=== PATIENT | male | born 1950 | race Caucasian/White ===

== ENCOUNTER → 2016-07-03 | Outpatient (CLI) | payer OTHER ==
[~2016-07-03] MED LIST: ACET300T2 PO; ASPEC81 PO; ATV5X PO; CALCTAB5 PO; CHOL100040 PO; CLOP1TAB5 PO; CYAN100020 PO; LPR25 PO; LPT40 PO; LSN/10125 PO; MULT-506 PO; NRN600 PO; TRAM-10 PO; XPNIN INH; [UNRECOGNIZED DRUG - CODE] SL
[2016-07-03 12:58] LABS: BLOOD UREA NITROGEN 21 mg/dl (7-18); BUN/CREATININE RATIO 21.4 (10-20); CARBON DIOXIDE 29 mmol/L (21-32); CHLORIDE 106 mmol/L (98-107); GLUCOSE 94 mg/dl (70-99); MAGNESIUM 2.1 mg/dl (1.8-2.4); SODIUM 144 mmol/L (136-145)
== END | disposition home or self-care (01) ==
LOC: C.LABPVFM 08:21
PROVIDERS: ATTEND Internal Medicine Interventional Cardiology
DX: I25.10 Atherosclerotic heart disease of native coronary artery without angina pectoris (principal)

== ENCOUNTER → 2017-06-12 | Outpatient (CLI) | payer OTHER ==
--- NOTE | 2017-06-12 16:03 | DIAGNOSTIC IMAGING REPORT ---
THORACIC SPINE 3 VIEWS HISTORY: Upper back pain. STRAIN MUSCLE AND TENDON OF BACK WALL OF THORAX COMPARISON: Thoracic spine 08/28/2012. FINDINGS: There is no fracture. No subluxation. Suture material and surgical clips within the upper abdomen. Paraspinal soft tissues are unremarkable. Flowing anterior osteophytes within the mid to lower thoracic spine have progressed. Mild degenerative disc disease seen within the thoracic spine again noted. IMPRESSION: No fracture or subluxation within the thoracic spine. Electronically signed by: Yovany Briceno M.D. 06/12/2017 4:02 PM Dictated Date/Time: 06/12/2017 4:00 PM
== END | disposition home or self-care (01) ==
LOC: C.RADPV 15:35
PROVIDERS: ATTEND Family Medicine
DX: S29.012A Strain of muscle and tendon of back wall of thorax, initial encounter (principal); X58.XXXA Exposure to other specified factors, initial encounter

== ENCOUNTER 2019-10-15 05:19 | Inpatient (IN) ==
--- NOTE | 2019-10-15 05:41 | Emergency Department Note ---
Impression & Plan Acute GI bleeding, Syncope, Anemia ED Provider Note NAME: CHRISTINA MILLER AGE: 69 SEX: M ARRIVES VIA: Ambulance INFORMANT: Patient EMS ED PROVIDER(S): Sara Ayoub DO CHIEF COMPLAINT: Syncope PLAN: Disposition: The patient was admitted to the [facility] Condition: Guarded MEDICAL DECISION MAKING: This is a 69-year-old male patient with a history of gastric bypass from 2003 who presents to the emergency department with multiple episodes of syncope. The patient was significantly hypotensive on scene and required a liter of normal saline solution to fluid resuscitate him to a blood pressure of 90/55. Laboratory testing revealed significant anemia with a hemoglobin of 6. The patient was typed and crossed for 2 units of packed red blood cells. A Protonix drip was started. On physical exam, the patient was mentating normally here in the emergency department but had obvious melena from the rectum. The patient has no history of this in the past. He has no other associated symptoms. He did have multiple episodes of diarrhea tonight in between the episodes of passing out. Triage Nursing notes reviewed and agree them. Additional history obtained from EMS Prior medical records reviewed Vital Signs: reviewed and remarkable for hypotension Differential diagnosis: Dehydration, anemia, GI bleed, medication side effects ER treatment provided: IV normal saline solution Diagnostics interpreted by me: ECG: Normal sinus rhythm at 78 with PACs. No obvious ischemia no ST segment elevation. No T wave inversion Cardiac Monitoring: Normal sinus rhythm at 72 Laboratory studies: See below HPI: 69/M arrives for evaluation of syncope. This is a 69-year-old male patient who awoke to let his dog out. He was feeling fine until he went to the bathroom and had an episode of diarrhea. The patient describes having an episode of syncope which he landed on the floor. Upon regaining consciousness, the patient continued to feel lightheaded. He had further episodes of diarrhea and called EMS. Upon EMS arrival, the patient's blood pressure was 64/41. After 1 L of IV normal saline solution, the patient's blood pressure was 90/55. The patient denies ever having episodes of hypotension like this in the past. I spoke with the patient's on the phone and she describes him having some recent hip pain for which she was taking diclofenac over approximately 10 days. ROS: See above HPI for pertinent positives & negatives. A total of 10 systems reviewed and were otherwise negative. PAST MEDICAL HISTORY:See Below PAST SURGICAL HISTORY:See Below FAMILY HISTORY:See Below SOCIAL HISTORY:See Below HOME MEDICATIONS:See Below ALLERGIES:See Below VITALS:See Below PHYSICAL EXAMINATION: This is a pleasant 69-year-old male patient who is somewhat pale and diaphoretic on physical exam. HEENT: Head - normocephalic and atraumatic Pupils are equal, round, and reactive to light. Extraocular eye muscles are intact, and sclera are anicteric. Nose - moist nasal mucosa without discharge. Mouth - moist buccal mucosa. Oropharynx is nonerythematous and there is no tonsillar exudate or edema noted. Neck: Supple; no cervical lymphadenopathy or thyromegaly Heart: Regular rate and rhythm. There is a normal S1 and S2 with no murmurs, clicks, or gallops appreciated. Lungs: Clear to auscultation bilaterally with no wheezes, rales, or rhonchi. Abdomen: Soft, completely nontender, nondistended, with good bowel sounds. There are no palpable pulsatile masses or hepatosplenomegaly. There is no guarding, rigidity, or rebound noted. Extremities: No evidence of cyanosis, clubbing, or edema. There are easily palpable peripheral pulses. Skin: Pale, warm and diaphoretic with good turgor and no rashes. ED COURSE: Times/Reassessments: 0525: The patient was evaluated in room C9. A complete history and physical was performed. Previous electronic medical records were reviewed. A second IV lock was initiated and the patient was bolused with 500 cc of normal saline solution. He was typed and screened. An order was placed for continuous cardiac monitoring. He remained in a normal sinus rhythm at 72. A twelve-lead EKG was obtained. 0620: I reviewed the results of the laboratory studies with the patient. He was consented for a blood transfusion. 0630: I spoke with the patient's on the phone. I ordered a IV Protonix drip. I discussed the case with Dr. Kirkpatrick who will evaluate the patient for further care. I have personally spent greater than 50 minutes of critical care time in the dir ect management of this patient. This includes bedside care, interpretation of diagnostic studies, and testing, discussion with consultants, patient, and family members, and other required patient management activities. This 50 minutes in excess of all separately billable procedures. Sara Ayoub DO Past Med/Surg History Medical History (Updated 10/15/19 @ 07:17 by Sara Ayoub DO) Acute ID, inferior wall (Inactive) Acute ID, true posterior wall (Inactive) Adrenal myelolipoma (Resolved) Arthritis (Chronic) Coronary artery disease (Chronic) Hypertension (Chronic) Nephrolithiasis (Resolved) Presence of drug coated stent in posterior descending branch of right coronary artery (Resolved) Presence of drug coated stent in right coronary artery (Resolved) Renal cyst, acquired (Resolved) Surgical History (Updated 10/15/19 @ 07:08 by Nasir Pennington MD) History of cholecystectomy History of gastric bypass History of gastric surgery S/P cataract surgery Social History Preferred Language: Japanese marital status: Current Living Situation: Spouse current occupational status: retired Feels Safe at Home: Yes Smoking Status: Current every day smoker Cigarettes Per Day: 5 ; Hx Alcohol Use: Yes Alcohol Intake Frequency: Daily Hx Substance Use: No Dental Care, Regularly: No Seatbelt Use: always Allergies Allergies Allergy/AdvReac Type Severity Reaction Status Date / Time atorvastatin Allergy Unknown Verified 10/07/19 14:36 grass pollen Allergy Unknown Verified 10/07/19 14:36 house dust Allergy Unknown Verified 10/07/19 14:36 house dust mite Allergy Unknown Verified 10/07/19 14:36 verapamil Allergy Unknown Verified 10/07/19 14:36 Beta-Blockers Allergy Verified 10/07/19 14:36 (Beta-Adrenergic Bloc Home Meds Home Medications Medication Instructions Recorded Confirmed cholecalciferol (vitamin D3) 125 5,000 units PO DAILY cap 03/22/19 10/15/19 mcg (5,000 unit) capsule Previous Rx's Medication Instructions Recorded aspirin 81 mg tablet,delayed 81 mg PO DAILY #30 tab 02/18/19 release metoprolol succinate 25 mg 25 mg PO DAILY #90 tab 04/08/19 tablet,extended release 24 hr lisinopril 10 mg tablet 10 mg PO DAILY #90 tab 09/08/19 clopidogrel 75 mg tablet 75 mg PO DAILY #90 tab 09/22/19 diclofenac sodium 75 mg 75 mg PO BID PRN #20 tab 09/30/19 tablet,delayed release tramadol 50 mg tablet 50 mg PO TID PRN #30 tab 10/07/19 Results & Data (ED) Vital Signs Vital Signs - 24 hr 10/15/19 05:25 10/15/19 05:31 10/15/19 05:59 Temperature 36.4 C L Temperature Source Oral Pulse Rate 72 87 72 Pulse Rate [Right Finger] Pulse Rate from SpO2 Sensor 77 Respiratory Rate 18 23 24 Respiratory Effort / Characteristics Respiratory Depth Normal Blood Pressure 113/72 93/64 L 118/64 Blood Pressure [Right Arm] Blood Pressure Mean 85 72 82 Blood Pressure Mean [Right Arm] Pulse Oximetry 95 91 100 Oxygen Delivery Method Room Air Room Air Room Air Sepsis Recent Fever Within 48 Hours No Sepsis Action Taken by Nursing No Action Required 10/15/19 06:30 10/15/19 07:06 Temperature Temperature Source Pulse Rate 84 Pulse Rate [Right Finger] 88 Pulse Rate from SpO2 Sensor 84 Respiratory Rate 20 20 Respiratory Effort / Characteristics Non-Labored Respiratory Depth Normal Blood Pressure 112/61 Blood Pressure [Right Arm] 100/66 Blood Pressure Mean 84 Blood Pressure Mean [Right Arm] 77 Pulse Oximetry 100 99 Oxygen Delivery Method Room Air Room Air Sepsis Recent Fever Within 48 Hours Sepsis Action Taken by Nursing Laboratory Data Result diagrams: 10/15/19 05:30 10/15/19 05:30 Lab Results 10/15/19 10/15/19 10/15/19 Range/Units 05:30 05:30 05:40 WBC 17.63 H (4.8-10.8) K/uL RBC 2.66 L (4.7-6.1) M/uL Hgb 6.8 L* (14.0-18.0) g/dL Hct 22.4 L (42-52) % MCV 84.2 (80-100) fL MCH 25.6 (25-34) pg MCHC 30.4 L (32-36) g/dL RDW Std Deviation 47.4 H (36.4-46.3) fL RDW Coeff of Td 15.4 H (11.5-14.5) % Plt Count 456 H (130-400) K/uL MPV 8.8 (7.4-10.4) fL Immature Gran % (Auto) 1.7 % Neut % (Auto) 82.0 % Lymph % (Auto) 9.8 % [place] % (Auto) 5.8 % Eos % (Auto) 0.5 % Baso % (Auto) 0.2 % Immature Gran # (Auto) 0.30 H (0.00-0.02) K/uL Neut # (Auto) 14.46 H (1.4-6.5) K/uL Lymph # (Auto) 1.72 (1.2-3.4) K/uL [place] # (Auto) 1.03 H (0.11-0.59) K/uL Eos # (Auto) 0.08 (0-0.5) K/uL Baso # (Auto) 0.04 (0-0.2) K/uL Absolute Nucleated RBC 0.03 H (0-0) K/uL Nucleated RBC % (auto) 0.2 % Polychromasia 1+ Hypochromasia Present Anisocytosis Present Sodium 143 (136-145) mmol/L Potassium 4.0 (3.5-5.1) mmol/L Chloride 113 H (98-107) mmol/L Carbon Dioxide 27 (21-32) mmol/L Anion Gap 3.0 (3-11) BUN 33 H (7-18) mg/dl Creatinine 1.07 (0.6-1.4) mg/dl Est Cr Clr Drug Dosing 90.8 ml/min Est GFR ( Amer) 81.7 Est GFR (Non-Af Amer) 70.5 BUN/Creatinine Ratio 31.3 H (10-20) Glucose 162 H (70-99) mg/dl Calcium 8.2 L (8.5-10.1) mg/dl Magnesium 2.0 (1.8-2.4) mg/dl Total Bilirubin 0.1 L (0.2-1) mg/dl AST 26 (15-37) U/L ALT 32 (12-78) U/L Alkaline Phosphatase 91 (45-117) U/L Troponin I < 0.015 (0-0.045) ng/ml Total Protein 5.6 L (6.4-8.2) gm/dl Albumin 2.3 L (3.4-5.0) gm/dl Globulin 3.3 (2.5-4.0) gm/dl Albumin/Globulin Ratio 0.7 L (0.9-2) TSH 2.280 (0.300-4.500) uIu/ml Blood Type O Positive Antibody Screen NEGATIVE Crossmatch See Detail Administered Medications Discontinued Medications Sodium Chloride (Nss) 500 mls @ 999 mls/hr IV .Q31M ODILON Stop: 10/15/19 06:15 Last Infusion: 10/15/19 06:42 Dose: 0 mls/hr Documented by: [id number] Admin: 10/15/19 06:00 Dose: 999 mls/hr Documented by: [id number] Discharge Plan Visit Data Chief Complaint: Hypotension Stated Complaint: HYPOTENSION/SYNCOPE Other Complaint: Syncope ED Provider: Sara Ayoub Discharge Problem: Acute GI bleeding, Syncope, Anemia Forms Stand Alone Forms: [facility] Prescriptions Prescriptions: No Action clopidogrel 75 mg tablet 75 mg PO DAILY Qty: 90 RF: 3 diclofenac sodium 75 mg tablet,delayed release (DR/EC) 75 mg PO BID PRN (Reason: pain) Qty: 20 RF: 0 aspirin 81 mg tablet,delayed release (DR/EC) 81 mg PO DAILY Qty: 30 RF: 2 metoprolol succinate 25 mg tablet extended release 24 hr 25 mg PO DAILY Qty: 90 RF: 3 cholecalciferol (vitamin D3) 5,000 unit capsule 5,000 units PO DAILY RF: 0 lisinopril 10 mg tablet 10 mg PO DAILY Qty: 90 RF: 1 tramadol 50 mg tablet 50 mg PO TID PRN (Reason: pain) Qty: 30 RF: 0 Discharge Problem: Syncope Qualifiers: Syncope type: unspecified Qualified Code(s): R55 - Syncope and collapse Anemia Qualifiers: Anemia type: other cause Other causes of anemia: acute posthemorrhagic Qualified Code(s): D62 - Acute posthemorrhagic anemia
[2019-10-15] MEDS ORDERED: SODIUM CHLORIDE 0.9% 500 ML IV SCH (05:45)
[2019-10-15 06:02] LABS: Hematocrit (blood only) 22.4 % (42-52); Hemoglobin 6.8 g/dL (14.0-18.0); Mean Corpuscular Hemoglobin 25.6 pg (25-34); Mean Corpuscular Hgb Conc 30.4 g/dL (32-36); Mean Corpuscular Volume 84.2 fL (80-100); Mean Platelet Volume 8.8 fL (7.4-10.4); Nucleated RBC # (auto) 0.03 K/uL (0-0); Nucleated RBC % (auto) 0.2 %; Platelet Count 456 K/uL (130-400); RDW Coefficient of Variation 15.4 % (11.5-14.5); RDW Standard Deviation 47.4 fL (36.4-46.3); Red Blood Count 2.66 M/uL (4.7-6.1); White Blood Count 17.63 K/uL (4.8-10.8)
[2019-10-15 06:07] LABS: Alanine Aminotransferase 32 U/L (12-78); Albumin Level 2.3 gm/dl (3.4-5.0); Aspartate Aminotransferase 26 U/L (15-37); BUN Creatinine Ratio 31.3 (10-20); Blood Urea Nitrogen 33 mg/dl (7-18); Calcium 8.2 mg/dl (8.5-10.1); Carbon Dioxide 27 mmol/L (21-32); Chloride 113 mmol/L (98-107); Creatinine Clr Calc Pharmacy 90.8 ml/min; Est GFR (African American) 81.7; Est GFR (Non-African American) 70.5; Glucose 162 mg/dl (70-99); INR 1.1 (0.9-1.1); Prothrombin Time 11.4 Seconds (9.0-12.0); Sodium 143 mmol/L (136-145)
[2019-10-15] MEDS ORDERED: SODIUM CHLORIDE 0.9% 250 ML IV PRN ×3 (06:14→18:14)
[2019-10-15 06:18] LABS: Albumin Globulin Ratio 0.7 (0.9-2); Alkaline Phosphatase 91 U/L (45-117); Bilirubin,Total 0.1 mg/dl (0.2-1); Globulin 3.3 gm/dl (2.5-4.0); Total Protein 5.6 gm/dl (6.4-8.2); Troponin I < 0.015 ng/ml (0-0.045)
[2019-10-15 06:44] LABS: Anisocytosis Present; Basophils # (auto) 0.04 K/uL (0-0.2); Basophils % (auto) 0.2 %; Eosinophils # (auto) 0.08 K/uL (0-0.5); Eosinophils % (auto) 0.5 %; Hypochromasia Present; Immature Granulocytes % (auto) 1.7 %; Lymphocytes # (auto) 1.72 K/uL (1.2-3.4); Lymphocytes % (auto) 9.8 %; Monocytes # (auto) 1.03 K/uL (0.11-0.59); Monocytes % (auto) 5.8 %; Neutrophils # (auto) 14.46 K/uL (1.4-6.5); Polychromasia 1+
[2019-10-15] MEDS ORDERED: cefTRIAXone SODIUM 350 MG/ML IM IM ONE (07:13)
[2019-10-15] MEDS ORDERED: cefTRIAXone SODIUM 1000MG/50ML D5W IV ONE (07:14)
--- NOTE | 2019-10-15 07:15 | History & Physical Report ---
Date of Service October 15, 2019 Assessment & Plan (1) Bright red blood per rectum: BRBPR/history gastric bypass/history of colon cancer- Consult [facility] gastroenterology, has been sent reminder letter for colonoscopy on 06/19/2019. Serial H&H every 4 hours. N.p.o. status Pantoprazole IV. e Present on Admission?: Yes (2) Symptomatic anemia: Hemoglobin 6.8 upon admission, due to acute blood loss. H&H every 6 hours. Patient is ordered 2 units PRBCs by the ED. Pantoprazole IV, continue from the ED orders. Give 2 units FFP. Give DDAVP IV. Present on Admission?: Yes (3) History of gastric bypass: See above Present on Admission?: Yes (4) Coronary artery disease: CAD/hypertension/ischemic cardiomyopathy- Follows with cardiology Dr. Burton. Hold aspirin and clopidogrel. Hold lisinopril and metoprolol succinate. Follow symptoms as patient was given DDAVP. Present on Admission?: Yes (5) Hypertension: See above Present on Admission?: Yes (6) Cardiomyopathy, ischemic: See above Present on Admission?: Yes (7) Idiopathic peripheral neuropathy: Hold diclofenac and tramadol Present on Admission?: Yes (8) Dyslipidemia: No medications listed. Has allergy to atorvastatin noted. Present on Admission?: Yes (9) Pancreatic neoplasm: Noted Present on Admission?: Yes History of Present Illness Chief Complaint: The patient is a 69-year-old male with a past medical history of CAD, hypertension, pancreatic neoplasm, idiopathic peripheral neuropathy, dyslipidemia and ischemic cardiomyopathy. He presents to the emergency department with complaint of 2 episodes of syncope/near syncope, with the first occurring shortly after 12:55 AM, when he got up to take his dog outside. First time he woke up, he was jammed in between the commode and sink, with his walker on top of him. He reports that he called his , was unable to hear him and did not see him after the first episode. He then went into his living room, and later on was about to get up again, when he started leaning to the side, almost passed out, at that time his caught him and head made against the wall and called EMS. Patient has not had any previous episodes of GI bleeding. He does have history gastric bypass, and is on aspirin and clopidogrel. Hemoglobin in the emergency department was 6.8, and initial blood pressure recorded in the field was 60/46. He did respond to 1 L normal saline with improvement in blood pressure to 93/58. He denies any abdominal pain, nausea or vomiting. Primary Care Provider: ARELI Nicole The patient presents to the emergency department via EMS with complaint of 2 syncopal episodes, with the first at 12:55 AM while in the bathroom. Allergies Allergy/AdvReac Type Severity Reaction Status Date / Time atorvastatin Allergy Unknown Verified 10/07/19 14:36 grass pollen Allergy Unknown Verified 10/07/19 14:36 house dust Allergy Unknown Verified 10/07/19 14:36 house dust mite Allergy Unknown Verified 10/07/19 14:36 verapamil Allergy Unknown Verified 10/07/19 14:36 Beta-Blockers Allergy Verified 10/07/19 14:36 (Beta-Adrenergic Bloc Home Medications Home Medications Medication Instructions Recorded Confirmed Type aspirin 81 mg tablet,delayed 81 mg PO DAILY #30 tab 02/18/19 10/15/19 Rx release cholecalciferol (vitamin D3) 125 5,000 units PO DAILY cap 03/22/19 10/15/19 History mcg (5,000 unit) capsule metoprolol succinate 25 mg 25 mg PO DAILY #90 tab 04/08/19 10/15/19 Rx tablet,extended release 24 hr lisinopril 10 mg tablet 10 mg PO DAILY #90 tab 09/08/19 10/15/19 Rx clopidogrel 75 mg tablet 75 mg PO DAILY #90 tab 09/22/19 10/15/19 Rx diclofenac sodium 75 mg 75 mg PO BID PRN #20 tab 09/30/19 10/15/19 Rx tablet,delayed release tramadol 50 mg tablet 50 mg PO TID PRN #30 tab 10/07/19 10/15/19 Rx Past Med/Surg History Social History Preferred Language: Nepali marital status: Current Living Situation: Spouse current occupational status: retired Feels Safe at Home: Yes Smoking Status: Current every day smoker Cigarettes Per Day: 5 ; Hx Alcohol Use: Yes Alcohol Intake Frequency: Daily Hx Substance Use: No Dental Care, Regularly: No Seatbelt Use: always Review of Systems Review of Systems: The patient denies chest pain, palpitations, shortness of breath, dyspnea on exertion, cough, lower extremity swelling, sore throat, fevers, chills, sweats, nausea, vomiting, abdominal pain, pelvic pain, blood in urine, dysuria, urinary frequency or urgency, lightheadedness, dizziness, headache, rash, focal weakness, numbness or tingling in arms or legs, generalized arthralgias or myalgias, back or neck pain, or night sweats. The review of systems is otherwise negative other than for that already noted above, and at least 10 systems have been reviewed. Physical Exam Physical Exam: The patient is awake, alert and oriented 3, well developed and well nourished, normocephalic and atraumatic, lying in bed and in no acute distress. HEENT--PERRL, EOMI, mucous membranes and oropharynx dry. Neck--supple. No JVD. No bruits. Thyroid normal, trachea midline, no adenopathy. Heart--normal S1 and S2. No murmurs, rubs or gallops. Lungs--clear bilaterally, no respiratory distress, no accessory muscle use. Abdomen--normal bowel sounds and soft. Nontender. Nondistended. Obese. Extremities--no cyanosis or clubbing. No edema. Dermatologic--normal skin turgor, normal color, no abnormal lymph nodes, no rash. Neurologic--cranial nerves II through XII grossly intact. Rheumatologic--normal range of motion. Psychiatric--normal affect. Results & Data Results & Data ([facility]) Vital Signs (Past 12 Hours) Vital Signs Temp Pulse Resp BP Pulse Ox 10/15/19 06:30 84 20 112/61 100 10/15/19 05:59 72 24 118/64 100 10/15/19 05:31 87 23 93/64 L 91 10/15/19 05:25 97.5 F L 72 18 113/72 95 Laboratory Results Laboratory Results WBC 17.63 K/uL (4.8-10.8) H 10/15/19 05:30 RBC 2.66 M/uL (4.7-6.1) L 10/15/19 05:30 Hgb 6.8 g/dL (14.0-18.0) L* 10/15/19 05:30 Hct 22.4 % (42-52) L 10/15/19 05:30 MCV 84.2 fL (80-100) 10/15/19 05:30 MCH 25.6 pg (25-34) 10/15/19 05:30 MCHC 30.4 g/dL (32-36) L 10/15/19 05:30 RDW Std Deviation 47.4 fL (36.4-46.3) H 10/15/19 05:30 RDW Coeff of Td 15.4 % (11.5-14.5) H 10/15/19 05:30 Plt Count 456 K/uL (130-400) H 10/15/19 05:30 MPV 8.8 fL (7.4-10.4) 10/15/19 05:30 Immature Gran % (Auto) 1.7 % 10/15/19 05:30 Neut % (Auto) 82.0 % 10/15/19 05:30 Lymph % (Auto) 9.8 % 10/15/19 05:30 [place] % (Auto) 5.8 % 10/15/19 05:30 Eos % (Auto) 0.5 % 10/15/19 05:30 Baso % (Auto) 0.2 % 10/15/19 05:30 Immature Gran # (Auto) 0.30 K/uL (0.00-0.02) H 10/15/19 05:30 Neut # (Auto) 14.46 K/uL (1.4-6.5) H 10/15/19 05:30 Lymph # (Auto) 1.72 K/uL (1.2-3.4) 10/15/19 05:30 [place] # (Auto) 1.03 K/uL (0.11-0.59) H 10/15/19 05:30 Eos # (Auto) 0.08 K/uL (0-0.5) 10/15/19 05:30 Baso # (Auto) 0.04 K/uL (0-0.2) 10/15/19 05:30 Absolute Nucleated RBC 0.03 K/uL (0-0) H 10/15/19 05:30 Nucleated RBC % (auto) 0.2 % 10/15/19 05:30 Polychromasia 1+ 10/15/19 05:30 Hypochromasia Present 10/15/19 05:30 Anisocytosis Present 10/15/19 05:30 Sodium 143 mmol/L (136-145) 10/15/19 05:30 Potassium 4.0 mmol/L (3.5-5.1) 10/15/19 05:30 Chloride 113 mmol/L (98-107) H 10/15/19 05:30 Carbon Dioxide 27 mmol/L (21-32) 10/15/19 05:30 Anion Gap 3.0 (3-11) 10/15/19 05:30 BUN 33 mg/dl (7-18) H 10/15/19 05:30 Creatinine 1.07 mg/dl (0.6-1.4) 10/15/19 05:30 Est Cr Clr Drug Dosing 90.8 ml/min 10/15/19 05:30 Est GFR ( Amer) 81.7 10/15/19 05:30 Est GFR (Non-Af Amer) 70.5 10/15/19 05:30 BUN/Creatinine Ratio 31.3 (10-20) H 10/15/19 05:30 Glucose 162 mg/dl (70-99) H 10/15/19 05:30 Calcium 8.2 mg/dl (8.5-10.1) L 10/15/19 05:30 Magnesium 2.0 mg/dl (1.8-2.4) 10/15/19 05:30 Total Bilirubin 0.1 mg/dl (0.2-1) L 10/15/19 05:30 AST 26 U/L (15-37) 10/15/19 05:30 ALT 32 U/L (12-78) 10/15/19 05:30 Alkaline Phosphatase 91 U/L (45-117) 10/15/19 05:30 Troponin I < 0.015 ng/ml (0-0.045) 10/15/19 05:30 Total Protein 5.6 gm/dl (6.4-8.2) L 10/15/19 05:30 Albumin 2.3 gm/dl (3.4-5.0) L 10/15/19 05:30 Globulin 3.3 gm/dl (2.5-4.0) 10/15/19 05:30 Albumin/Globulin Ratio 0.7 (0.9-2) L 10/15/19 05:30 TSH 2.280 uIu/ml (0.300-4.500) 10/15/19 05:30 Crossmatch See Detail 10/15/19 05:40 Code Status & VTE Plan Code Status Full code VTE Prophylaxis Plan VTE Prophylaxis will be ordered: Yes PG Care Time/CCT Total # of Minutes Spent Total Time Spent with Patient: Total time spent is greater than 50% in coordination of care (as documented) at patient's floor/unit and/or counseling patient: Coding Level of Care Code 36729 Initial Inpt Care Lvl 3 Diagnoses Bright red blood per rectum K62.5 Symptomatic anemia D64.9 History of gastric bypass Z98.84 Coronary artery disease I25.10 Hypertension I10 Cardiomyopathy, ischemic I25.5 Idiopathic peripheral neuropathy G60.9 Dyslipidemia E78.5 Pancreatic neoplasm D49.0
[2019-10-15 07:19] LABS: Partial Thromboplastin Ratio 0.7; Partial Thromboplastin Time < 20.0 Seconds (21.0-31.0)
[2019-10-15] MEDS: PANTOprazole 40 MG in DEXTROSE 5% 100 ML IV SCH ×4 (07:33→21:24)
[2019-10-15] MEDS ORDERED: ACETAMINOPHEN 1000 MG/100 ML IV IV PRN (09:58)
[2019-10-15] MEDS ORDERED: DEXTROSE 50% 50 ML SYRINGE IV PRN (09:58)
[2019-10-15] MEDS ORDERED: INSULIN ASPART 100 UNITS/ML 3 ML PEN SC SCH (09:58)
[2019-10-15] MEDS ORDERED: ONDANSETRON INJ 2 MG/ML 2 ML VIAL IV PRN (09:58)
[2019-10-15] MEDS ORDERED: GLUCOSE 10 TABS/TUBE PO PRN (09:58)
[2019-10-15] MEDS ORDERED: GLUCOSE 40% GEL 15 GM TUBE PO PRN (09:58)
[2019-10-15] MEDS ORDERED: CARBOHYDRATES FOR HYPOGLYCEMIA PO PRN (09:58)
[2019-10-15] MEDS ORDERED: GLUCAGON FOR INJ 1 MG VIAL SQ PRN (09:58)
[2019-10-15] MEDS ORDERED: DESMOPRESSIN ACETATE IV ONE (10:15)
[2019-10-15] MEDS ORDERED: SODIUM CHLORIDE 0.9% IV ONE (10:15)
--- NOTE | 2019-10-15 10:30 | Gastrointestinal Consultation ---
Date of Consultation October 15, 2019 Assessment & Plan (1) Syncope: (2) Anemia: 69 yo male with h/o RYGB on ASa, Plavix and recently steroids, diclofenac, and tramadol for hip pain. Admitted after syncopal eipsode x 2 at home. Transient hypotension. Noted to have ?melena and diarrhea. Hgb 6.8 (baseline unknown). Ddx includes anastomotic ulcer related to anticoagulants with recent superimposed NSAIDs and steroids. Ischemic colitis also a possibility. - NPO except for ice chips and sips of clears. NPO after MN tonight. - Follow H/H. Transfuse PRN. Please obtain most recent outpatient hgb for comparison. - Check B12 and folate levels given RYGB. - Hemodynamic monitoring. - Continue PPI gtt. - Continue with volume resuscitation. - Will plan for EGD tomorrow. Patient agreeable. Procedure discussed in detail with patient at bedside. (3) History of gastric bypass: (4) Acute GI bleeding: (5) Symptomatic anemia: History of Present Illness Reason for Consultation: syncope, anemia, ?GI bleed Attending Physician: Nasir Pennington MD History of Present Illness Mr. Mcgregor is a 69 yo male with multiple medical problems including CAD, HTN, ischemic cardiomyopathy, and RYGB 2003 who presented to the ER after 2 syncopal episodes at home. He had several loose stools in between reported as very dark. he does not think there was any red blood. His called EMS and he was noted to be hypotensive on their arrival. Responded to 1 liter IVF resuscitation. On evaluation in the ER he was noted to be anemic with a hgb of 6.8 (baseline hgb is unknown, last documented one in the health record is from 2009 and was 15). BUN mildly elevated. No nausea, vomiting or abdominal pain. He has been on a steroid taper as well as diclofenac then tramadol for hip pain over the last 2-3 weeks. He denies taking any OTC NSAIDs. He is on ASA and Plavix for his heart. He does not have a history of GI bleeding. He has a history of adenomatous colon polyps and last colonoscopy was 2014(no polyps). He is due for surveillance. He is currently hemodynamically stable with SBP in the 110's. No abd pain. No BM in several hours. On PPI gtt. Allergies Allergy/AdvReac Type Severity Reaction Status Date / Time atorvastatin Allergy Unknown Verified 10/07/19 14:36 grass pollen Allergy Unknown Verified 10/07/19 14:36 house dust Allergy Unknown Verified 10/07/19 14:36 house dust mite Allergy Unknown Verified 10/07/19 14:36 verapamil Allergy Unknown Verified 10/07/19 14:36 Beta-Blockers Allergy Verified 10/07/19 14:36 (Beta-Adrenergic Bloc Home Medications Home Medications Medication Instructions Recorded Confirmed Type aspirin 81 mg tablet,delayed 81 mg PO DAILY #30 tab 02/18/19 10/15/19 Rx release cholecalciferol (vitamin D3) 125 5,000 units PO DAILY cap 03/22/19 10/15/19 History mcg (5,000 unit) capsule metoprolol succinate 25 mg 25 mg PO DAILY #90 tab 04/08/19 10/15/19 Rx tablet,extended release 24 hr lisinopril 10 mg tablet 10 mg PO DAILY #90 tab 09/08/19 10/15/19 Rx clopidogrel 75 mg tablet 75 mg PO DAILY #90 tab 09/22/19 10/15/19 Rx diclofenac sodium 75 mg 75 mg PO BID PRN #20 tab 09/30/19 10/15/19 Rx tablet,delayed release tramadol 50 mg tablet 50 mg PO TID PRN #30 tab 10/07/19 10/15/19 Rx Patient History Medical History (Updated 10/15/19 @ 07:17 by Sara Ayoub DO) Acute RI, inferior wall (Inactive) Acute RI, true posterior wall (Inactive) Adrenal myelolipoma (Resolved) Arthritis (Chronic) Coronary artery disease (Chronic) Hypertension (Chronic) Nephrolithiasis (Resolved) Presence of drug coated stent in posterior descending branch of right coronary artery (Resolved) Presence of drug coated stent in right coronary artery (Resolved) Renal cyst, acquired (Resolved) Surgical History (Updated 10/15/19 @ 07:08 by Nasir Pennington MD) History of cholecystectomy History of gastric bypass History of gastric surgery S/P cataract surgery Social History Preferred Language: [place] Communication Ability: Effective Botany Technician Required: No Beliefs That Will Affect Care: None marital status: Current Living Situation: Spouse current occupational status: retired Feels Safe at Home: Yes Smoking Status: Current every day smoker Tobacco Type: cigars ; Cigarettes Per Day: 5-7 ; Second Hand Exposure: Yes ; Hx Alcohol Use: Yes Alcohol type: beer Alcohol Intake Frequency: Daily Hx Substance Use: No Dental Care, Regularly: No Seatbelt Use: always Review of Systems Review of Systems: All systems reviewed & are unremarkable except as noted in HPI & below Physical Exam Constitutional: WD/WN, vitals as above Eyes: PERRL, conjunctivae normal, anicteric sclerae Neck: trachea midline, no thyromegaly Respiratory: normal respiratory effort, lungs clear to auscultation Cardiovascular: RRR, no murmur, no edema Gastrointestinal (Abdomen): normal bowel sounds, soft, nontender, no hepatosplenomegaly Musculoskeletal: no cyanosis or clubbing, extremities motor strength 5/5 Neurologic: CN's II-XI intact bilaterally Results & Data ([facility]) Vital Signs (Past 12 Hours) Vital Signs Temp Pulse Pulse Resp BP BP Pulse Ox 10/15/19 09:42 37.2 C 93 H 20 118/76 97 10/15/19 09:36 37.2 C 93 H 20 118/76 97 10/15/19 09:21 78 20 109/79 99 10/15/19 09:06 36.6 C 82 20 114/72 100 10/15/19 08:51 36.6 C 97 H 20 115/76 97 10/15/19 08:31 36.8 C 96 H 20 107/66 98 10/15/19 07:06 88 20 100/66 99 10/15/19 06:30 84 20 112/61 100 10/15/19 05:59 72 24 118/64 100 10/15/19 05:31 87 23 93/64 L 91 10/15/19 05:25 36.4 C L 72 18 113/72 95 (1) Anemia Anemia type: other cause Other causes of anemia: acute posthemorrhagic Qualified Code(s): D62 - Acute posthemorrhagic anemia (2) Syncope Syncope type: unspecified Qualified Code(s): R55 - Syncope and collapse
[2019-10-15] MEDS: ALBUMIN 25% 50 ML IV SCH ×2 (13:24→14:17)
--- NOTE | 2019-10-15 14:27 | Electrocardiogram Report ---
Test Reason : Blood Pressure : / mmHG Vent. Rate : 078 BPM Atrial Rate : 078 BPM P-R Int : 118 ms QRS Dur : 094 ms QT Int : 436 ms P-R-T Axes : 015 -11 -30 degrees QTc Int : 497 ms Poor data quality, interpretation may be adversely affected Sinus rhythm with Premature atrial complexes Cannot rule out Inferior infarct , age undetermined Abnormal ECG When compared with ECG of 24-JAN-2016 09:25, Premature atrial complexes are now Present T wave inversion less evident in Inferior leads Nonspecific T wave abnormality has replaced inverted T waves in Lateral leads Confirmed by Santiago Wallace ([id number]) on 10/15/2019 2:27:15 PM Referred By: REFERRED SELF Confirmed By:Santiago Wallace
--- NOTE | 2019-10-15 14:38 | Family Medicine Progress Note ---
Date of Service October 15, 2019 Assessment & Plan Admission and Anticipated Discharge Date Admission Date: October 15, 2019 Subjective Feeling better this afternoon as compared to on admission. Results & Data ([facility]) Vital Signs (Past 12 Hours) Vital Signs Temp Pulse Pulse Resp BP BP Pulse Ox 10/15/19 14:20 37.1 C 119 H 20 135/80 98 10/15/19 13:50 36.9 C 102 H 18 117/73 100 10/15/19 13:35 36.9 C 98 H 20 99/65 L 99 10/15/19 13:20 36.9 C 91 H 18 110/64 100 10/15/19 13:13 36.9 C 95 H 18 110/64 98 10/15/19 12:43 37.2 C 83 18 107/72 98 10/15/19 11:46 91 H 18 105/68 98 10/15/19 11:16 37.2 C 95 H 18 109/72 98 10/15/19 11:01 37.0 C 90 18 105/74 100 10/15/19 10:45 37.2 C 92 H 18 101/71 93 10/15/19 10:41 37.2 C 93 H 20 106/71 99 10/15/19 10:32 105 H 10/15/19 09:42 37.2 C 93 H 20 118/76 97 10/15/19 09:36 37.2 C 93 H 20 118/76 97 10/15/19 09:21 78 20 109/79 99 10/15/19 09:06 36.6 C 82 20 114/72 100 10/15/19 08:51 36.6 C 97 H 20 115/76 97 10/15/19 08:31 36.8 C 96 H 20 107/66 98 10/15/19 07:06 88 20 100/66 99 10/15/19 06:30 84 20 112/61 100 10/15/19 05:59 72 24 118/64 100 10/15/19 05:31 87 23 93/64 L 91 10/15/19 05:25 36.4 C L 72 18 113/72 95
[2019-10-15 14:53] LABS: Appearance Urine Clear (Clear); Bacteria Urine Automated 1+ (Negative); Bilirubin Urine Negative (Negative); Blood Urine Negative (Negative); Color Urine Yellow; Epithelial Cell Urine Auto 0-5 /lpf (0-5); Glucose Urine UA Negative (Negative); Ketones Urine Negative (Negative); Leukocyte Esterase Urine 1+ (Negative); Nitrite Urine Negative (Negative); Protein Urine Negative (Negative); RBC Urine Automated 0-4 /hpf (0-4); Specific Gravity Urine 1.023 (1.000-1.030); Urobilinogen Urine Negative (Negative); WBC Urine Automated >30 /hpf (0-5)
[2019-10-15 17:57] LABS: Hematocrit (blood only) 20.3 % (42-52); Hemoglobin 6.3 g/dL (14.0-18.0)
--- NOTE | 2019-10-15 19:24 | Communication Note ---
Date of Service: October 15, 2019 feeling ok. no further bleeding. Hgb did not come up though. hemodynamically stable abd soft nd nt no guarding no rebound GI bleeding, acute blood loss anemia - concern on anastomotic bleed. protonix, ongoing transfusions, continue to follow closely. anticipate scope tomorrow.
[2019-10-16] MEDS: PANTOprazole 40 MG in DEXTROSE 5% 100 ML IV SCH ×4 (02:15→19:27)
[2019-10-16 04:07] LABS: Basophils # (auto) 0.03 K/uL (0-0.2); Basophils % (auto) 0.3 %; Eosinophils # (auto) 0.09 K/uL (0-0.5); Hematocrit (blood only) 23.3 % (42-52); Hemoglobin 7.4 g/dL (14.0-18.0); Immature Granulocytes # (auto) 0.15 K/uL (0.00-0.02); Immature Granulocytes % (auto) 1.6 %; Lymphocytes # (auto) 1.87 K/uL (1.2-3.4); Lymphocytes % (auto) 19.7 %; Mean Corpuscular Hemoglobin 27.2 pg (25-34); Mean Corpuscular Hgb Conc 31.8 g/dL (32-36); Mean Corpuscular Volume 85.7 fL (80-100); Mean Platelet Volume 8.5 fL (7.4-10.4); Monocytes % (auto) 8.4 %; Neutrophils # (auto) 6.53 K/uL (1.4-6.5); Nucleated RBC # (auto) 0.03 K/uL (0-0); Nucleated RBC % (auto) 0.3 %; Platelet Count 331 K/uL (130-400); RDW Coefficient of Variation 15.6 % (11.5-14.5); RDW Standard Deviation 48.6 fL (36.4-46.3); Red Blood Count 2.72 M/uL (4.7-6.1); White Blood Count 9.47 K/uL (4.8-10.8)
[2019-10-16 04:18] LABS: INR 1.1 (0.9-1.1); Partial Thromboplastin Ratio 0.8; Partial Thromboplastin Time 23.1 Seconds (21.0-31.0); Prothrombin Time 11.5 Seconds (9.0-12.0)
[2019-10-16 04:22] LABS: Alanine Aminotransferase 35 U/L (12-78); Albumin Level 2.6 gm/dl (3.4-5.0); Aspartate Aminotransferase 23 U/L (15-37); BUN Creatinine Ratio 41.2 (10-20); Blood Urea Nitrogen 32 mg/dl (7-18); Calcium 8.4 mg/dl (8.5-10.1); Carbon Dioxide 27 mmol/L (21-32); Chloride 114 mmol/L (98-107); Creatinine Clr Calc Pharmacy 120.8 ml/min; Est GFR (African American) 106.2; Est GFR (Non-African American) 91.6; Glucose 100 mg/dl (70-99); Magnesium 2.1 mg/dl (1.8-2.4); Potassium 3.7 mmol/L (3.5-5.1); Sodium 145 mmol/L (136-145)
[2019-10-16 04:27] LABS: Albumin Globulin Ratio 0.8 (0.9-2); Alkaline Phosphatase 78 U/L (45-117); Bilirubin,Total 0.5 mg/dl (0.2-1); Globulin 3.1 gm/dl (2.5-4.0); Total Protein 5.7 gm/dl (6.4-8.2); Troponin I < 0.015 ng/ml (0-0.045)
[2019-10-16 04:58] LABS: Hypochromasia Present; Polychromasia 1+
[2019-10-16 06:05] LABS: Estimated Average Glucose 108 mg/dl; Hemoglobin A1C 5.4 % (4.5-5.6)
[2019-10-16] MEDS ORDERED: cefTRIAXone SODIUM 2,000 MG in DEXTROSE 5% 50 ML IV SCH (07:00)
--- NOTE | 2019-10-16 08:31 | Gastroenterology Progress Note ---
Date of Service October 16, 2019 Assessment & Plan (1) Anemia: (2) Acute GI bleeding: (3) Syncope: (4) History of gastric bypass: Pt is a 69 yo male with h/o RYGB on ASA, Plavix and recently steroids, diclofenac, and tramadol for hip pain. Admitted after syncopal eipsode x 2 at home. Transient hypotension. Noted to have ?melena and diarrhea. Hgb 6.8 -> 7.4 after 3U PRBC, 2U FFP yesterday. No more BMs or signs of GI bleeding since admission. Abd exam benign - Keep NPO - Continue PPI gtt - EGD today w Dr. Modi. GI will give further recs after EGD is completed - Continue IVF resuscitation - Monitor blood ct and transfuse prn Admission and Anticipated Discharge Date Admission Date: October 15, 2019 Supervising Physician Co-Signing Physician Notes I have seen and examined the patient with ARELI Blake whose note reflects our findings and plan. Patient has not had a hgb checked since 2013 - it was normal at that time. No BM since admission. No abd pain. No nausea or vomiting. Abd obese and non-tender. Received 3 units of PRBC. hgb 7.4 today in the absence of any overt s/s of bleeding. EGD today to r/o anastomotic ulcer. Subjective Pt received 3U PRBC, 2FFP yesterday, Hgb up to 7.4. He denies any CP, SOB, light headedness, dizziness, abd pain, n/v, no more BMs since prior to admission Review of Systems Review of Systems: All systems reviewed & are unremarkable except as noted in HPI & below Physical Exam Constitutional: WD/WN, vitals as above + obese, well groomed, cooperative and comfortable Eyes: PERRL, conjunctivae normal, anicteric sclerae ENMT: external ear and nose normal, oropharynx normal Respiratory: normal respiratory effort, lungs clear to auscultation Cardiovascular: RRR, no murmur, no edema Gastrointestinal (Abdomen): normal bowel sounds, soft, nontender, no hepatosplenomegaly Skin: no rashes, warm and dry no jaundice Psychiatric: A+Ox3, euthymic affect Lymphatic: no lymphedema Results & Data ([facility]) Vital Signs (Past 12 Hours) Vital Signs Temp Pulse Pulse Resp BP BP Pulse Ox 10/16/19 07:34 36.8 C 76 22 134/85 94 10/16/19 04:38 36.9 C 83 16 130/79 95 10/16/19 01:54 94 H 20 138/78 95 10/16/19 01:24 90 20 135/82 95 10/16/19 00:54 88 20 135/83 94 10/16/19 00:24 37.3 C 94 H 20 124/76 95 10/16/19 00:10 37.3 C 90 20 135/73 95 10/15/19 23:55 37.3 C 89 20 130/76 95 10/15/19 23:42 115 H 10/15/19 23:39 37.4 C 95 H 20 131/78 90 10/15/19 23:23 37.2 C 91 H 20 127/76 95 10/15/19 21:42 37.5 C 99 H 20 130/82 94 10/15/19 20:42 37.5 C 99 H 20 114/66 94 (1) Anemia Anemia type: other cause Other causes of anemia: acute posthemorrhagic Qualified Code(s): D62 - Acute posthemorrhagic anemia (2) Syncope Syncope type: unspecified Qualified Code(s): R55 - Syncope and collapse
--- NOTE | 2019-10-16 08:48 | Anesthesiology Consultation ---
Date of Service October 16, 2019 History Surgery Operation Date: 10/16/19 16:00 Proposed Procedures p Esophagogastroduodenoscopy Dr Modi - Lillie Modi Height/Weight Height: 5 ft 9 in Weight: 138 kg Allergies Allergy/AdvReac Type Severity Reaction Status Date / Time atorvastatin Allergy Unknown Verified 10/07/19 14:36 grass pollen Allergy Unknown Verified 10/07/19 14:36 house dust Allergy Unknown Verified 10/07/19 14:36 house dust mite Allergy Unknown Verified 10/07/19 14:36 verapamil Allergy Unknown Verified 10/07/19 14:36 Beta-Blockers Allergy Verified 10/07/19 14:36 (Beta-Adrenergic Bloc Medications Home Medications Medication Instructions Recorded Confirmed Last Taken aspirin 81 mg tablet,delayed 81 mg PO DAILY #30 tab 02/18/19 10/15/19 10/14/19 release cholecalciferol (vitamin D3) 125 5,000 units PO DAILY cap 03/22/19 10/15/19 10/14/19 mcg (5,000 unit) capsule metoprolol succinate 25 mg 25 mg PO DAILY #90 tab 04/08/19 10/15/19 10/14/19 tablet,extended release 24 hr lisinopril 10 mg tablet 10 mg PO DAILY #90 tab 09/08/19 10/15/19 10/14/19 clopidogrel 75 mg tablet 75 mg PO DAILY #90 tab 09/22/19 10/15/19 10/14/19 diclofenac sodium 75 mg 75 mg PO BID PRN #20 tab 09/30/19 10/15/19 Unknown tablet,delayed release tramadol 50 mg tablet 50 mg PO TID PRN #30 tab 10/07/19 10/15/19 Unknown Active Medications Generic Name Dose Route Start Last Admin Trade Name Freq PRN Reason Stop Dose Admin Pantoprazole Sodium 40 mg/ 100 mls @ 20 mls/hr 10/15/19 07:00 10/16/19 07:06 Dextrose IV 11/14/19 06:59 8 mg/hr Q5H ODILON 20 mls/hr Administration 8 MG/HR Ceftriaxone Sodium 2,000 mg/ 70 mls @ 100 mls/hr 10/16/19 07:00 10/16/19 08:23 Dextrose IV 10/26/19 06:59 100 mls/hr Q24H ODILON Administration Protocol Insulin Aspart 0 units 10/15/19 09:58 10/15/19 10:24 Novolog Flexpen SC 11/14/19 09:57 Not Given Q6 ODILON Past Medical History Medical History Acute NC, inferior wall (Inactive) Acute NC, true posterior wall (Inactive) Adrenal myelolipoma (Resolved) Arthritis (Chronic) Coronary artery disease (Chronic) Hypertension (Chronic) Nephrolithiasis (Resolved) Presence of drug coated stent in posterior descending branch of right coronary artery (Resolved) Presence of drug coated stent in right coronary artery (Resolved) Renal cyst, acquired (Resolved) Past Family History Family History Father Prostate cancer Denies family history of Ovarian cancer Myocardial infarction Breast cancer Colorectal cancer Past Surgical History Surgical History (Updated 10/16/19 @ 08:48 by Odessa Guy MD) History of cholecystectomy History of gastric bypass History of gastric surgery S/P cataract surgery Social History Smoking Status: Current every day smoker tobacco type: cigars Smoking cigarettes per day: 5-7 Do You Dip or Chew Tobacco: No Hx Alcohol Use: Yes Alcohol type: beer alcohol intake frequency: 0-2 drinks per day Hx Substance Use: No substance use type: does not use Physical Exam Vital Signs Last Vital Signs Temp 36.8 C 10/16/19 07:34 Pulse 76 10/16/19 07:34 Resp 22 10/16/19 07:34 BP 134/85 10/16/19 07:34 Pulse Ox 94 10/16/19 07:34 Testing Laboratory Results 10/16/19 03:40 10/16/19 03:40 PT 11.5 Seconds (9.0-12.0) 10/16/19 03:40 INR 1.1 (0.9-1.1) 10/16/19 03:40 APTT 23.1 Seconds (21.0-31.0) 10/16/19 03:40 Hemoglobin A1c 5.4 % (4.5-5.6) 10/16/19 03:40 Urine Color Yellow 10/15/19 12:49 Urine Appearance Clear (Clear) 10/15/19 12:49 Urine pH 5.0 (4.5-7.5) 10/15/19 12:49 Ur Specific [place] 1.023 (1.000-1.030) 10/15/19 12:49 Urine Protein Negative (Negative) 10/15/19 12:49 Urine Glucose (UA) Negative (Negative) 10/15/19 12:49 Urine Ketones Negative (Negative) 10/15/19 12:49 Urine Nitrite Negative (Negative) 10/15/19 12:49 Ur Leukocyte Esterase 1+ (Negative) H 10/15/19 12:49 Urine WBC (Auto) >30 /hpf (0-5) H 10/15/19 12:49 Urine RBC (Auto) 0-4 /hpf (0-4) 10/15/19 12:49 U Hyaline Cast (Auto) 5-10 /lpf (0-5) H 10/15/19 12:49 U Epithel Cells (Auto) 0-5 /lpf (0-5) 10/15/19 12:49 Urine Bacteria (Auto) 1+ (Negative) H 10/15/19 12:49 Blood Type O Positive 10/15/19 05:40 Antibody Screen NEGATIVE 10/15/19 05:40 10/15/19 12:49 Urine Culture - Preliminary Urine,Clean Catch Enterococcus species 10/16/19 10/16/19 06:45 00:31 POC Glucose 111 H 118 H Electrocardiogram Date: 10/15/19 Sinus rhythm with Premature atrial complexes Cannot rule out Inferior infarct , age undetermined Abnormal ECG When compared with ECG of 24-JAN-2016 09:25, Premature atrial complexes are now Present T wave inversion less evident in Inferior leads Nonspecific T wave abnormality has replaced inverted T waves in Lateral leads Confirmed by Santiago Wallace ([id number]) on 10/15/2019 2:27:15 PM Echocardiogram ECHO 2016: EF 40-45%, severe hypokinesis
--- NOTE | 2019-10-16 09:56 | GI REPORT ---
Patient Name: Midna Mcgregor Procedure Date: 10/16/2019 9:33 AM Date of : 1950 Admit Type: Inpatient Age: 69 Gender: Male Attending MD: Lillie Modi DO Procedure: Upper GI endoscopy Providers: Lillie Modi DO Referring MD: Melvin Soni Indications: Acute post hemorrhagic anemia, Melena; in setting RYGB 2004 - on JORGE, plavix, recent steroid as well as NSAIDs Medicines: Propofol per Anesthesia Complications: No immediate complications. Estimated blood loss: None. Estimated Blood Loss: Estimated blood loss: none. Procedure: Pre-Anesthesia Assessment: - Prior to the procedure, a History and Physical was performed, and patient medications, allergies and sensitivities were reviewed. The patient's tolerance of previous anesthesia was reviewed. - The risks and benefits of the procedure and the sedation options and risks were discussed with the patient. All questions were answered and informed consent was obtained. - Patient identification and proposed procedure were verified prior to the procedure by the physician and the nurse. The procedure was verified in the pre-procedure area in the procedure room. - Mental Status Examination: alert and oriented. Airway Examination: normal oropharyngeal airway and neck mobility. Respiratory Examination: clear to auscultation. CV Examination: normal. Abdominal Examination: bowel sounds present, abdomen soft and non-tender, no masses or organomegaly noted. - ASA Grade Assessment: IV - A patient with severe systemic disease that is a constant threat to life. After obtaining informed consent, the endoscope was passed under direct vision. Throughout the procedure, the patient's blood pressure, pulse, and oxygen saturations were monitored continuously. The Endoscope was introduced through the mouth, and advanced to the jejunum. The upper GI endoscopy was accomplished without difficulty. The patient tolerated the procedure well. Findings: The esophagus was normal. Evidence of a Galilea-en-Y gastrojejunostomy was found. The gastrojejunal anastomosis was characterized by healthy appearing mucosa. This was traversed. The jejunojejunal anastomosis was characterized by ulceration. One very large non-bleeding deep cratered ulcer was found at the anastomosis. Impression: - Normal esophagus. - Galilea-en-Y gastrojejunostomy with gastrojejunal anastomosis characterized by healthy appearing mucosa. - One non-bleeding jejunal ulcer. - No specimens collected. Recommendation: - Continue with PPI gtt for total of 72 hours - Primary service will need to risk stratify his anticoagulation needs. - Absolutely no NSAIDs. - Can add misoprostol at time of discharge. - BID PPI at time of discharge. - Repeat EGD in 8 weeks. - Clear liquid diet OK today. - Return patient to hospital [facility] for ongoing care. Lillie Modi D.O. Lillie Modi, 10/16/2019 9:56:28 AM This report has been signed electronically. Note Initiated On: 10/16/2019 9:33 AM Number of Addenda: 0 I attest to the content of the Intraoperative Record and orders documented therein, exceptions below {[id number]}
--- NOTE | 2019-10-16 09:58 | Family Medicine Progress Note ---
Date of Service October 16, 2019 Assessment & Plan (1) Acute GI bleedin yo F PMHx Galilea-En-Y gastric bypass surgery, CAD on aspirin and Plavix, hip pain on chronic tramadol and diclofenac, HTN, admitted for GI bleed. Symptomatic anemia 2/2 acute GI bleed: - Hgb 7.4 this morning following a total of 4 units of PRBCs in the last 24 hours; 6.3 prior to transfusion. - Will continue to monitor Hgb and transfuse as needed. - H/H q12 hours; next drawn now, if stable may d/c tele. - Had EGD this morning which showed: - Normal esophagus. - Galilea-en-Y gastrojejunostomy with gastrojejunal anastomosis characterized by healthy appearing mucosa. - One non-bleeding jejunal ulcer. - Appreciate GI recommendations: - Continue with PPI gtt for total of 72 hours. - Absolutely no NSAIDs. - Can add misoprostol at time of discharge. - BID PPI at time of discharge. - Repeat EGD in 8 weeks. - Clear liquid diet OK today. - Given acute GIB, will continue to hold aspirin and Plavix. Osteoarthritis: - Tylenol PRN pain. - Can add tramadol if not well controlled. Code Status: FULL CODE FEN/GI: clear liquid diet until tomorrow AM DVT ppx: contraindicated in the setting of symptomatic anemia and acute GIB; SCDs Dispo: Telemetry; to Med/Surg if Hgb this afternoon is stable (2) Anemia: (3) Syncope: (4) History of gastric bypass: (5) Osteoarthritis of left hip: (6) Cardiomyopathy, ischemic: (7) Dyslipidemia: (8) Idiopathic peripheral neuropathy: (9) Pancreatic neoplasm: (10) Hypertension: (11) Coronary artery disease: (12) Arthritis: Admission and Anticipated Discharge Date Admission Date: October 15, 2019 Supervising Physician Co-Signing Physician Notes I personally examined the patient and verified all webster points of history and exam, discussed case, and agree with decision making with Dr Henderson. feeling better eating clears. notes he had some dark stools otherwise feels fine. updated at his request. vitals noted nad heent nc at mmm breathing unlabored no accessory muscles good effort no pallor or icterus GI bleed -steroid and NSAID induced, probably asa/plavix exacerbated severity -large deep ulcer -protonix gtt x72hrs acute blood loss anemia -required 4 units PRBC now more stable CAD w stent -fortunately no angina and stent ~4yrs old so current situation appears safe to hold antiplatelets. has injection on 10/26 so would hold until then; main question will be with stent being 4yrs old and pt appaering clinically stable - ?resume both or just plavix once he is able. either way will need to be closely followed once antiplatelet(s) are resumed. (+) urine culture but zero urinary symptoms - either contaminant or asymptomatic bacteriuria otherwise as above Subjective Patient without acute events overnight. No abnormalities on telemetry. Feels well, no nausea or vomiting, no bloody BMs, passing lots of gas. No dizziness, weakness, headaches, chest pain, SOB. For EGD today. Review of Systems Review of Systems: All systems reviewed & are unremarkable except as noted in Subjective Physical Exam Constitutional: WD/WN, vitals as above Respiratory: normal respiratory effort, lungs clear to auscultation Cardiovascular: RRR, no murmur, no edema Gastrointestinal (Abdomen): normal bowel sounds, soft, nontender, no hepatosplenomegaly Skin: no rashes, warm and dry Psychiatric: A+Ox3, euthymic affect Results & Data ([facility]) Vital Signs (Past 12 Hours) Vital Signs Temp Pulse Pulse Resp BP BP Pulse Ox 10/16/19 09:51 89 16 145/94 H 95 10/16/19 09:08 36.9 C 83 20 139/88 98 10/16/19 07:34 36.8 C 76 22 134/85 94 10/16/19 04:38 36.9 C 83 16 130/79 95 10/16/19 01:54 94 H 20 138/78 95 10/16/19 01:24 90 20 135/82 95 10/16/19 00:54 88 20 135/83 94 10/16/19 00:24 37.3 C 94 H 20 124/76 95 10/16/19 00:10 37.3 C 90 20 135/73 95 10/15/19 23:55 37.3 C 89 20 130/76 95 10/15/19 23:42 115 H 10/15/19 23:39 37.4 C 95 H 20 131/78 90 10/15/19 23:23 37.2 C 91 H 20 127/76 95 Resident Activity Tracking Resident Involvement: Resident Care Provided Care Provided: Adult Hospital Medicine (1) Anemia Anemia type: other cause Other causes of anemia: acute posthemorrhagic Qualified Code(s): D62 - Acute posthemorrhagic anemia (2) Syncope Syncope type: unspecified Qualified Code(s): R55 - Syncope and collapse
--- NOTE | 2019-10-16 12:59 | Anesthesiology Progress Note ---
Date of Service October 16, 2019 Anesthesia Post Procedure Vital Signs Vital Signs: Temp Pulse Pulse Resp BP BP Pulse Ox 10/16/19 12:01 36.5 C 82 18 147/79 H 100 10/16/19 10:33 62 10/16/19 10:19 84 20 159/95 H 98 10/16/19 10:05 79 16 155/95 H 96 10/16/19 09:51 89 16 145/94 H 95 10/16/19 09:08 36.9 C 83 20 139/88 98 10/16/19 07:34 36.8 C 76 22 134/85 94 10/16/19 04:38 36.9 C 83 16 130/79 95 10/16/19 01:54 94 H 20 138/78 95 10/16/19 01:24 90 20 135/82 95 10/16/19 00:54 88 20 135/83 94 10/16/19 00:24 37.3 C 94 H 20 124/76 95 10/16/19 00:10 37.3 C 90 20 135/73 95 10/15/19 23:55 37.3 C 89 20 130/76 95 10/15/19 23:42 115 H 10/15/19 23:39 37.4 C 95 H 20 131/78 90 10/15/19 23:23 37.2 C 91 H 20 127/76 95 10/15/19 21:42 37.5 C 99 H 20 130/82 94 10/15/19 20:42 37.5 C 99 H 20 114/66 94 10/15/19 20:12 37.5 C 122 H 20 143/75 H 95 10/15/19 19:42 37.4 C 116 H 20 134/75 94 10/15/19 19:24 37.4 C 114 H 22 134/75 94 10/15/19 19:12 37.4 C 115 H 20 124/79 94 10/15/19 18:57 37.4 C 103 H 18 128/80 94 10/15/19 18:37 37.4 C 98 H 18 162/91 H 98 10/15/19 16:30 37 C 99 H 18 126/78 95 10/15/19 16:28 126/78 10/15/19 15:49 37.2 C 107 H 24 116/80 100 10/15/19 14:20 37.1 C 119 H 20 135/80 98 10/15/19 13:50 36.9 C 102 H 18 117/73 100 10/15/19 13:35 36.9 C 98 H 20 99/65 L 99 10/15/19 13:20 36.9 C 91 H 18 110/64 100 10/15/19 13:13 36.9 C 95 H 18 110/64 98 Transfer of Care Handoff Completed per policy Notes Mental Status: alert / awake / arousable and participated in evaluation Patient Amnestic to Procedure: Yes Nausea / Vomiting: adequately controlled Pain: adequately controlled Airway Patency, RR, SpO2: stable & adequate BP & HR: stable & adequate Hydration State: stable & adequate Anesthetic Complications: no major complications apparent and Pt Satisfied with anesthetic care
[2019-10-16 15:24] LABS: Hematocrit (blood only) 25.9 % (42-52); Hemoglobin 8.2 g/dL (14.0-18.0)
--- NOTE | 2019-10-16 19:11 | Billing Data ---
Date of Service October 16, 2019 Coding Level of Care Code 53865 Subseq Hosp Care Lvl 3
[2019-10-17] MEDS: PANTOprazole 40 MG in DEXTROSE 5% 100 ML IV SCH ×5 (00:10→18:46)
[2019-10-17 06:33] LABS: Basophils # (auto) 0.04 K/uL (0-0.2); Basophils % (auto) 0.5 %; Eosinophils # (auto) 0.16 K/uL (0-0.5); Eosinophils % (auto) 2.2 %; Hematocrit (blood only) 23.5 % (42-52); Hemoglobin 7.4 g/dL (14.0-18.0); Immature Granulocytes # (auto) 0.19 K/uL (0.00-0.02); Immature Granulocytes % (auto) 2.6 %; Lymphocytes # (auto) 1.76 K/uL (1.2-3.4); Lymphocytes % (auto) 23.8 %; Mean Corpuscular Hemoglobin 27.2 pg (25-34); Mean Corpuscular Hgb Conc 31.5 g/dL (32-36); Mean Corpuscular Volume 86.4 fL (80-100); Mean Platelet Volume 8.5 fL (7.4-10.4); Monocytes # (auto) 0.68 K/uL (0.11-0.59); Monocytes % (auto) 9.2 %; Neutrophils # (auto) 4.55 K/uL (1.4-6.5); Neutrophils % (auto) 61.7 %; Nucleated RBC # (auto) 0.02 K/uL (0-0); Nucleated RBC % (auto) 0.3 %; Platelet Count 295 K/uL (130-400); RDW Coefficient of Variation 15.8 % (11.5-14.5); RDW Standard Deviation 49.4 fL (36.4-46.3); Red Blood Count 2.72 M/uL (4.7-6.1); White Blood Count 7.38 K/uL (4.8-10.8)
[2019-10-17 07:21] LABS: Polychromasia 1+
--- NOTE | 2019-10-17 07:43 | Family Medicine Progress Note ---
Date of Service October 17, 2019 Assessment & Plan (1) Acute GI bleedin yo F PMHx Galilea-En-Y gastric bypass surgery, CAD on aspirin and Plavix, hip pain on chronic tramadol and diclofenac, HTN, admitted for GI bleed. Symptomatic anemia 2/2 acute GI bleed: - Hgb 7.4 this morning, from 8.2 yesterday. - Will continue to monitor Hgb and transfuse as needed. - CBC qAM. Patient is asymptomatic at this time. - Will d/c telemetry. - Had EGD this yesterday which showed: - Normal esophagus. - Galilea-en-Y gastrojejunostomy with gastrojejunal anastomosis characterized by healthy appearing mucosa. - One non-bleeding jejunal ulcer. - Jejunal ulcer likely 2/2 steroid and NSAID therapy shortly before admission. - Appreciate GI recommendations: - Continue with PPI gtt for total of 72 hours (10/18/2019 at 7AM). - Absolutely no NSAIDs. - Can add misoprostol at time of discharge. - BID PPI at time of discharge. - Repeat EGD in 8 weeks. - Will advance diet today. - Given acute GIB, will continue to hold aspirin and Plavix. - PCP follow up in 1 week following discharge; at that time check CBC and can consider addition of Plavix if CBC stable. Osteoarthritis: - Tylenol PRN pain. - Can add tramadol if not well controlled. Pt denies pain at this time. Code Status: FULL CODE FEN/GI: Full diet DVT ppx: contraindicated in the setting of symptomatic anemia and acute GIB; SCDs Dispo: Med/Surg (2) Anemia: (3) Syncope: (4) History of gastric bypass: (5) Osteoarthritis of left hip: (6) Cardiomyopathy, ischemic: (7) Dyslipidemia: (8) Idiopathic peripheral neuropathy: (9) Pancreatic neoplasm: (10) Hypertension: (11) Coronary artery disease: (12) Arthritis: Admission and Anticipated Discharge Date Admission Date: October 15, 2019 Supervising Physician Co-Signing Physician Notes I personally examined the patient and verified all webster points of history and exam, discussed case, and agree with decision making with Dr Henderson. feeling good overall. no new issues. eating OK. vitals noted nad heent nc at mmm breathing unlabored no accessory muscles good effort no pallor or icterus GI bleed -steroid and NSAID induced, probably asa/plavix exacerbated severity -large deep ulcer -protonix gtt x72hrs then PO protonix bid acute blood loss anemia -required 4 units PRBC now improved - Hgb noted to be lower than before, but continue to follow - clinically bleeding has resolved so is as likely to be lab variation as it is ongoing losses. CAD w stent -fortunately no angina and stent ~4yrs old so current situation appears safe to hold antiplatelets. no cardiac symptoms. has injection on 10/26 so would hold until then; main question will be with stent being 4yrs old and pt appaering clinically stable - ?resume both or just plavix once he is able. either way will need to be closely followed once antiplatelet(s) are resumed. (+) urine culture but zero urinary symptoms - either contaminant or asymptomatic bacteriuria otherwise as above Subjective Patient without acute events overnight. No abnormalities on telemetry. Feels well, no nausea or vomiting, no bloody BMs, passing lots of gas. No dizziness, weakness, headaches, chest pain, SOB. Reports last BM was more formed, but still "a little dark compared to normal". Review of Systems Constitutional: no fever, no chills and no malaise Respiratory: no cough and no dyspnea Cardiovascular: no chest pain, no palpitations and no edema Gastrointestinal: no abdominal pain and no constipation Physical Exam Constitutional: WD/WN, vitals as above Respiratory: normal respiratory effort, lungs clear to auscultation Cardiovascular: RRR, no murmur, no edema Gastrointestinal (Abdomen): normal bowel sounds, soft, nontender, no hepatosplenomegaly Skin: no rashes, warm and dry Psychiatric: A+Ox3, euthymic affect Results & Data ([facility]) Vital Signs (Past 12 Hours) Vital Signs Temp Pulse Pulse Resp BP Pulse Ox 10/17/19 07:10 36.6 C 77 20 123/80 96 10/17/19 03:53 37.1 C 77 16 117/78 95 10/17/19 00:00 77 10/16/19 23:12 37 C 82 16 119/74 96 Resident Activity Tracking Resident Involvement: Resident Care Provided Care Provided: Adult Hospital Medicine (1) Anemia Anemia type: other cause Other causes of anemia: acute posthemorrhagic Qualified Code(s): D62 - Acute posthemorrhagic anemia (2) Syncope Syncope type: unspecified Qualified Code(s): R55 - Syncope and collapse
--- NOTE | 2019-10-17 16:24 | Billing Data ---
Date of Service October 17, 2019 Coding Level of Care Code 01909 Subseq Hosp Care Lvl 3
[2019-10-18] MEDS: PANTOprazole 40 MG in DEXTROSE 5% 100 ML IV SCH ×2 (00:23→05:56)
[2019-10-18 08:12] LABS: Basophils # (auto) 0.04 K/uL (0-0.2); Basophils % (auto) 0.5 %; Eosinophils # (auto) 0.12 K/uL (0-0.5); Eosinophils % (auto) 1.6 %; Hematocrit (blood only) 30.1 % (42-52); Hemoglobin 9.5 g/dL (14.0-18.0); Immature Granulocytes # (auto) 0.14 K/uL (0.00-0.02); Immature Granulocytes % (auto) 1.8 %; Lymphocytes # (auto) 1.65 K/uL (1.2-3.4); Lymphocytes % (auto) 21.6 %; Mean Corpuscular Hemoglobin 26.8 pg (25-34); Mean Corpuscular Hgb Conc 31.6 g/dL (32-36); Mean Platelet Volume 8.8 fL (7.4-10.4); Monocytes # (auto) 0.59 K/uL (0.11-0.59); Monocytes % (auto) 7.7 %; Neutrophils # (auto) 5.11 K/uL (1.4-6.5); Neutrophils % (auto) 66.8 %; Platelet Count 328 K/uL (130-400); RDW Coefficient of Variation 15.8 % (11.5-14.5); RDW Standard Deviation 48.4 fL (36.4-46.3); Red Blood Count 3.54 M/uL (4.7-6.1); White Blood Count 7.65 K/uL (4.8-10.8)
[2019-10-18] MEDS ORDERED: PANTOprazole 40 MG TAB PO SCH (09:00)
--- NOTE | 2019-10-18 10:11 | Discharge Summary ---
Date of Service October 18, 2019 Admission HPI Per Admitting Provider The patient presents to the emergency department via EMS with complaint of 2 syncopal episodes, with the first at 12:55 AM while in the bathroom. Admission Exam Per Admitting Provider The patient is awake, alert and oriented 3, well developed and well nourished, normocephalic and atraumatic, lying in bed and in no acute distress. HEENT--PERRL, EOMI, mucous membranes and oropharynx dry. Neck--supple. No JVD. No bruits. Thyroid normal, trachea midline, no adenopathy. Heart--normal S1 and S2. No murmurs, rubs or gallops. Lungs--clear bilaterally, no respiratory distress, no accessory muscle use. Abdomen--normal bowel sounds and soft. Nontender. Nondistended. Obese. Extremities--no cyanosis or clubbing. No edema. Dermatologic--normal skin turgor, normal color, no abnormal lymph nodes, no rash. Neurologic--cranial nerves II through XII grossly intact. Rheumatologic--normal range of motion. Psychiatric--normal affect. Principal Diagnosis GI bleed secondary to jejunal ulceration Discharge Exam Constitutional WD/WN, vitals as above Respiratory normal respiratory effort, lungs clear to auscultation Cardiovascular RRR, no murmur, no edema Gastrointestinal (Abdomen) normal bowel sounds, soft, nontender, no hepatosplenomegaly Skin no rashes, warm and dry Psychiatric A+Ox3, euthymic affect Discharge Data Allergies Allergy/AdvReac Type Severity Reaction Status Date / Time atorvastatin Allergy Unknown Verified 10/16/19 09:02 grass pollen Allergy Unknown Verified 10/16/19 09:02 house dust Allergy Unknown Verified 10/16/19 09:02 house dust mite Allergy Unknown Verified 10/16/19 09:02 verapamil Allergy Unknown Verified 10/16/19 09:02 Beta-Blockers Allergy Verified 10/16/19 09:02 (Beta-Adrenergic Bloc Consultations 10/15/19 06:22 ED Decision to Admit Stat 10/15/19 06:59 Consult Gastroenterology Routine 10/15/19 09:58 Consult Case Management - Discharge Planning Routine Procedures Performed Operation Date: 10/16/19 16:00 Actual Procedures p [facility] ([facility]) Acute GI bleedin yo F PMHx Galilea-En-Y gastric bypass surgery, CAD on aspirin and Plavix, hip pain on chronic tramadol and diclofenac, HTN, admitted for GI bleed. Symptomatic anemia 2/2 acute GI bleed: - Hgb 9.5 this morning, from 7.4 yesterday. - Received a total of 4 units PRBCs during his admission due to lowest Hgb 6.3. - Had EGD this admission which showed: - Normal esophagus. - Galilea-en-Y gastrojejunostomy with gastrojejunal anastomosis characterized by healthy appearing mucosa. - One non-bleeding jejunal ulcer. - Jejunal ulcer likely 2/2 steroid and NSAID therapy shortly before admission. - Appreciate GI recommendations: - Continued PPI gtt for total of 72 hours (10/18/2019 at 7AM). - Absolutely no NSAIDs. - Repeat EGD in 8 weeks. - Tolerated advancement in diet well. - Will continue pantoprazole 40mg PO BID, misoprostol 200mcg PO q6h. - Given acute GIB, will continue to hold aspirin and Plavix. - Repeat CBC in 1 week, can restart Plavix at that time if Hgb stable. Osteoarthritis: - Tylenol and tramadol PRN pain. Dispo: home with self care (2) Anemia: (3) Syncope: (4) History of gastric bypass: (5) Osteoarthritis of left hip: (6) Cardiomyopathy, ischemic: (7) Dyslipidemia: (8) Idiopathic peripheral neuropathy: (9) Pancreatic neoplasm: (10) Hypertension: (11) Coronary artery disease: (12) Arthritis: Total Time Total Time Spent Total Time Spent (In Minutes): <30 Discharge Plan Discharge Items Patient Disposition: Home - Self-Care Reason For Visit: SYMPTOMATIC ANEMIA,GI BLEED, BRBPR Discharge Diagnosis: GI bleed due to peptic ulcer Activity: Per Instructions section Non-emergency contact: Primary Care Provider and [employer] Supervisor Call non-emergency contact if: you have any medication questions and your symptoms worsen Follow-up/Referrals: Marisabel Walker CRNP [Primary Care Provider] - Eliud Mckeon [Physician] - Diet: Other - See Diet Comment Diet Comment: Low Acid: No spicy or tomato-based foods Addtl Attending Provider Instructions: You were admitted for several episodes of passing out and found to have low blood counts. We gave you 4 units of blood in order to get your blood volume back up. You had a scope done which showed that you have an ulcer at the beginning of your intestine and that is why you have been bleeding. You were started on IV acid-blocking medication in order to help heal your ulcer. You continued to get better, and after 3 days on the IV acid-blocking medication you were switched to oral pills. You will continue to take these as directed below. You will need to have your scope repeated in 8 weeks in order to make sure that the ulcer has healed. Please follow up with Opal Walker within 1 week for a hospital follow up visit. At that time she will repeat some labwork to make sure that your blood counts are stable. 1) You will take pantoprazole 40mg, one pill every 12 hours. 2) You will take misoprostol 200mcg, one pill every 6 hours. These medications have been sent to [facility]. 3) For now you should stop taking your aspirin and Plavix. Your primary care doctor will let you know when to restart them. 4) It is important to avoid acidic foods such as coffee, tomatoes, spicy foods. If you start to feel dizzy, short of breath, lightheaded, have chest pain, or pass out again, please come back to the hospital Pending Studies at Discharge: No Stand-Alone Forms: My [facility], Smoking Cessation Medications and DC Order Prescriptions: New misoprostol 200 mcg tablet 200 mcg PO Q6H Qty: 120 RF: 0 pantoprazole 40 mg tablet,delayed release (DR/EC) 40 mg PO BID 30 Days Qty: 60 RF: 0 Continued metoprolol succinate 25 mg tablet extended release 24 hr 25 mg PO DAILY Qty: 90 RF: 3 cholecalciferol (vitamin D3) 5,000 unit capsule 5,000 units PO DAILY RF: 0 lisinopril 10 mg tablet 10 mg PO DAILY Qty: 90 RF: 1 tramadol 50 mg tablet 50 mg PO TID PRN (Reason: pain) Qty: 30 RF: 0 Discontinued clopidogrel 75 mg tablet 75 mg PO DAILY Qty: 90 RF: 3 diclofenac sodium 75 mg tablet,delayed release (DR/EC) 75 mg PO BID PRN (Reason: pain) Qty: 20 RF: 0 aspirin 81 mg tablet,delayed release (DR/EC) 81 mg PO DAILY Qty: 30 RF: 2 Discharge Orders: Discharge Order (Routine); Ordered 10/18/19 Ordered By: Marli Salcedo/Other Patient Handouts: Bleeding Gastrointestinal, Anemia Admission Data Admit Date/Time: 10/15/19 06:53 Attending Provider: Melvin Soni Admit Provider: Nasir Pennington Primary Care Provider: Marisabel Walker Other Providers: Nasir Pennington ; Eliud Mckeon Other Interventions: Discharge Summary Assessment (RN) Last Done: 10/18/19 11:30 DC Date/Time DO NOT enter until pt leaves facility: 10/18/19 12:54 Supervising Physician Co-Signing Physician Notes I personally examined the patient and verified all webster points of history and exam, discussed case, and agree with decision making with Dr Henderson. feels good and wants to go home. vitals noted nad heent nc at mmm breathing unlabored no accessory muscles good effort no pallor or icterus GI bleed -steroid and NSAID induced, probably asa/plavix exacerbated severity -large deep ulcer -protonix gtt x72hrs completed - now 40mg protonix PO bid at least until f/u scope -repeat scope in about 8wks acute blood loss anemia -required 4 units PRBC now improved - f/u Hgb as outpt CAD w stent -fortunately no angina and stent ~4yrs old so current situation appears safe to hold antiplatelets for short term. no cardiac symptoms. has injection on 10/26 so would hold until then; main question will be with stent being 4yrs old and pt appaering clinically stable - ?resume both or just plavix once he is able. either way will need to be closely followed once antiplatelet(s) are resumed. would start plavix as soon as is safe after injections, then if asa needed to be resumed would resume that after about 1-2wks on plavix and only if clinically stable and Hgb stable. (+) urine culture but zero urinary symptoms - either contaminant or asymptomatic bacteriuria otherwise as above Resident Activity Tracking Resident Involvement: Resident Care Provided Care Provided: Adult Hospital Medicine
--- NOTE | 2019-10-18 14:22 | Billing Data ---
Date of Service October 18, 2019 Coding Level of Care Code D/C Day Management <30 mins
== END 2019-10-18 12:54 | disposition home or self-care (01) | DRG 813 ==
LOC: ED 05:19 → 2S 06:53 → SUATTDRO 06:53 → 2S 09:21 → 2N 10-17 11:52
DX: Z91.048 Other nonmedicinal substance allergy status; Z95.5 Presence of coronary angioplasty implant and graft; Z79.899 Other long term (current) drug therapy; Z79.82 Long term (current) use of aspirin; R19.7 Diarrhea, unspecified; D68.32 Hemorrhagic disorder due to extrinsic circulating anticoagulants; I25.10 Atherosclerotic heart disease of native coronary artery without angina pectoris; I25.2 Old myocardial infarction; G60.9 Hereditary and idiopathic neuropathy, unspecified; F17.210 Nicotine dependence, cigarettes, uncomplicated; M16.12 Unilateral primary osteoarthritis, left hip; R55 Syncope and collapse; T45.8X5A Adverse effect of other primarily systemic and hematological agents, initial encounter; I25.5 Ischemic cardiomyopathy; Z88.8 Allergy status to other drugs, medicaments and biological substances; I95.9 Hypotension, unspecified; R82.71 Bacteriuria; Z79.02 Long term (current) use of antithrombotics/antiplatelets; T38.0X5A Adverse effect of glucocorticoids and synthetic analogues, initial encounter; T39.015A Adverse effect of aspirin, initial encounter; Z85.038 Personal history of other malignant neoplasm of large intestine; I10 Essential (primary) hypertension; T39.395A Adverse effect of other nonsteroidal anti-inflammatory drugs [NSAID], initial encounter; D62 Acute posthemorrhagic anemia; Z98.84 Bariatric surgery status; K28.4 Chronic or unspecified gastrojejunal ulcer with hemorrhage

== ENCOUNTER 2019-10-31 18:04 | Observation (INO) ==
[2019-10-31] MEDS ORDERED: SODIUM CHLORIDE 0.9% 250 ML IV PRN ×2 (18:38→19:43)
[2019-10-31] MEDS ORDERED: PANTOPRAZOLE BOLUS/DRIP 1 EA IV STA (18:38)
[2019-10-31] MEDS ORDERED: PANTOprazole 80 MG in DEXTROSE 5% 100 ML IV ONE (18:38)
[2019-10-31] MEDS ORDERED: ONDANSETRON INJ 2 MG/ML 2 ML VIAL IV STA (18:38)
--- NOTE | 2019-10-31 18:44 | Emergency Department Note ---
Impression & Plan Acute GI bleeding, Syncope, Anemia, Heme positive stool ED Provider Note NAME: CHRISTINA MILLER AGE: 69 SEX: M : 1950 ARRIVES VIA: Ambulance INFORMANT: [Patient][ems] ED PROVIDER(S): [Melchor Baird MD] CHIEF COMPLAINT: Syncope, black stool HISTORY OF PRESENT ILLNESS: Patient is a 69-year-old male who was discharged from the hospital just under 2 weeks ago. He was in for upper GI bleeding. The patient states that today, he was weak and dizzy and got nauseated. He had some stomach discomfort that was mild in severity. He had a bowel movement that was black in color, he had a syncopal event where he had to lower himself to the ground. Although he describes it as syncope, it does not appear that he truly lost consciousness. No injury or or pain since going to the floor. The patient states he did vomit some bloody looking material. The patient presents by EMS. The patient is concerned he is bleeding again. He states his last hemoglobin was about 8.8. He was told that with his last hospital visit, he was bleeding at an area where his gastric bypass comes together. He is not currently on aspirin or Plavix, they are being held. He is on a multivitamin. There is no chest pain, he was not really short of breath. He has not felt feverish. REVIEW OF SYSTEMS: See HPI for pertinent positives and negatives. A total of ten systems were reviewed and were otherwise negative. PMHx/PSHx: See Below SOCIAL HISTORY: See Below. PHYSICAL EXAM: GENERAL: Patient is in no acute distress. HEENT: No acute trauma, normocephalic atraumatic, mucous membranes moist, no nasal congestion, no scleral icterus. NECK: No stridor, no adenopathy, no meningismus, trachea is midline. LUNGS: Clear to auscultation bilaterally, no wheeze, no rhonchi, breath sounds equal. HEART: Without murmurs gallops or rubs, regular rate and rhythm. ABDOMEN: Soft, nontender, bowel sounds positive, no hernias, no peritonitis. EXTREMITIES: No cyanosis or edema, full range of motion of all the joints without pain or difficulty, no signs for acute trauma. NEUROLOGIC: Oriented x 3, no acute motor or sensory deficits, no focal weakness. SKIN: No rash, no jaundice, no diaphoresis. Pale. Rectal: Black stool, heme positive. DIFFERENTIAL DIAGNOSIS: Infection, dehydration, metabolic abnormality, hypo/hyperglycemia, electrolyte disturbance, upper or lower GI bleeding, dysrhythmia, anemia, hypoxia, cardiac sources, intracerebral event, toxicologic, neurologic, as well as other pathologies. EMERGENCY DEPARTMENT COURSE/PROCEDURES: ECG: Indication was GI bleeding and syncope. EKG shows a sinus rhythm with a short LA. The rate is 87. There is some nonspecific ST change in the inferior and lateral leads. There is no ST elevation, no PVCs. The QTc is 452. Continuous Cardiac Monitoring: An order was placed for continuous cardiac monitoring. The monitor shows a rate of 90 with sinus rhythm with a shorter LA. Critical Care Note: I have personally spent greater than 49 minutes of critical care time in the direct management of this patient. This includes bedside care, interpretation of diagnostic studies, and testing, discussion with consultants, patient, and family members, and other required patient management activities. This 49 minutes is in excess of all separately billable procedures. MEDICAL DECISION MAKING: There is a mild leukocytosis, this could be consistent with infection or the stress of his situation. The patient was anemic with a hemoglobin of 8.1. There was a slightly elevated platelet count at 403. No coagulopathy. No significant electrolyte abnormality or kidney failure. No worrisome liver enzyme elevation. EKG showed a sinus rhythm, no acute ischemia. Cardiac enzyme testing x1 is not consistent with acute cardiac injury. Chest film did not show pneumonia or CHF. I saw no free air. On my exam, the patient's stool was black in color and heme positive. The patient received IV saline for hydration. He was given a bolus of IV Protonix and placed on a Protonix drip. He received IV Zofran for nausea. He was ordered for packed red blood cells for transfusion. He did sign consent. The first unit was started here in the ED. The patient presents with a syncopal spell and weakness and dizziness. He has a black, heme positive stool. He is likely bleeding from an upper source. He is in need of packed red blood cells. Hospitalization is warranted. I did speak to the patient and case management. The on-call hospitalist has been consulted. Past Med/Surg History Medical History Acute [place], inferior wall (Inactive) Acute [place], true posterior wall (Inactive) Adrenal myelolipoma (Resolved) Arthritis (Chronic) Coronary artery disease (Chronic) Hypertension (Chronic) Nephrolithiasis (Resolved) Presence of drug coated stent in posterior descending branch of right coronary artery (Resolved) Presence of drug coated stent in right coronary artery (Resolved) Renal cyst, acquired (Resolved) Surgical History History of cholecystectomy History of gastric bypass History of gastric surgery S/P cataract surgery Family History Father Prostate cancer Denies family history of Ovarian cancer Myocardial infarction Breast cancer Colorectal cancer Social History Preferred Language: Burkinan Communication Ability: Effective 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 Beliefs That Will Affect Care: None marital status: Current Living Situation: Spouse current occupational status: retired Other Information That Helps Us Care for You: No Feels Safe at Home: Yes Safety Concerns: Feels Safe At This Time Smoking Status: Current every day smoker Tobacco Type: cigars ; Cigarettes Per Day: 5 ; Second Hand Exposure: Yes ; Hx Alcohol Use: Yes Alcohol type: beer Alcohol Intake Frequency: Daily Hx Substance Use: No Dental Care, Regularly: No Seatbelt Use: always Allergies Allergies Allergy/AdvReac Type Severity Reaction Status Date / Time atorvastatin Allergy Unknown . Verified 10/31/19 19:44 grass pollen Allergy Unknown . Verified 10/31/19 19:44 house dust Allergy Unknown . Verified 10/31/19 19:44 house dust mite Allergy Unknown . Verified 10/31/19 19:44 verapamil Allergy Unknown . Verified 10/31/19 19:44 Beta-Blockers Allergy . Verified 10/31/19 19:44 (Beta-Adrenergic Bloc Home Meds Home Medications Medication Instructions Recorded Confirmed cholecalciferol (vitamin D3) 25 25 mcg PO QAM 10/23/19 10/31/19 mcg (1,000 unit) capsule lisinopril 10 mg PO QAM 10/31/19 10/31/19 metoprolol succinate 25 mg PO QAM 10/31/19 10/31/19 multivitamin 1 tab PO QAM 06/12/20 06/12/20 tramadol 50 mg PO TID PRN 10/31/19 10/31/19 Previous Rx's Medication Instructions Recorded misoprostol 200 mcg PO Q6H #120 tab 10/18/19 pantoprazole 40 mg PO BID 30 Days #60 tab 10/18/19 Results & Data (ED) Vital Signs Vital Signs - 24 hr 10/31/19 18:13 10/31/19 18:16 10/31/19 18:53 Temperature 37.8 C H Temperature Source Oral Pulse Rate 86 87 Pulse Rate from SpO2 Sensor Respiratory Rate 20 20 Respiratory Effort / Characteristics Non-Labored Respiratory Depth Normal Blood Pressure 131/77 131/77 Blood Pressure Mean 86 95 Pulse Oximetry 100 100 96 Oxygen Delivery Method Room Air Room Air Sepsis Recent Fever Within 48 Hours No Sepsis Action Taken by Nursing No Action Required 10/31/19 19:11 10/31/19 19:13 10/31/19 19:30 Temperature Temperature Source Pulse Rate 87 90 78 Pulse Rate from SpO2 Sensor Respiratory Rate 27 H 25 H 19 Respiratory Effort / Characteristics Respiratory Depth Blood Pressure 127/77 132/80 111/77 Blood Pressure Mean 87 96 82 Pulse Oximetry 100 98 97 Oxygen Delivery Method Sepsis Recent Fever Within 48 Hours Sepsis Action Taken by Nursing 10/31/19 20:00 10/31/19 20:30 Temperature Temperature Source Pulse Rate 91 H 83 Pulse Rate from SpO2 Sensor 77 Respiratory Rate 22 24 Respiratory Effort / Characteristics Respiratory Depth Blood Pressure 112/76 112/66 Blood Pressure Mean 93 69 Pulse Oximetry 97 99 Oxygen Delivery Method Sepsis Recent Fever Within 48 Hours Sepsis Action Taken by [facility] Medications Current Medication List: was personally reviewed by me Laboratory Data Attestation: I reviewed the patient's lab results. Result diagrams: 10/31/19 19:04 10/31/19 19:04 Lab Results 10/31/19 10/31/19 10/31/19 Range/Units 19:04 19:04 19:04 WBC 12.80 H (4.8-10.8) K/uL RBC 3.20 L (4.7-6.1) M/uL Hgb 8.1 L (14.0-18.0) g/dL Hct 26.8 L (42-52) % MCV 83.8 (80-100) fL MCH 25.3 (25-34) pg MCHC 30.2 L (32-36) g/dL RDW Std Deviation 50.6 H (36.4-46.3) fL RDW Coeff of Td 16.5 H (11.5-14.5) % Plt Count 403 H (130-400) K/uL MPV 8.9 (7.4-10.4) fL Immature Gran % (Auto) 0.5 % Neut % (Auto) 71.7 % Lymph % (Auto) 17.3 % Bacon % (Auto) 9.8 % Eos % (Auto) 0.4 % Baso % (Auto) 0.3 % Immature Gran # (Auto) 0.06 H (0.00-0.02) K/uL Neut # (Auto) 9.18 H (1.4-6.5) K/uL Lymph # (Auto) 2.21 (1.2-3.4) K/uL Bacon # (Auto) 1.26 H (0.11-0.59) K/uL Eos # (Auto) 0.05 (0-0.5) K/uL Baso # (Auto) 0.04 (0-0.2) K/uL PT Cancelled INR Cancelled APTT Cancelled PTT Ratio Cancelled Sodium (136-145) mmol/L Potassium (3.5-5.1) mmol/L Chloride (98-107) mmol/L Carbon Dioxide (21-32) mmol/L Anion Gap (3-11) BUN (7-18) mg/dl Creatinine (0.6-1.4) mg/dl Est Cr Clr Drug Dosing Est GFR ( Amer) Est GFR (Non-Af Amer) BUN/Creatinine Ratio (10-20) Glucose (70-99) mg/dl Calcium (8.5-10.1) mg/dl Total Bilirubin (0.2-1) mg/dl AST (15-37) U/L ALT (12-78) U/L Alkaline Phosphatase (45-117) U/L Troponin I (0-0.045) ng/ml Total Protein (6.4-8.2) gm/dl Albumin (3.4-5.0) gm/dl Globulin (2.5-4.0) gm/dl Albumin/Globulin Ratio (0.9-2) Hepatitis C Ab Screen (Neg) Blood Type O Positive Antibody Screen NEGATIVE Crossmatch See Detail 10/31/19 10/31/19 10/31/19 Range/Units 19:04 19:04 20:13 WBC (4.8-10.8) K/uL RBC (4.7-6.1) M/uL Hgb (14.0-18.0) g/dL Hct (42-52) % MCV (80-100) fL MCH (25-34) pg MCHC (32-36) g/dL RDW Std Deviation (36.4-46.3) fL RDW Coeff of Td (11.5-14.5) % Plt Count (130-400) K/uL MPV (7.4-10.4) fL Immature Gran % (Auto) % Neut % (Auto) % Lymph % (Auto) % Bacon % (Auto) % Eos % (Auto) % Baso % (Auto) % Immature Gran # (Auto) (0.00-0.02) K/uL Neut # (Auto) (1.4-6.5) K/uL Lymph # (Auto) (1.2-3.4) K/uL Bacon # (Auto) (0.11-0.59) K/uL Eos # (Auto) (0-0.5) K/uL Baso # (Auto) (0-0.2) K/uL PT 11.0 INR 1.0 APTT < 20.0 L PTT Ratio 0.7 Sodium 141 (136-145) mmol/L Potassium 4.1 (3.5-5.1) mmol/L Chloride 108 H (98-107) mmol/L Carbon Dioxide 27 (21-32) mmol/L Anion Gap 6.0 (3-11) BUN 29 H (7-18) mg/dl Creatinine 0.98 (0.6-1.4) mg/dl Est Cr Clr Drug Dosing Not Reportable Est GFR ( Amer) 90.8 Est GFR (Non-Af Amer) 78.4 BUN/Creatinine Ratio 29.8 H (10-20) Glucose 97 (70-99) mg/dl Calcium 8.7 (8.5-10.1) mg/dl Total Bilirubin 0.2 (0.2-1) mg/dl AST 17 (15-37) U/L ALT 28 (12-78) U/L Alkaline Phosphatase 120 H (45-117) U/L Troponin I < 0.015 (0-0.045) ng/ml Total Protein 6.3 L (6.4-8.2) gm/dl Albumin 3.1 L (3.4-5.0) gm/dl Globulin 3.2 (2.5-4.0) gm/dl Albumin/Globulin Ratio 1.0 (0.9-2) Hepatitis C Ab Screen Neg (Neg) Blood Type Antibody Screen Crossmatch Administered Medications Potassium Chloride/Sodium Chloride (Normal Saline W/20 Meq Kcl) 20 meq in 1,000 mls @ 80 mls/hr IV .[id number] ODILON Stop: 11/30/19 22:46 Last Admin: 11/01/19 00:33 Dose: 80 mls/hr Documented by: [id number] Ceftriaxone Sodium 2,000 mg/ (Dextrose) 70 mls @ 140 mls/hr IV Q24H ODILON Stop: 11/10/19 23:29 Last Infusion: 11/01/19 00:26 Dose: 0 mls/hr Documented by: [id number] Admin: 10/31/19 23:53 Dose: 140 mls/hr Documented by: [id number] Discontinued Medications Sodium Chloride (Nss 1000ml) 1,000 mls @ 100 mls/hr IV .Q10H ODILON Stop: 11/01/19 04:44 Last Infusion: 10/31/19 23:52 Dose: 0 mls/hr Documented by: [id number] Infusion: 10/31/19 22:04 Dose: 0 mls/hr Documented by: [id number] Admin: 10/31/19 19:18 Dose: 100 mls/hr Documented by: [id number] Pantoprazole Sodium (Protonix Bolus/Drip) 0 mls @ 1 mls/hr IV ONE STA Stop: 10/31/19 18:39 Last Admin: 10/31/19 19:13 Dose: Not Given Documented by: [id number] Pantoprazole Sodium 40 mg/ (Dextrose) 100 mls @ 20 mls/hr IV Q5H ODILON Stop: 11/30/19 18:54 Last Infusion: 10/31/19 23:52 Dose: 0 mg/hr, 0 mls/hr Documented by: [id number] Admin: 10/31/19 19:35 Dose: 8 mg/hr, 20 mls/hr Documented by: [id number] Pantoprazole Sodium 80 mg/ (Dextrose) 120 mls @ 400 mls/hr IV NOW ONE Stop: 10/31/19 18:55 Last Infusion: 10/31/19 19:31 Dose: 0 mls/hr Documented by: [id number] Admin: 10/31/19 19:13 Dose: 400 mls/hr Documented by: [id number] Ondansetron HCl (Zofran) 4 mg IV ONE STA Stop: 10/31/19 18:39 Last Admin: 10/31/19 19:13 Dose: 4 mg Documented by: [id number] Imaging Data Radiologist's Impression: XR chest 1V portable HISTORY: 69 years-old Male weakness, syncope acute weakness COMPARISON: Chest radiograph 01/22/2016 TECHNIQUE: Portable AP view of the chest FINDINGS: Cardiomediastinal and hilar silhouettes are unchanged. No pneumothorax, pleural effusion, airspace consolidation or overt pulmonary edema. Degenerative changes of the shoulders and spine. IMPRESSION: No acute process. Blood Pressure Blood Pressure Findings: Normal blood pressure Blood Pressure Disposition: further management by hospitalist Discharge Plan Visit Data *Final* Discharge Date/Time: 10/31/19 22:08 Chief Complaint: GI Assessment ED Provider: Melchor Baird Discharge Problem: Acute GI bleeding, Syncope, Anemia, Heme positive stool Patient Disposition: Admitted As Inpatient Condition: Good Discharge Instructions Interventions: ED Discharge Assessment Last Done: 10/31/19 22:08 Discharge Problem: Syncope Qualifiers: Syncope type: unspecified Qualified Code(s): R55 - Syncope and collapse Anemia Qualifiers: Anemia type: unspecified type Qualified Code(s): D64.9 - Anemia, unspecified
[2019-10-31] MEDS ORDERED: SODIUM CHLORIDE 0.9% 1000ML 1,000 ML IV SCH (18:45)
--- NOTE | 2019-10-31 18:52 | XRay Report ---
XR chest 1V portable HISTORY: 69 years-old Male weakness, syncope acute weakness COMPARISON: Chest radiograph 01/22/2016 TECHNIQUE: Portable AP view of the chest FINDINGS: Cardiomediastinal and hilar silhouettes are unchanged. No pneumothorax, pleural effusion, airspace co nsolidation or overt pulmonary edema. Degenerative changes of the shoulders and spine. IMPRESSION: No acute process. ACT 112: Negative or not required by law. The above report was generated using voice recognition software. It may contain grammatical, syntax o r spelling errors. Electronically signed by: Juan Conteh M.D. 10/31/2019 6:51 PM
[2019-10-31] MEDS ORDERED: PANTOprazole 40 MG in DEXTROSE 5% 100 ML IV SCH (18:55)
[2019-10-31 19:19] LABS: Basophils # (auto) 0.04 K/uL (0-0.2); Basophils % (auto) 0.3 %; Eosinophils # (auto) 0.05 K/uL (0-0.5); Eosinophils % (auto) 0.4 %; Hematocrit (blood only) 26.8 % (42-52); Hemoglobin 8.1 g/dL (14.0-18.0); Immature Granulocytes # (auto) 0.06 K/uL (0.00-0.02); Immature Granulocytes % (auto) 0.5 %; Lymphocytes # (auto) 2.21 K/uL (1.2-3.4); Lymphocytes % (auto) 17.3 %; Mean Corpuscular Hemoglobin 25.3 pg (25-34); Mean Corpuscular Hgb Conc 30.2 g/dL (32-36); Mean Corpuscular Volume 83.8 fL (80-100); Mean Platelet Volume 8.9 fL (7.4-10.4); Monocytes # (auto) 1.26 K/uL (0.11-0.59); Monocytes % (auto) 9.8 %; Neutrophils # (auto) 9.18 K/uL (1.4-6.5); Neutrophils % (auto) 71.7 %; Platelet Count 403 K/uL (130-400); RDW Coefficient of Variation 16.5 % (11.5-14.5); RDW Standard Deviation 50.6 fL (36.4-46.3)
[2019-10-31 19:36] LABS: Alanine Aminotransferase 28 U/L (12-78); Albumin Level 3.1 gm/dl (3.4-5.0); Aspartate Aminotransferase 17 U/L (15-37); BUN Creatinine Ratio 29.8 (10-20); Blood Urea Nitrogen 29 mg/dl (7-18); Calcium 8.7 mg/dl (8.5-10.1); Carbon Dioxide 27 mmol/L (21-32); Chloride 108 mmol/L (98-107); Est GFR (African American) 90.8; Est GFR (Non-African American) 78.4; Glucose 97 mg/dl (70-99); Potassium 4.1 mmol/L (3.5-5.1); Sodium 141 mmol/L (136-145)
[2019-10-31 19:41] LABS: Alkaline Phosphatase 120 U/L (45-117); Bilirubin,Total 0.2 mg/dl (0.2-1); Globulin 3.2 gm/dl (2.5-4.0); Total Protein 6.3 gm/dl (6.4-8.2); Troponin I < 0.015 ng/ml (0-0.045)
[2019-10-31 20:33] LABS: Partial Thromboplastin Ratio 0.7; Partial Thromboplastin Time < 20.0 Seconds (21.0-31.0)
[2019-10-31] MEDS ORDERED: cefTRIAXone SODIUM 1,000 MG in DEXTROSE 5% 50 ML IV SCH (21:00)
--- NOTE | 2019-10-31 21:03 | History & Physical Report ---
Date of Service October 31, 2019 Assessment & Plan (1) Acute GI bleeding: Recurrent acute upper GI bleeding/history jejunal ulcer- NPO NSS + KCl 20 mEq at 80 mils per hour. Type and screen H&H every 6 hours Protonix drip Zofran 4 mg IV every 6 hours as needed. Consult [facility] gastroenterology Present on Admission?: Yes (2) Jejunal ulcer: Noted on EGD on 10/16/2019. Present on Admission?: Yes (3) Syncope: Syncope/near syncope- Secondary to acute GI bleeding. Follow on telemetry Present on Admission?: Yes (4) Anemia: Serial H&H's as noted above. Present on Admission?: Yes (5) History of gastric bypass: EGD at last admission showed a jejunal ulcer near the anastomotic site Present on Admission?: Yes (6) Idiopathic peripheral neuropathy: Hold on tramadol p.o. Present on Admission?: Yes (7) Coronary artery disease: CAD/ischemic cardiomyopathy/hypertension- The patient will be admitted to telemetry for serial cardiac enzymes, serial EKG's, cardiac rhythm monitoring- Hold lisinopril and metoprolol tartrate. Present on Admission?: Yes (8) Hypertension: See above Present on Admission?: Yes History of Present Illness Chief Complaint: The patient presents to the emergency department with complaint of a near syncopal event after having a bowel movement earlier this evening. Primary Care Provider: ARELI Nicole The patient is a 69-year-old male with a past medical history including CAD, coronary artery stent, upper GI bleed, jejunal ulcer, syncope, history of gastric bypass, ischemic cardiomyopathy, dyslipidemia, idiopathic peripheral neuropathy, pancreatic neoplasm and hypertension. Patient reports that he had gone to the restroom due to abdominal pain, had a bowel movement that was very dark, and became dizzy, weak, nauseated and felt like he was going to pass out. He called his , who then called EMS, and he was brought to the emergency department for assessment. The patient had most recently been admitted to [facility] from 10/08-10/17 for upper GI bleeding. During that visit, he had an EGD performed on 10/16/2019 which showed nonbleeding jejunal ulcer, and was discharged on Protonix twice daily and misoprostol. He reports that his stools had normalized in the interim, until the bowel movement that he had today. He has continued to avoid NSAIDs as directed, and has been taking his medications as directed. He has not had any recent travels or sick exposures. Allergies Allergy/AdvReac Type Severity Reaction Status Date / Time atorvastatin Allergy Unknown . Verified 10/31/19 19:44 grass pollen Allergy Unknown . Verified 10/31/19 19:44 house dust Allergy Unknown . Verified 10/31/19 19:44 house dust mite Allergy Unknown . Verified 10/31/19 19:44 verapamil Allergy Unknown . Verified 10/31/19 19:44 Beta-Blockers Allergy . Verified 10/31/19 19:44 (Beta-Adrenergic Bloc Home Medications Home Medications Medication Instructions Recorded Confirmed Type misoprostol 200 mcg PO Q6H #120 tab 10/18/19 10/31/19 Rx pantoprazole 40 mg PO BID 30 Days #60 tab 10/18/19 10/31/19 Rx cholecalciferol (vitamin D3) 25 25 mcg PO QAM 10/23/19 10/31/19 History mcg (1,000 unit) capsule lisinopril 10 mg PO QAM 10/31/19 10/31/19 History metoprolol succinate 25 mg PO QAM 10/31/19 10/31/19 History multivitamin 1 tab PO QAM 10/31/19 10/31/19 History tramadol 50 mg PO TID PRN 10/31/19 10/31/19 History Past Med/Surg History Medical History Acute [place], inferior wall (Inactive) Acute [place], true posterior wall (Inactive) Adrenal myelolipoma (Resolved) Arthritis (Chronic) Coronary artery disease (Chronic) Hypertension (Chronic) Nephrolithiasis (Resolved) Presence of drug coated stent in posterior descending branch of right coronary artery (Resolved) Presence of drug coated stent in right coronary artery (Resolved) Renal cyst, acquired (Resolved) Surgical History History of cholecystectomy History of gastric bypass History of gastric surgery S/P cataract surgery Family History Father Prostate cancer Denies family history of Ovarian cancer Myocardial infarction Breast cancer Colorectal cancer Social History Preferred Language: Moldovan Communication Ability: Effective Epic Specialist Required: No Beliefs That Will Affect Care: None marital status: Current Living Situation: Spouse current occupational status: retired Other Information That Helps Us Care for You: No Feels Safe at Home: Yes Safety Concerns: Feels Safe At This Time Smoking Status: Current every day smoker Tobacco Type: cigars ; Cigarettes Per Day: 5 ; Second Hand Exposure: Yes ; Hx Alcohol Use: Yes Alcohol type: beer Alcohol Intake Frequency: Daily Hx Substance Use: No Dental Care, Regularly: No Seatbelt Use: always Review of Systems Review of Systems: The patient denies chest pain, palpitations, shortness of breath, dyspnea on exertion, cough, lower extremity swelling, sore throat, fevers, chills, sweats, fatigue, nausea, vomiting, blood in urine, dysuria, urinary frequency or urgency, headache, memory loss, loss of consciousness, rash, abnormal bruising or bleeding, imbalance, focal weakness, numbness or tingling in arms or legs, generalized arthralgias or myalgias, back or neck pain, or night sweats. The review of systems is otherwise negative other than for that already noted above, and at least 10 systems have been reviewed. Physical Exam Physical Exam: The patient is awake, alert and oriented 3, well developed and well nourished, normocephalic and atraumatic, lying in bed and in no acute distress. HEENT--PERRL, EOMI, mucous membranes and oropharynx dry. Neck--supple. No JVD. No bruits. Thyroid normal, trachea midline, no adenopathy. Heart--normal S1 and S2. No murmurs, rubs or gallops. Lungs--clear bilaterally, no respiratory distress, no accessory muscle use. Abdomen--normal bowel sounds and soft. Nontender. Nondistended. Extremities--no cyanosis or clubbing. No edema. Dermatologic--normal skin turgor. Looks pale. Neurologic--cranial nerves II through XII grossly intact. Rheumatologic--normal range of motion. Psychiatric--normal affect. Results & Data Results & Data ([facility]) Vital Signs (Past 12 Hours) Vital Signs Temp Pulse Resp BP Pulse Ox 10/31/19 20:00 91 H 22 112/76 97 10/31/19 19:30 78 19 111/77 97 10/31/19 19:13 90 25 H 132/80 98 10/31/19 19:11 87 27 H 127/77 100 10/31/19 18:53 96 10/31/19 18:16 100.0 F H 87 20 131/77 100 10/31/19 18:13 86 20 131/77 100 Laboratory Results Laboratory Results WBC 12.80 K/uL (4.8-10.8) H 10/31/19 19:04 RBC 3.20 M/uL (4.7-6.1) L 10/31/19 19:04 Hgb 8.1 g/dL (14.0-18.0) L 10/31/19 19:04 Hct 26.8 % (42-52) L 10/31/19 19:04 MCV 83.8 fL (80-100) 10/31/19 19:04 MCH 25.3 pg (25-34) 10/31/19 19:04 MCHC 30.2 g/dL (32-36) L 10/31/19 19:04 RDW Std Deviation 50.6 fL (36.4-46.3) H 10/31/19 19:04 RDW Coeff of Td 16.5 % (11.5-14.5) H 10/31/19 19:04 Plt Count 403 K/uL (130-400) H 10/31/19 19:04 MPV 8.9 fL (7.4-10.4) 10/31/19 19:04 Immature Gran % (Auto) 0.5 % 10/31/19 19:04 Neut % (Auto) 71.7 % 10/31/19 19:04 Lymph % (Auto) 17.3 % 10/31/19 19:04 [place] % (Auto) 9.8 % 10/31/19 19:04 Eos % (Auto) 0.4 % 10/31/19 19:04 Baso % (Auto) 0.3 % 10/31/19 19:04 Immature Gran # (Auto) 0.06 K/uL (0.00-0.02) H 10/31/19 19:04 Neut # (Auto) 9.18 K/uL (1.4-6.5) H 10/31/19 19:04 Lymph # (Auto) 2.21 K/uL (1.2-3.4) 10/31/19 19:04 [place] # (Auto) 1.26 K/uL (0.11-0.59) H 10/31/19 19:04 Eos # (Auto) 0.05 K/uL (0-0.5) 10/31/19 19:04 Baso # (Auto) 0.04 K/uL (0-0.2) 10/31/19 19:04 PT 11.0 Seconds (9.0-12.0) 10/31/19 20:13 INR 1.0 (0.9-1.1) 10/31/19 20:13 APTT < 20.0 Seconds (21.0-31.0) L 10/31/19 20:13 PTT Ratio 0.7 10/31/19 20:13 Sodium 141 mmol/L (136-145) 10/31/19 19:04 Potassium 4.1 mmol/L (3.5-5.1) 10/31/19 19:04 Chloride 108 mmol/L (98-107) H 10/31/19 19:04 Carbon Dioxide 27 mmol/L (21-32) 10/31/19 19:04 Anion Gap 6.0 (3-11) 10/31/19 19:04 BUN 29 mg/dl (7-18) H 10/31/19 19:04 Creatinine 0.98 mg/dl (0.6-1.4) 10/31/19 19:04 Est Cr Clr Drug Dosing Not Reportable 10/31/19 19:04 Est GFR ( Amer) 90.8 10/31/19 19:04 Est GFR (Non-Af Amer) 78.4 10/31/19 19:04 BUN/Creatinine Ratio 29.8 (10-20) H 10/31/19 19:04 Glucose 97 mg/dl (70-99) 10/31/19 19:04 Calcium 8.7 mg/dl (8.5-10.1) 10/31/19 19:04 Total Bilirubin 0.2 mg/dl (0.2-1) 10/31/19 19:04 AST 17 U/L (15-37) 10/31/19 19:04 ALT 28 U/L (12-78) 10/31/19 19:04 Alkaline Phosphatase 120 U/L (45-117) H 10/31/19 19:04 Troponin I < 0.015 ng/ml (0-0.045) 10/31/19 19:04 Total Protein 6.3 gm/dl (6.4-8.2) L 10/31/19 19:04 Albumin 3.1 gm/dl (3.4-5.0) L 10/31/19 19:04 Globulin 3.2 gm/dl (2.5-4.0) 10/31/19 19:04 Albumin/Globulin Ratio 1.0 (0.9-2) 10/31/19 19:04 Hepatitis C Ab Screen Neg (Neg) 10/31/19 19:04 Blood Type O Positive 10/31/19 19:04 Antibody Screen NEGATIVE 10/31/19 19:04 Crossmatch See Detail 10/31/19 19:04 Diagnostic Findings [place], [place] [phone] XRay Report Patient: CHRISTINA MILLER Date: 10/31/19 MR#: [id number]: [address] Acct ID:[id number]: [address] Date: [address] [place] [address] Zip: [place] [address] Age: 69Location: ED Sex: M Room/Bed: Att Phy:Diagnosis: ILLNESS [place]ham Phy: Marisabel Walker CRNPService Date: 10/31/19 Fam Phy:Interpreting Phy: Lorenzo Conteh Admit Phy: Ordering Phy: Melchor Baird M.D. cc: ~ XR chest 1V portable HISTORY: 69 years-old Male weakness, syncope acute weakness COMPARISON: Chest radiograph 01/22/2016 TECHNIQUE: Portable AP view of the chest FINDINGS: Cardiomediastinal and hilar silhouettes are unchanged. No pneumothorax, pleural effusion, airspace consolidation or overt pulmonary edema. Degenerative changes of the shoulders and spine. IMPRESSION: No acute process. ACT 112: Negative or not required by law. The above report was generated using voice recognition software. It may contain grammatical, syntax or spelling errors. Electronically signed by: Juan Conteh M.D. 10/31/2019 6:51 PM Dictated: 10/31/191849 Transcribed: 10/31/191849 Code Status & VTE Plan Code Status Full code VTE Prophylaxis Plan VTE Prophylaxis will be ordered: Yes PG Care Time/CCT Total # of Minutes Spent Total Time Spent with Patient: Total time spent is greater than 50% in coordination of care (as documented) at patient's floor/unit and/or counseling patient: Coding Level of Care Code 09812 Initial Inpt Care Lvl 3 Diagnoses Acute GI bleeding K92.2 Jejunal ulcer K28.9 Syncope R55 Syncope type: unspecified Anemia D64.9 Anemia type: unspecified type History of gastric bypass Z98.84 Idiopathic peripheral neuropathy G60.9 Coronary artery disease I25.10 Hypertension I10 (1) Syncope Syncope type: unspecified Qualified Code(s): R55 - Syncope and collapse (2) Anemia Anemia type: unspecified type Qualified Code(s): D64.9 - Anemia, unspecified
[2019-10-31] MEDS ORDERED: ONDANSETRON INJ 2 MG/ML 2 ML VIAL IV PRN (22:47)
[2019-10-31] MEDS ORDERED: ACETAMINOPHEN 1000 MG/100 ML IV IV PRN (22:47)
[2019-10-31] MEDS ORDERED: CEFTRIAXONE SODIUM IV SCH (23:00)
[2019-10-31] MEDS ORDERED: DEXTROSE 5% IV SCH (23:00)
[2019-10-31] MEDS ORDERED: cefTRIAXone SODIUM 2,000 MG in DEXTROSE 5% 50 ML IV SCH (23:30)
[2019-11-01] MEDS: NSS + 20MEQ KCL 20 MEQ/1,000 ML BAG IV SCH ×2 (00:33→12:51)
[2019-11-01 02:42] LABS: Basophils # (auto) 0.02 K/uL (0-0.2); Basophils % (auto) 0.2 %; Eosinophils # (auto) 0.07 K/uL (0-0.5); Eosinophils % (auto) 0.8 %; Hematocrit (blood only) 23.6 % (42-52); Hemoglobin 7.4 g/dL (14.0-18.0); Immature Granulocytes # (auto) 0.07 K/uL (0.00-0.02); Immature Granulocytes % (auto) 0.8 %; Lymphocytes # (auto) 1.95 K/uL (1.2-3.4); Lymphocytes % (auto) 22.4 %; Mean Corpuscular Hemoglobin 25.9 pg (25-34); Mean Corpuscular Hgb Conc 31.4 g/dL (32-36); Mean Corpuscular Volume 82.5 fL (80-100); Monocytes # (auto) 0.95 K/uL (0.11-0.59); Monocytes % (auto) 10.9 %; Neutrophils # (auto) 5.65 K/uL (1.4-6.5); Neutrophils % (auto) 64.9 %; Platelet Count 306 K/uL (130-400); RDW Coefficient of Variation 16.4 % (11.5-14.5); RDW Standard Deviation 49.6 fL (36.4-46.3); Red Blood Count 2.86 M/uL (4.7-6.1); White Blood Count 8.71 K/uL (4.8-10.8)
[2019-11-01 02:52] LABS: INR 1.1 (0.9-1.1); Partial Thromboplastin Ratio 0.8; Partial Thromboplastin Time 21.7 Seconds (21.0-31.0); Prothrombin Time 11.2 Seconds (9.0-12.0)
[2019-11-01 03:01] LABS: Albumin Level 2.6 gm/dl (3.4-5.0); BUN Creatinine Ratio 41.8 (10-20); Est GFR (African American) 106.2; Est GFR (Non-African American) 91.6; Potassium 4.3 mmol/L (3.5-5.1)
[2019-11-01 03:04] LABS: Albumin Globulin Ratio 0.9 (0.9-2); Bilirubin,Total 0.3 mg/dl (0.2-1); Globulin 2.8 gm/dl (2.5-4.0); Total Protein 5.4 gm/dl (6.4-8.2)
[2019-11-01 03:41] LABS: Basophilic Stippling 1+; Hypochromasia Present; Polychromasia 1+
--- NOTE | 2019-11-01 06:58 | Electrocardiogram Report ---
Test Reason : Blood Pressure : / mmHG Vent. Rate : 087 BPM Atrial Rate : 087 BPM P-R Int : 098 ms QRS Dur : 084 ms QT Int : 376 ms P-R-T Axes : 026 018 009 degrees QTc Int : 452 ms Sinus rhythm with short NH Nonspecific T wave abnormality Abnormal ECG When compared with ECG of 15-OCT-2019 05:25, Premature atrial complexes are no longer Present Minimal criteria for Inferior infarct are no longer Present Confirmed by Tahir Lind ([id number]) on 11/01/2019 6:58:37 AM Referred By: REFERRED SELF Confirmed By:Tahir Lind
--- NOTE | 2019-11-01 10:32 | Gastrointestinal Consultation ---
Date of Consultation November 01, 2019 Supervising Physician Co-Signing Physician Notes 69 yo male morbidly obese, s/p gastric bypass in the past, recent egd showing jejunal based ulcer (clean based), admitted through the ER with one dark stool, hgb of 7.4, slight bun rise. He does not want a repeat egd at this time and I don't think doing one would change his mgmt - unlikely therapeutic benefit with a repeat egd Would highly encourage IV PPI bid for next 24 hours, if no bleeding, then change to po bid. Would take misoprostol as prescribed as an outpatient while he is an inpatient. Discussed importance of smoking cessation as that is likely hindering healing of his ulcer. Trend hgb. If no bleeding today, consider liquids, slow advancement to solids pending clinical status. History of Present Illness Reason for Consultation: Dark stool Attending Physician: Melvin Soni DO History of Present Illness 69 yo morbidly obese male s/p gastric bypass, icm, cadz, hl, htn, admitted through the ER for reported dark stool. Recently here for ugi bleed from 10/08 to 10/17, findings on egd from 10/15 showing jejunal clean based ulcer - recommended to be on ppi bid and misoprostol. Not clear to me today if he did in fact take those medications. He denies any synocpe with his reported dark stool yesterday- no recent oral iron or pepto. He is tsmoking. Chest xray on admission, recent uti. He reports not further bleeding since he came in. He thinks his stools are dark from taking B 12. He has no complaints otherwise, does not want a repeat egd. He is aware of his hgb level. Allergies Allergy/AdvReac Type Severity Reaction Status Date / Time atorvastatin Allergy Unknown . Verified 10/31/19 19:44 grass pollen Allergy Unknown . Verified 10/31/19 19:44 house dust Allergy Unknown . Verified 10/31/19 19:44 house dust mite Allergy Unknown . Verified 10/31/19 19:44 verapamil Allergy Unknown . Verified 10/31/19 19:44 Beta-Blockers Allergy . Verified 10/31/19 19:44 (Beta-Adrenergic Bloc Home Medications Home Medications Medication Instructions Recorded Confirmed Type misoprostol 200 mcg PO Q6H #120 tab 10/18/19 10/31/19 Rx pantoprazole 40 mg PO BID 30 Days #60 tab 10/18/19 10/31/19 Rx cholecalciferol (vitamin D3) 25 25 mcg PO QAM 10/23/19 10/31/19 History mcg (1,000 unit) capsule lisinopril 10 mg PO QAM 10/31/19 10/31/19 History metoprolol succinate 25 mg PO QAM 10/31/19 10/31/19 History multivitamin 1 tab PO QAM 10/31/19 10/31/19 History tramadol 50 mg PO TID PRN 10/31/19 10/31/19 History Patient History Medical History (Updated 11/01/19 @ 01:22 by Nasir Pennington MD) Acute [place], inferior wall (Inactive) Acute [place], true posterior wall (Inactive) Adrenal myelolipoma (Resolved) Arthritis (Chronic) Coronary artery disease (Chronic) Hypertension (Chronic) Jejunal ulcer Nephrolithiasis (Resolved) Presence of drug coated stent in posterior descending branch of right coronary artery (Resolved) Presence of drug coated stent in right coronary artery (Resolved) Renal cyst, acquired (Resolved) Surgical History History of cholecystectomy History of gastric bypass History of gastric surgery S/P cataract surgery Family History Father Prostate cancer Denies family history of Ovarian cancer Myocardial infarction Breast cancer Colorectal cancer Social History Preferred Language: Cymraes Communication Ability: Effective Welt Insole Channeler Required: No Beliefs That Will Affect Care: None marital status: Current Living Situation: Spouse current occupational status: retired Other Information That Helps Us Care for You: No Feels Safe at Home: Yes Safety Concerns: Feels Safe At This Time Smoking Status: Current every day smoker Tobacco Type: cigars ; Cigarettes Per Day: 5 ; Second Hand Exposure: Yes ; Hx Alcohol Use: Yes Alcohol type: beer Alcohol Intake Frequency: Daily Hx Substance Use: No Dental Care, Regularly: No Seatbelt Use: always Review of Systems Review of Systems: All systems reviewed & are unremarkable except as noted in HPI & below Physical Exam Physical Exam: Obese male in nad Eyes: PERRL, conjunctivae normal, anicteric sclerae Respiratory: normal respiratory effort; no respiratory distress, no labored breathing and no retractions Gastrointestinal (Abdomen): normal bowel sounds, soft, nontender, no hepatosplenomegaly Skin: no rashes, warm and dry Results & Data ([facility]) Vital Signs (Past 12 Hours) Vital Signs Temp Pulse Pulse Resp BP BP BP 11/01/19 07:08 36.8 C 79 20 118/81 11/01/19 03:13 36.7 C 88 19 94/53 L 11/01/19 01:43 84 11/01/19 00:25 36.8 C 90 16 103/64 10/31/19 23:59 36.8 C 90 16 103/64 10/31/19 22:59 37.1 C 79 20 101/67 10/31/19 22:54 37.1 C 79 20 101/67 10/31/19 22:47 37.1 C 16 101/67 10/31/19 22:29 37.2 C 81 16 104/62 Pulse Ox 11/01/19 07:08 96 11/01/19 03:13 96 11/01/19 01:43 11/01/19 00:25 96 10/31/19 23:59 96 10/31/19 22:59 97 10/31/19 22:54 97 10/31/19 22:47 97 10/31/19 22:29 96 hgb 7.4/hct 23.6 bun is 33- has been around that range in the past. Cxray normal
[2019-11-01 12:07] LABS: Hematocrit (blood only) 22.9 % (42-52); Hemoglobin 6.9 g/dL (14.0-18.0)
[2019-11-01] MEDS ORDERED: SODIUM CHLORIDE 0.9% 250 ML IV PRN (12:32)
--- NOTE | 2019-11-01 12:34 | Hospitalist Progress Note ---
Date of Service November 01, 2019 Assessment & Plan (1) Jejunal ulcer: (2) Acute GI bleedinyoM with hx of CAD s/p stent placement, ischemic cardiomyopathy, HLD, HTN, recent upper GI bleed admission 10/08-10/17 with jejunal ulcer finding, gastric bypass history, pancreatic neoplasm and idiopathic neuropathy presented with pre-syncopal event in the setting of recurrent dark tarry stools. Pre-syncope 2/2 recurrent upper GI bleed HD stable Hgb down to 6.9 from 9 on 10/17 Received 2 u pRBC On protonix drip, zofran, IVF, NSS + KCL 20meq at 80cc/hr Continue home misoprostol GI consulted No EGD at this time; transition to liquid diet once no concern for bleeding and advised to quit smoking as it may slow healing Trend H/H If continues to decline despite transfusion will need EGD teresa Jejunal Ulcer and Hx of Gastric Bypass Noted on previous admission EGD on 10/15 near ulcer anastomosis site Anemia 2/2 UGI bleed Management as above Hx of CAD/Ischemic cardiomyopathy/HTN Hold home metoprolol and Lisinopril in the setting of acute GI bleed Idiopathic peripheral neuropathy Hold tramadol DVT prop: chemical contraindicated in the setting of acute bleeding Code: full Dispo: med/surg with telemetry (3) Anemia: (4) History of gastric bypass: (5) Cardiomyopathy, ischemic: (6) Idiopathic peripheral neuropathy: (7) Dyslipidemia: (8) Pancreatic neoplasm: (9) Hypertension: (10) Coronary artery disease: Admission and Anticipated Discharge Date Admission Date: October 31, 2019 Supervising Physician Co-Signing Physician Notes I personally examined the patient and verified all webster points of history and exam, discussed case, and agree with decision making with Dr Trimble. feeling ok had 1 unit transfused at admission. not on steroids, not on nsaids, had not resumed asa/plavix, was taking PPI and misoprostol vitals noted nad heent nc at mmm breathing unlabored no accessory muscles good effort skin no rashes no pallor or icterus neuro no focal deficits recurrent GI bleeding likely from anastomotic ulcer with acute blood loss anemia requiring thus far 2 units transfusion - concerning that he's rebleeding without clear provokation and that ulcer may not be healing well; at the same time is reasonably recent from initial dx. ongoing aggressive med management and transfusion support, if Hgb continues to drop will need to reconsider EGD but for now cautiously stable with med management. otherwise as above Subjective This AM pt reported developing abdominal cramps yesterday. He went to the bathroom then upon coming fell to the floor, felt nauseous, vomited and felt dizzy. He denies hitting his head. Then when he used the bathroom he had a dark tarry BM and his called EMS. This AM he reported feeling light headed only when sitting/moving. Denied any headache, sob, cp, abdominal pain, nausea, vomiting, dysuria and had not had a BM. Review of Systems Review of Systems: As per HPI Physical Exam Physical Exam: General: In NAD Neuro: A&O x 4 Pulm: CTAB equal breath sounds bilaterally CV: RRR, no m/r/g Abdomen:+BS, no TTP in all quadrants, non-distended LE: no LE edema, no calf TTP Results & Data Results & Data ([facility]) Vital Signs (Past 12 Hours) Vital Signs Temp Pulse Pulse Resp BP BP Pulse Ox 11/01/19 12:21 36.8 C 74 20 138/83 97 11/01/19 08:00 78 11/01/19 07:08 36.8 C 79 20 118/81 96 11/01/19 03:13 36.7 C 88 19 94/53 L 96 11/01/19 01:43 84 Resident Activity Tracking Resident Involvement: Resident Care Provided Care Provided: Adult Hospital Medicine (1) Anemia Anemia type: unspecified type Qualified Code(s): D64.9 - Anemia, unspecified
[2019-11-01] MEDS: PANTOprazole 40 MG in DEXTROSE 5% 100 ML IV SCH ×3 (13:48→23:22)
[2019-11-01] MEDS: miSOPROStoL 200 MCG TAB PO SCH ×2 (16:31→19:57)
[2019-11-01 16:59] LABS: Hematocrit (blood only) 25.8 % (42-52)
--- NOTE | 2019-11-01 18:01 | Billing Data ---
Date of Service November 01, 2019 Coding Level of Care Code 25145 Subseq Hosp Care Lvl 3
[2019-11-02] MEDS: PANTOprazole 40 MG in DEXTROSE 5% 100 ML IV SCH ×5 (05:15→23:15)
[2019-11-02] MEDS: NSS + 20MEQ KCL 20 MEQ/1,000 ML BAG IV SCH ×2 (05:15→17:44)
[2019-11-02 06:52] LABS: Basophils # (auto) 0.03 K/uL (0-0.2); Basophils % (auto) 0.5 %; Eosinophils # (auto) 0.11 K/uL (0-0.5); Eosinophils % (auto) 1.7 %; Hematocrit (blood only) 24.5 % (42-52); Hemoglobin 7.5 g/dL (14.0-18.0); Immature Granulocytes # (auto) 0.04 K/uL (0.00-0.02); Immature Granulocytes % (auto) 0.6 %; Lymphocytes # (auto) 1.77 K/uL (1.2-3.4); Mean Corpuscular Hemoglobin 25.5 pg (25-34); Mean Corpuscular Hgb Conc 30.6 g/dL (32-36); Mean Corpuscular Volume 83.3 fL (80-100); Mean Platelet Volume 8.6 fL (7.4-10.4); Monocytes # (auto) 0.55 K/uL (0.11-0.59); Monocytes % (auto) 8.7 %; Neutrophils # (auto) 3.82 K/uL (1.4-6.5); Neutrophils % (auto) 60.5 %; Platelet Count 226 K/uL (130-400); RDW Coefficient of Variation 16.5 % (11.5-14.5); RDW Standard Deviation 50.1 fL (36.4-46.3); Red Blood Count 2.94 M/uL (4.7-6.1); White Blood Count 6.32 K/uL (4.8-10.8)
[2019-11-02 07:33] LABS: Hypochromasia Present; Microcytosis Present
--- NOTE | 2019-11-02 09:11 | Gastroenterology Progress Note ---
Date of Service November 02, 2019 Assessment & Plan Admission and Anticipated Discharge Date Admission Date: October 31, 2019 Supervising Physician Co-Signing Physician Notes Continue IV PPI and misoprostol. No plans for an egd today given no active bleeding and patient is not wanting one at this time. Smoking cessation is highly encouraged. Subjective No melena reported On IV PPI and also misoprostol He still states in agreement with no scope Review of Systems Review of Systems: All systems reviewed & are unremarkable except as noted in HPI & below Physical Exam Physical Exam: Obese male in nad Eyes: PERRL, conjunctivae normal, anicteric sclerae Respiratory: normal respiratory effort; no respiratory distress, no labored breathing and no retractions Gastrointestinal (Abdomen): normal bowel sounds, soft, nontender, no hepatosplenomegaly Obese Skin: no rashes, warm and dry Results & Data ([facility]) Vital Signs (Past 12 Hours) Vital Signs Temp Pulse Pulse Resp BP BP Pulse Ox 11/02/19 07:23 36.6 C 64 19 126/76 99 11/02/19 04:13 36.8 C 76 20 127/80 96 11/02/19 02:12 82 11/01/19 23:15 36.7 C 75 20 138/77 97 Hgb 8 down to 7.5, hct 24.5, stable bun 33
[2019-11-02] MEDS: miSOPROStoL 200 MCG TAB PO SCH ×4 (09:29→20:08)
--- NOTE | 2019-11-02 11:32 | Hospitalist Progress Note ---
Date of Service November 02, 2019 Assessment & Plan (1) Jejunal ulcer: (2) Acute GI bleedinyoM with hx of CAD s/p stent placement, ischemic cardiomyopathy, HLD, HTN, recent upper GI bleed admission 10/08-10/17 with jejunal ulcer finding, gastric bypass history, pancreatic neoplasm and idiopathic neuropathy presented with Pre-syncopal event in the setting of recurrent upper GI bleed likely from jejunal ulcer noted on 10/15 EGD. Now with improving/stable Hgb s/p 2 units of pRBC transfusion. Transitioned to clears. Pre-syncope 2/2 recurrent upper GI bleed likely from jejunal ulcer HD stable Hgb down to 6.9 from 9 on 10/17 Received 2 u pRBC - improved to 8.5 On protonix drip, zofran, IVF - NSS + KCL 20meq at 80cc/hr Continue home misoprostol GI consulted No EGD at this time and advised to quit smoking as it may slow healing Jejunal Ulcer and Hx of Gastric Bypass Noted on previous admission EGD on 10/15 near ulcer anastomosis site Anemia 2/2 UGI bleed Management as above Hx of CAD/Ischemic cardiomyopathy/HTN Hold home metoprolol and Lisinopril in the setting of acute GI bleed Idiopathic peripheral neuropathy Hold tramadol Diet: clear liquid - if Hgb stable tomorrow transition DVT prop: chemical contraindicated in the setting of acute bleeding Code: full Dispo: med/surg with telemetry (3) Anemia: (4) History of gastric bypass: (5) Cardiomyopathy, ischemic: (6) Idiopathic peripheral neuropathy: (7) Dyslipidemia: (8) Pancreatic neoplasm: (9) Hypertension: (10) Coronary artery disease: Admission and Anticipated Discharge Date Admission Date: October 31, 2019 Supervising Physician Co-Signing Physician Notes I personally examined the patient and verified all webster points of history and exam, discussed case, and agree with decision making with Dr Trimble. no stomach pain no melena (actually no BM at all). Hgb noted - now appearing to be more stable after second unit. vitals noted nad heent nc at mmm breathing unlabored no accessory muscles good effort skin no rashes no pallor or icterus neuro no focal deficits recurrent GI bleeding likely from anastomotic ulcer with acute blood loss anemia requiring thus far 2 units transfusion - concerning that he's rebleeding without clear provokation and that ulcer may not be healing well; at the same time is reasonably recent from initial dx. protonix gtt for 72hrs again (would end around 2p 11/03), for now no repeat EGD but certainly if Hgb drops again would need to reconsider. prior ulcer was from steroids/NSAIDs for bursitis PLUS asa/plavix for CAD. currently has been on none of the above since prior bleed. plan eventually w CAD would be to resume plavix (this is obviously still on hold, but fortunately CAD has been stable and stent was on the order of about 4yrs ago) and then possibly asa vs just plavix depending on how he's doing and ongoing cardiology guidance. at this point with current bleeding situation obviously when he does eventually resume plavix would move very slowly to resume asa as well, if ever, just from bleeding standpoint. otherwise as above Subjective This AM pt reports improvement in dizziness and has been able to get out of bed and sit on chair. Denies any abdominal discomfort, nausea, vomiting. Has not had a BM since admission. Denies any fever, chills, headache, cp, sob, dysuria. Interval Hx: Continue to be on PPI drip and misoprostol with stable/improving Hgb of 8.5. No EGD planned at this time. Review of Systems Review of Systems: As per HPI Physical Exam Physical Exam: General: In NAD HEENT: moist oral mucosa Neuro: A&O x 4 Pulm: CTAB equal breath sounds bilaterally CV: RRR, no m/r/g, cap refill <2 secs Abdomen:+BS, no TTP in all quadrants, non-distended LE: no LE edema, no calf TTP Results & Data Results & Data ([facility]) Vital Signs (Past 12 Hours) Vital Signs Temp Pulse Pulse Resp BP BP Pulse Ox 11/02/19 08:00 69 11/02/19 07:23 36.6 C 64 19 126/76 99 11/02/19 04:13 36.8 C 76 20 127/80 96 11/02/19 02:12 82 Resident Activity Tracking Resident Involvement: Resident Care Provided Care Provided: Adult Hospital Medicine (1) Anemia Anemia type: unspecified type Qualified Code(s): D64.9 - Anemia, unspecified
[2019-11-02 12:06] LABS: Hematocrit (blood only) 27.3 % (42-52); Hemoglobin 8.5 g/dL (14.0-18.0)
--- NOTE | 2019-11-02 16:49 | Billing Data ---
Date of Service November 02, 2019 Coding Level of Care Code 64568 Subseq Hosp Care Lvl 3
[2019-11-03] MEDS: PANTOprazole 40 MG in DEXTROSE 5% 100 ML IV SCH ×4 (04:32→21:54)
[2019-11-03] MEDS: NSS + 20MEQ KCL 20 MEQ/1,000 ML BAG IV SCH ×2 (05:57→21:55)
[2019-11-03 06:45] LABS: Basophils # (auto) 0.03 K/uL (0-0.2); Basophils % (auto) 0.5 %; Eosinophils # (auto) 0.13 K/uL (0-0.5); Eosinophils % (auto) 2.2 %; Hemoglobin 8.2 g/dL (14.0-18.0); Immature Granulocytes # (auto) 0.04 K/uL (0.00-0.02); Immature Granulocytes % (auto) 0.7 %; Lymphocytes # (auto) 1.36 K/uL (1.2-3.4); Lymphocytes % (auto) 22.8 %; Mean Corpuscular Hemoglobin 26.2 pg (25-34); Mean Corpuscular Hgb Conc 31.5 g/dL (32-36); Mean Corpuscular Volume 83.1 fL (80-100); Mean Platelet Volume 8.9 fL (7.4-10.4); Monocytes # (auto) 0.59 K/uL (0.11-0.59); Monocytes % (auto) 9.9 %; Neutrophils # (auto) 3.82 K/uL (1.4-6.5); Neutrophils % (auto) 63.9 %; Platelet Count 248 K/uL (130-400); RDW Coefficient of Variation 16.3 % (11.5-14.5); RDW Standard Deviation 49.7 fL (36.4-46.3); Red Blood Count 3.13 M/uL (4.7-6.1); White Blood Count 5.97 K/uL (4.8-10.8)
[2019-11-03 07:36] LABS: BUN Creatinine Ratio 17.1 (10-20); Calcium 8.4 mg/dl (8.5-10.1); Creatinine Clr Calc Pharmacy 123.2 ml/min; Est GFR (African American) 106.7; Est GFR (Non-African American) 92.1; Potassium 3.7 mmol/L (3.5-5.1)
[2019-11-03] MEDS: miSOPROStoL 200 MCG TAB PO SCH ×4 (08:21→21:57)
--- NOTE | 2019-11-03 08:56 | Gastroenterology Progress Note ---
Date of Service November 03, 2019 Assessment & Plan (1) Jejunal ulcer: 69 year old male with continued dark stools, drop in HGB w/ known jejunal ulcer - he had a clear liquid breakfast this AM. Given continued dark stools, drop in HGB 10/31 requiring RBC transfusion, will plan for endoscopic evaluation 11/04/19 IV PPI BID Continue cytotec as ordered No NSAIDs Clear liquids today NPO after midnight for EGD 11/04/19 Trend HGB Monitor stools Transfuse per primary service Thank you for allowing us to participate in the care of this patient. Please call with any acute changes, questions or concerns. Please see addendum below with additional recommendation from my supervising physician. Attg add: I interviewed and examined pt, reviewed chart and labs. Pt with gasto-jej ulcer now with melena. He continnues to pass dark red stool with hgb drop. Plan EGD tomorrow. Admission and Anticipated Discharge Date Admission Date: October 31, 2019 Subjective Pt was seen and evaluated, chart reviewed. He is upright in bed currently eating breakfast. No abd pain No nausea, vomiting He is still reporting dark stools. Suggests he had a black stool this AM. Last documented is a red colored stool 11/01 Review of Systems Constitutional: no fever and no chills Respiratory: no cough and no dyspnea Cardiovascular: no chest pain and no dyspnea Gastrointestinal: + blood in stools and + melena; no abdominal pain and no nausea Physical Exam Constitutional: WD/WN, vitals as above Neck: trachea midline Respiratory: normal respiratory effort Cardiovascular: Rate/Rhythm: regular rate Results & Data ([facility]) Vital Signs (Past 12 Hours) Vital Signs Temp Pulse Pulse Resp BP BP Pulse Ox 11/03/19 07:23 36.8 C 70 18 128/80 100 11/03/19 04:13 69 11/03/19 03:55 36.7 C 65 20 144/72 H 96 11/02/19 22:43 36.8 C 75 20 147/81 H 97 Laboratory Results 11/03/19 11/03/19 11/02/19 Range/Units 06:31 06:31 11:57 WBC 5.97 (4.8-10.8) K/uL RBC 3.13 L (4.7-6.1) M/uL Hgb 8.2 L 8.5 L (14.0-18.0) g/dL Hct 26.0 L 27.3 L (42-52) % MCV 83.1 (80-100) fL MCH 26.2 (25-34) pg MCHC 31.5 L (32-36) g/dL RDW Std Deviation 49.7 H (36.4-46.3) fL RDW Coeff of Td 16.3 H (11.5-14.5) % Plt Count 248 (130-400) K/uL MPV 8.9 (7.4-10.4) fL Immature Gran % (Auto) 0.7 % Neut % (Auto) 63.9 % Lymph % (Auto) 22.8 % [place] % (Auto) 9.9 % Eos % (Auto) 2.2 % Baso % (Auto) 0.5 % Immature Gran # (Auto) 0.04 H (0.00-0.02) K/uL Neut # (Auto) 3.82 (1.4-6.5) K/uL Lymph # (Auto) 1.36 (1.2-3.4) K/uL [place] # (Auto) 0.59 (0.11-0.59) K/uL Eos # (Auto) 0.13 (0-0.5) K/uL Baso # (Auto) 0.03 (0-0.2) K/uL Sodium 140 (136-145) mmol/L Potassium 3.7 (3.5-5.1) mmol/L Chloride 109 H (98-107) mmol/L Carbon Dioxide 27 (21-32) mmol/L Anion Gap 4.0 (3-11) BUN 13 (7-18) mg/dl Creatinine 0.78 (0.6-1.4) mg/dl Est Cr Clr Drug Dosing 123.2 ml/min Est GFR ( Amer) 106.7 Est GFR (Non-Af Amer) 92.1 BUN/Creatinine Ratio 17.1 (10-20) Glucose 90 (70-99) mg/dl Calcium 8.4 L (8.5-10.1) mg/dl
--- NOTE | 2019-11-03 10:20 | Hospitalist Progress Note ---
Date of Service November 03, 2019 Assessment & Plan (1) Jejunal ulcer: (2) Acute GI bleedinyoM with hx of CAD s/p stent placement, ischemic cardiomyopathy, HLD, HTN, recent upper GI bleed admission 10/08-10/17 with jejunal ulcer finding, gastric bypass history, pancreatic neoplasm and idiopathic neuropathy presented with Pre-syncopal event in the setting of recurrent upper GI bleed likely from jejunal ulcer noted on 10/15 EGD. Now with improving/stable Hgb s/p 2 units of pRBC transfusion. Transitioned to clears. Pre-syncope 2/2 recurrent upper GI bleed likely from jejunal ulcer. s/p 2u pRBC transfusion. HD stable Hgb down to 6.9 -> 8.5 after transfusion On protonix drip, zofran, IVF - NSS + KCL 20meq at 80cc/hr Continue home misoprostol GI consulted: EGD 16 AM NPO @ midnight Pt pre-contemplative to stop smoking; smokes 5 cigars a day. Jejunal Ulcer and Hx of Gastric Bypass Noted on previous admission EGD on 10/15 near ulcer anastomosis site Anemia 2/2 UGI bleed Management as above Hx of CAD/Ischemic cardiomyopathy/HTN Hold home metoprolol and Lisinopril in the setting of acute GI bleed Idiopathic peripheral neuropathy Hold tramadol Diet: clear liquid DVT prop: chemical contraindicated in the setting of acute bleeding GI ppx: protonix drip. will flip to PO BID after EGD. Code: full Dispo: med/surg with telemetry (3) Anemia: (4) History of gastric bypass: (5) Cardiomyopathy, ischemic: (6) Idiopathic peripheral neuropathy: (7) Dyslipidemia: (8) Pancreatic neoplasm: (9) Hypertension: (10) Coronary artery disease: Admission and Anticipated Discharge Date Admission Date: October 31, 2019 Supervising Physician Co-Signing Physician Notes Patient seen and examined with PGY-1 Dr. Palomo. Agree with history, exam, assessment and plan of care as outlined by Dr. Palomo. In brief, Mr. Mcgregor is a 69 year old male with history of gastric bypass and recent upper GI bleed, CAD, and HTN admitted with upper GI bleed. Today, feels well. No complaints. Has continued to have dark, tarry stool. VS, labs and nursing notes reviewed. 1. upper GI bleed, prior bleed near anastomosis site, likely in the same place. Continue IV PPI and miso. EGD tomorrow with GI. 2. Anemia secondary to GI bleed. transfused 2 units PRBCs. hemoglobin today 8.2. 2. CAD, ischemic cardiomyopathy, HTN. Can restart home metoprolol and lisinopril now that BPs are increasing. 3. Tobacco use. Not ready to cut down or quit. Helps with light sensitivity/eye pain from prior eye surgeries. Dispo: pending clinical improvement Results & Data Results & Data ([facility]) Vital Signs (Past 12 Hours) Vital Signs Temp Pulse Pulse Resp BP BP Pulse Ox 11/03/19 07:23 36.8 C 70 18 128/80 100 11/03/19 04:13 69 11/03/19 03:55 36.7 C 65 20 144/72 H 96 11/02/19 22:43 36.8 C 75 20 147/81 H 97 Laboratory Results WBC 5.97 K/uL (4.8-10.8) 11/03/19 06:31 RBC 3.13 M/uL (4.7-6.1) L 11/03/19 06:31 Hgb 8.2 g/dL (14.0-18.0) L 11/03/19 06:31 Hct 26.0 % (42-52) L 11/03/19 06:31 MCV 83.1 fL (80-100) 11/03/19 06:31 MCH 26.2 pg (25-34) 11/03/19 06:31 MCHC 31.5 g/dL (32-36) L 11/03/19 06:31 RDW Std Deviation 49.7 fL (36.4-46.3) H 11/03/19 06:31 RDW Coeff of Td 16.3 % (11.5-14.5) H 11/03/19 06:31 Plt Count 248 K/uL (130-400) 11/03/19 06:31 MPV 8.9 fL (7.4-10.4) 11/03/19 06:31 Immature Gran % (Auto) 0.7 % 11/03/19 06:31 Neut % (Auto) 63.9 % 11/03/19 06:31 Lymph % (Auto) 22.8 % 11/03/19 06:31 [place] % (Auto) 9.9 % 11/03/19 06:31 Eos % (Auto) 2.2 % 11/03/19 06:31 Baso % (Auto) 0.5 % 11/03/19 06:31 Immature Gran # (Auto) 0.04 K/uL (0.00-0.02) H 11/03/19 06:31 Neut # (Auto) 3.82 K/uL (1.4-6.5) 11/03/19 06:31 Lymph # (Auto) 1.36 K/uL (1.2-3.4) 11/03/19 06:31 [place] # (Auto) 0.59 K/uL (0.11-0.59) 11/03/19 06:31 Eos # (Auto) 0.13 K/uL (0-0.5) 11/03/19 06:31 Baso # (Auto) 0.03 K/uL (0-0.2) 11/03/19 06:31 Polychromasia 1+ 11/01/19 02:06 Hypochromasia Present 11/02/19 06:32 Basophilic Stippling 1+ 11/01/19 02:06 Microcytosis Present 11/02/19 06:32 PT 11.2 Seconds (9.0-12.0) 11/01/19 02:06 INR 1.1 (0.9-1.1) 11/01/19 02:06 APTT 21.7 Seconds (21.0-31.0) 11/01/19 02:06 PTT Ratio 0.8 11/01/19 02:06 Sodium 140 mmol/L (136-145) 11/03/19 06:31 Potassium 3.7 mmol/L (3.5-5.1) 11/03/19 06:31 Chloride 109 mmol/L (98-107) H 11/03/19 06:31 Carbon Dioxide 27 mmol/L (21-32) 11/03/19 06:31 Anion Gap 4.0 (3-11) 11/03/19 06:31 BUN 13 mg/dl (7-18) 11/03/19 06:31 Creatinine 0.78 mg/dl (0.6-1.4) 11/03/19 06:31 Est Cr Clr Drug Dosing 123.2 ml/min 11/03/19 06:31 Est GFR ( Amer) 106.7 11/03/19 06:31 Est GFR (Non-Af Amer) 92.1 11/03/19 06:31 BUN/Creatinine Ratio 17.1 (10-20) 11/03/19 06:31 Glucose 90 mg/dl (70-99) 11/03/19 06:31 Calcium 8.4 mg/dl (8.5-10.1) L 11/03/19 06:31 Magnesium 2.0 mg/dl (1.8-2.4) 11/01/19 02:06 Total Bilirubin 0.3 mg/dl (0.2-1) 11/01/19 02:06 AST 10 U/L (15-37) L 11/01/19 02:06 ALT 22 U/L (12-78) 11/01/19 02:06 Alkaline Phosphatase 95 U/L (45-117) 11/01/19 02:06 Troponin I < 0.015 ng/ml (0-0.045) 11/01/19 02:06 Total Protein 5.4 gm/dl (6.4-8.2) L 11/01/19 02:06 Albumin 2.6 gm/dl (3.4-5.0) L 11/01/19 02:06 Globulin 2.8 gm/dl (2.5-4.0) 11/01/19 02:06 Albumin/Globulin Ratio 0.9 (0.9-2) 11/01/19 02:06 Hepatitis C Ab Screen Neg (Neg) 10/31/19 19:04 Blood Type O Positive 10/31/19 19:04 Antibody Screen NEGATIVE 10/31/19 19:04 Crossmatch See Detail 10/31/19 19:04 Resident Activity Tracking Resident Involvement: Resident Care Provided Care Provided: Adult Hospital Medicine (1) Anemia Anemia type: unspecified type Qualified Code(s): D64.9 - Anemia, unspecified
[2019-11-04] MEDS: PANTOprazole 40 MG in DEXTROSE 5% 100 ML IV SCH ×5 (01:38→22:06)
[2019-11-04] MEDS: NSS + 20MEQ KCL 20 MEQ/1,000 ML BAG IV SCH ×2 (01:39→20:49)
[2019-11-04 06:59] LABS: Basophils # (auto) 0.03 K/uL (0-0.2); Basophils % (auto) 0.5 %; Eosinophils # (auto) 0.14 K/uL (0-0.5); Eosinophils % (auto) 2.4 %; Hematocrit (blood only) 24.4 % (42-52); Hemoglobin 7.5 g/dL (14.0-18.0); Immature Granulocytes # (auto) 0.05 K/uL (0.00-0.02); Immature Granulocytes % (auto) 0.9 %; Lymphocytes # (auto) 1.18 K/uL (1.2-3.4); Lymphocytes % (auto) 20.4 %; Mean Corpuscular Hemoglobin 25.3 pg (25-34); Mean Corpuscular Hgb Conc 30.7 g/dL (32-36); Mean Corpuscular Volume 82.2 fL (80-100); Monocytes # (auto) 0.79 K/uL (0.11-0.59); Monocytes % (auto) 13.6 %; Neutrophils % (auto) 62.2 %; Platelet Count 238 K/uL (130-400); RDW Coefficient of Variation 16.4 % (11.5-14.5); RDW Standard Deviation 48.9 fL (36.4-46.3); Red Blood Count 2.97 M/uL (4.7-6.1); White Blood Count 5.79 K/uL (4.8-10.8)
[2019-11-04 07:43] LABS: Microcytosis Present
--- NOTE | 2019-11-04 08:15 | Gastroenterology Progress Note ---
Date of Service November 04, 2019 Assessment & Plan (1) Jejunal ulcer: 69 year old male with continued dark stools, drop in HGB w/ known jejunal ulcer - he had a clear liquid breakfast this AM. Given continued dark stools, drop in HGB 10/31 requiring RBC transfusion, will plan for endoscopic evaluation 11/04/19 NPO for EGD IV PPI BID Continue cytotec as ordered No NSAIDs Clear liquids today NPO after midnight for EGD 11/04/19 Trend HGB Monitor stools Transfuse per primary service Thank you for allowing us to participate in the care of this patient. Please call with any acute changes, questions or concerns. Please see addendum below with additional recommendation from my supervising physician. Attg add: Pt with dark stools, jejunal ulcer - plan EGD today Admission and Anticipated Discharge Date Admission Date: October 31, 2019 Subjective Pt was seen and evaluated, chart reviewed. No acute events overnight Slight downtrend HGB Last BM yesterday No abd pain No nausea, vomiting Review of Systems Constitutional: no fever and no chills Respiratory: no cough and no dyspnea Cardiovascular: no chest pain and no dyspnea Gastrointestinal: + blood in stools and + melena; no abdominal pain Physical Exam Constitutional: + morbidly obese; no acute distress Neck: trachea midline Respiratory: normal respiratory effort Cardiovascular: Rate/Rhythm: regular rate and regular rhythm Gastrointestinal (Abdomen): normal bowel sounds, soft, nontender, no hepatosplenomegaly Skin: no rashes, warm and dry Results & Data ([facility]) Vital Signs (Past 12 Hours) Vital Signs Temp Pulse Pulse Resp BP Pulse Ox 11/04/19 07:15 36.8 C 75 73 20 146/91 H 97 11/04/19 03:37 37.0 C 65 16 133/77 95 11/04/19 01:41 75 11/04/19 00:22 36.6 C 71 18 143/89 H 95 Laboratory Results 11/04/19 Range/Units 06:32 WBC 5.79 (4.8-10.8) K/uL RBC 2.97 L (4.7-6.1) M/uL Hgb 7.5 L (14.0-18.0) g/dL Hct 24.4 L (42-52) % MCV 82.2 (80-100) fL MCH 25.3 (25-34) pg MCHC 30.7 L (32-36) g/dL RDW Std Deviation 48.9 H (36.4-46.3) fL RDW Coeff of Td 16.4 H (11.5-14.5) % Plt Count 238 (130-400) K/uL MPV 9.0 (7.4-10.4) fL Immature Gran % (Auto) 0.9 % Neut % (Auto) 62.2 % Lymph % (Auto) 20.4 % [place] % (Auto) 13.6 % Eos % (Auto) 2.4 % Baso % (Auto) 0.5 % Immature Gran # (Auto) 0.05 H (0.00-0.02) K/uL Neut # (Auto) 3.60 (1.4-6.5) K/uL Lymph # (Auto) 1.18 L (1.2-3.4) K/uL [place] # (Auto) 0.79 H (0.11-0.59) K/uL Eos # (Auto) 0.14 (0-0.5) K/uL Baso # (Auto) 0.03 (0-0.2) K/uL Microcytosis Present
[2019-11-04] MEDS ORDERED: SODIUM CHLORIDE 0.9% 250 ML IV PRN (09:13)
--- NOTE | 2019-11-04 11:46 | History & Physical Report ---
Date of Service November 04, 2019 History of Present Illness Primary Care Provider: ARELI Nicole Upper GI bleed, h/o ulcer CV: RRR Resp: CTA Abd: soft A/P: GIB - EGD Allergies Allergy/AdvReac Type Severity Reaction Status Date / Time atorvastatin Allergy Unknown . Verified 10/31/19 19:44 grass pollen Allergy Unknown . Verified 10/31/19 19:44 house dust Allergy Unknown . Verified 10/31/19 19:44 house dust mite Allergy Unknown . Verified 10/31/19 19:44 verapamil Allergy Unknown . Verified 10/31/19 19:44 Beta-Blockers Allergy . Verified 10/31/19 19:44 (Beta-Adrenergic Bloc Home Medications Home Medications Medication Instructions Recorded Confirmed Type misoprostol 200 mcg PO Q6H #120 tab 10/18/19 10/31/19 Rx pantoprazole 40 mg PO BID 30 Days #60 tab 10/18/19 10/31/19 Rx cholecalciferol (vitamin D3) 25 25 mcg PO QAM 10/23/19 10/31/19 History mcg (1,000 unit) capsule lisinopril 10 mg PO QAM 10/31/19 10/31/19 History metoprolol succinate 25 mg PO QAM 10/31/19 10/31/19 History multivitamin 1 tab PO QAM 10/31/19 10/31/19 History tramadol 50 mg PO TID PRN 10/31/19 10/31/19 History Past Med/Surg History Medical History (Updated 11/01/19 @ 01:22 by Nasir Pennington MD) Acute CO, inferior wall (Inactive) Acute CO, true posterior wall (Inactive) Adrenal myelolipoma (Resolved) Arthritis (Chronic) Coronary artery disease (Chronic) Hypertension (Chronic) Jejunal ulcer Nephrolithiasis (Resolved) Presence of drug coated stent in posterior descending branch of right coronary artery (Resolved) Presence of drug coated stent in right coronary artery (Resolved) Renal cyst, acquired (Resolved) Surgical History History of cholecystectomy History of gastric bypass History of gastric surgery S/P cataract surgery Family History Father Prostate cancer Denies family history of Ovarian cancer Myocardial infarction Breast cancer Colorectal cancer Social History Preferred Language: [place] Communication Ability: Effective Glaze Carrier Required: No Beliefs That Will Affect Care: None marital status: Current Living Situation: Spouse current occupational status: retired Other Information That Helps Us Care for You: No Feels Safe at Home: Yes Safety Concerns: Feels Safe At This Time Smoking Status: Current every day smoker Tobacco Type: cigars ; Cigarettes Per Day: 5 ; Second Hand Exposure: Yes ; Hx Alcohol Use: Yes Alcohol type: beer Alcohol Intake Frequency: Daily Hx Substance Use: No Dental Care, Regularly: No Seatbelt Use: always Results & Data Vital Signs (Past 12 Hours) Vital Signs Temp Pulse Pulse Resp BP Pulse Ox 11/04/19 11:31 36.8 C 68 18 147/90 H 97 11/04/19 07:15 36.8 C 75 73 20 146/91 H 97 11/04/19 03:37 37.0 C 65 16 133/77 95 11/04/19 01:41 75 11/04/19 00:22 36.6 C 71 18 143/89 H 95 Code Status & VTE Plan VTE Prophylaxis Plan VTE Prophylaxis will be ordered: Yes
--- NOTE | 2019-11-04 11:48 | Anesthesiology Consultation ---
Date of Service November 04, 2019 Assessment & Plan ASA ASA4 Proposed Anesthesia Anesthesia Type: MAC Risk / Benefits Reviewed With: PT / POA / Parent / Guardian, Accepts Plan and Informed Consent Obtained History Surgery Operation Date: 11/04/19 15:30 Proposed Procedures p Esophagogastroduodenoscopy Dr Lupe Slater Height/Weight Height: 5 ft 9 in Weight: 137.7 kg Allergies Allergy/AdvReac Type Severity Reaction Status Date / Time atorvastatin Allergy Unknown . Verified 10/31/19 19:44 grass pollen Allergy Unknown . Verified 10/31/19 19:44 house dust Allergy Unknown . Verified 10/31/19 19:44 house dust mite Allergy Unknown . Verified 10/31/19 19:44 verapamil Allergy Unknown . Verified 10/31/19 19:44 Beta-Blockers Allergy . Verified 10/31/19 19:44 (Beta-Adrenergic Bloc Medications Home Medications Medication Instructions Recorded Confirmed Last Taken misoprostol 200 mcg PO Q6H #120 tab 10/18/19 10/31/19 10/31/19 13:30 pantoprazole 40 mg PO BID 30 Days #60 tab 10/18/19 10/31/19 10/31/19 AM DOSE cholecalciferol (vitamin D3) 25 25 mcg PO QAM 10/23/19 10/31/19 10/31/19 mcg (1,000 unit) capsule lisinopril 10 mg PO QAM 10/31/19 10/31/19 10/31/19 metoprolol succinate 25 mg PO QAM 10/31/19 10/31/19 10/31/19 multivitamin 1 tab PO QAM 10/31/19 10/31/19 10/31/19 tramadol 50 mg PO TID PRN 10/31/19 10/31/19 Unknown Active Medications Generic Name Dose Route Start Last Admin Trade Name Freq PRN Reason Stop Dose Admin Potassium Chloride/Sodium Chloride 20 meq in 1,000 mls @ 80 mls/hr 10/31/19 22:47 11/04/19 01:39 Normal Saline W/20 Meq Kcl IV 11/30/19 22:46 80 mls/hr .[id number] ODILON Administration Pantoprazole Sodium 40 mg/ 100 mls @ 20 mls/hr 11/01/19 13:00 11/04/19 06:10 Dextrose IV 12/01/19 12:59 8 mg/hr Q5H ODILON 20 mls/hr Administration 8 MG/HR Misoprostol 200 mcg 11/01/19 17:00 11/03/19 21:57 Cytotec PO 12/01/19 16:59 200 mcg QID ODILON Administration NPO Date Last Intake of Fluids: 11/03/19 Time Last Intake of Fluids: 21:00 Date Last Intake of Solids: 10/31/19 Time Last Intake of Solids: 18:00 Past Medical History Medical History Acute VA, inferior wall (Inactive) Acute VA, true posterior wall (Inactive) Adrenal myelolipoma (Resolved) Arthritis (Chronic) Coronary artery disease (Chronic) Hypertension (Chronic) Jejunal ulcer Nephrolithiasis (Resolved) Presence of drug coated stent in posterior descending branch of right coronary artery (Resolved) Presence of drug coated stent in right coronary artery (Resolved) Renal cyst, acquired (Resolved) Exercise / Class Metabolic Activity II 4-5 Yardwork/Stairs/Walk up hill Past Family History Family History Father Prostate cancer Denies family history of Ovarian cancer Myocardial infarction Breast cancer Colorectal cancer Past Surgical History Surgical History History of cholecystectomy History of gastric bypass History of gastric surgery S/P cataract surgery Past Anesthesia History No Hx of Anesthesia Complications and No Family Hx of Anesthesia Complications History of PONV No Hx of PONV and No Hx of Motion Sickness Social History Smoking Status: Current every day smoker tobacco type: cigars Smoking cigarettes per day: 5 Hx Alcohol Use: Yes Alcohol type: beer alcohol intake frequency: 0-2 drinks per day Hx Substance Use: No substance use type: does not use Review of Systems denies fever/cough/ colds/ chest pain/ SOB/ CHRISTOPHE Constitutional: no fever and no chills Respiratory: no cough and no dyspnea denies CHRISTOPHE Cardiovascular: no chest pain and no dyspnea on exertion Physical Exam Vital Signs Last Vital Signs Temp 36.8 C 11/04/19 11:31 Pulse 68 11/04/19 11:31 Resp 18 11/04/19 11:31 BP 147/90 H 11/04/19 11:31 Pulse Ox 97 11/04/19 11:31 ENMT Mouth: + edentulous; no TMJ abnormality and no dentition abnormality Thyromental Distance: > or= 3.5 Finger Breadths Mallampati Class: II Neck neck extension not limited Respiratory normal respiratory effort; no respiratory distress Auscultation: lungs clear to auscultation bilaterally Cardiovascular Rate/Rhythm: regular rate and regular rhythm Neurologic moves all extremities Psychiatric Orientation: alert and oriented x 3 Testing Laboratory Results 11/04/19 06:32 11/03/19 06:31 PT 11.2 Seconds (9.0-12.0) 11/01/19 02:06 INR 1.1 (0.9-1.1) 11/01/19 02:06 APTT 21.7 Seconds (21.0-31.0) 11/01/19 02:06 Blood Type O Positive 11/04/19 09:21 Antibody Screen NEGATIVE 11/04/19 09:21
[2019-11-04] MEDS ORDERED: LIDOCAINE HCL 2% 2 ML VIAL/AMP(20MG/ML) INFIL ONE (11:50)
[2019-11-04] MEDS ORDERED: PROPOFOL IV EMULSION 10 MG/ML 20 ML VIAL IV ONE (11:50)
[2019-11-04] MEDS ORDERED: EPINEPHrine INJ 1 MG/ML AMP ONE (12:21)
--- NOTE | 2019-11-04 12:33 | GI REPORT ---
Patient Name: Minda Mcgregor Procedure Date: 11/04/2019 11:50 AM Date of : 1950 Admit Type: Inpatient Age: 69 Gender: Male Attending MD: Jai Slater MD Procedure: Upper GI endoscopy Providers: Jai Slater MD Referring MD: Kristi Maria Indications: Melena Medicines: See the Anesthesia note for documentation of the administered medications Complications: No immediate complications. Estimated Blood Loss: Estimated blood loss: none. Procedure: Pre-Anesthesia Assessment: - ASA Grade Assessment: IV - A patient with severe systemic disease that is a constant threat to life. After obtaining informed consent, the endoscope was passed under direct vision. Throughout the procedure, the patient's blood pressure, pulse, and oxygen saturations were monitored continuously. The Endoscope was introduced through the mouth, and advanced to the afferent jejunal loop. The upper GI endoscopy was accomplished without difficulty. The patient tolerated the procedure well. Findings: The examined esophagus was normal. There was evidence of a prior gastric bypass. 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 The scope was advanced through the fistula. The excluded portion of the stomach and the duodenal bulb were normal; there was bilious fluid in the stomach and duodenum. There was a gastroenteric anastamosis. There was a cratered ulcer at the gastroenteric anastamosis. The base of the ulcer was mildly nodular and plaque like; this was thought to be granulation tissue. The ulcer base was friable, with mild contact oozing. There were no high risk stigmata was seen. There was mild narrowing of the anastamosis. The jejunum was normal. Recommendation: - Discharge patient to floor. Remain on clears and continue IV BID PPI, oral cytotec and carafate. Follow hgb. Repeat EGD 4 weeks for healing. Hold ASA and Plavix for now, but plan to resume ASA if hgb stable x 48 hours. Jai Slater M.D. Jai Slater MD 11/04/2019 12:33:02 PM This report has been signed electronically. Note Initiated On: 11/04/2019 11:50 AM Number of Addenda: 0 I attest to the content of the Intraoperative Record and orders documented therein, exceptions below {[id number]}
[2019-11-04] MEDS: miSOPROStoL 200 MCG TAB PO SCH ×4 (13:00→20:50)
--- NOTE | 2019-11-04 13:02 | Hospitalist Consultation ---
Date of Consultation November 04, 2019 Assessment & Plan (1) Jejunal ulcer: (2) Acute GI bleedinyoM with hx of CAD s/p stent placement, ischemic cardiomyopathy, HLD, HTN, recent upper GI bleed admission 10/08-10/17 with jejunal ulcer finding, gastric bypass history, pancreatic neoplasm and idiopathic neuropathy presented with Pre-syncopal event in the setting of recurrent upper GI bleed likely from jejunal ulcer noted on 10/15 EGD. Now with improving/stable Hgb s/p 2 units of pRBC transfusion. Transitioned to clears. Pre-syncope 2/2 recurrent upper GI bleed likely from jejunal ulcer. s/p 2u pRBC transfusion. HD stable Hgb down to 6.9 -> 8.5 after transfusion On protonix drip, zofran, IVF - NSS + KCL 20meq at 80cc/hr Continue home misoprostol GI consulted: EGD 16 AM NPO @ midnight Pt pre-contemplative to stop smoking; smokes 5 cigars a day. Jejunal Ulcer and Hx of Gastric Bypass Noted on previous admission EGD on 10/15 near ulcer anastomosis site Anemia 2/2 UGI bleed Management as above Hx of CAD/Ischemic cardiomyopathy/HTN Hold home metoprolol and Lisinopril in the setting of acute GI bleed Idiopathic peripheral neuropathy Hold tramadol Diet: clear liquid DVT prop: chemical contraindicated in the setting of acute bleeding GI ppx: protonix drip. will flip to PO BID after EGD. Code: full Dispo: med/surg with telemetry (3) Anemia: (4) History of gastric bypass: (5) Cardiomyopathy, ischemic: (6) Idiopathic peripheral neuropathy: (7) Dyslipidemia: (8) Pancreatic neoplasm: (9) Hypertension: (10) Coronary artery disease: History of Present Illness Attending Physician: Kristi Maria DO Allergies Allergy/AdvReac Type Severity Reaction Status Date / Time atorvastatin Allergy Unknown . Verified 10/31/19 19:44 grass pollen Allergy Unknown . Verified 10/31/19 19:44 house dust Allergy Unknown . Verified 10/31/19 19:44 house dust mite Allergy Unknown . Verified 10/31/19 19:44 verapamil Allergy Unknown . Verified 10/31/19 19:44 Beta-Blockers Allergy . Verified 10/31/19 19:44 (Beta-Adrenergic Bloc Home Medications Home Medications Medication Instructions Recorded Confirmed Type misoprostol 200 mcg PO Q6H #120 tab 10/18/19 10/31/19 Rx pantoprazole 40 mg PO BID 30 Days #60 tab 10/18/19 10/31/19 Rx cholecalciferol (vitamin D3) 25 25 mcg PO QAM 10/23/19 10/31/19 History mcg (1,000 unit) capsule lisinopril 10 mg PO QAM 10/31/19 10/31/19 History metoprolol succinate 25 mg PO QAM 10/31/19 10/31/19 History multivitamin 1 tab PO QAM 10/31/19 10/31/19 History tramadol 50 mg PO TID PRN 10/31/19 10/31/19 History Patient History Medical History Acute [place], inferior wall (Inactive) Acute [place], true posterior wall (Inactive) Adrenal myelolipoma (Resolved) Arthritis (Chronic) Coronary artery disease (Chronic) Hypertension (Chronic) Jejunal ulcer Nephrolithiasis (Resolved) Presence of drug coated stent in posterior descending branch of right coronary artery (Resolved) Presence of drug coated stent in right coronary artery (Resolved) Renal cyst, acquired (Resolved) Surgical History History of cholecystectomy History of gastric bypass History of gastric surgery S/P cataract surgery Family History Father Prostate cancer Denies family history of Ovarian cancer Myocardial infarction Breast cancer Colorectal cancer Social History Preferred Language: Estonian Communication Ability: Effective Stem Lead Former Required: No Beliefs That Will Affect Care: None marital status: Current Living Situation: Spouse current occupational status: retired Other Information That Helps Us Care for You: No Feels Safe at Home: Yes Safety Concerns: Feels Safe At This Time Smoking Status: Current every day smoker Tobacco Type: cigars ; Cigarettes Per Day: 5 ; Second Hand Exposure: Yes ; Hx Alcohol Use: Yes Alcohol type: beer Alcohol Intake Frequency: Daily Hx Substance Use: No Dental Care, Regularly: No Seatbelt Use: always Results & Data Results & Data ([facility]) Vital Signs (Past 12 Hours) Vital Signs Temp Pulse Pulse Resp BP Pulse Ox 11/04/19 12:48 82 14 156/99 H 100 11/04/19 12:33 74 18 152/92 H 100 11/04/19 12:18 94 H 18 131/83 100 11/04/19 11:31 36.8 C 68 18 147/90 H 97 11/04/19 07:15 36.8 C 75 73 20 146/91 H 97 11/04/19 03:37 37.0 C 65 16 133/77 95 11/04/19 01:41 75 (1) Anemia Anemia type: unspecified type Qualified Code(s): D64.9 - Anemia, unspecified
--- NOTE | 2019-11-04 13:10 | Anesthesiology Progress Note ---
Date of Service November 04, 2019 Anesthesia Post Procedure Vital Signs Vital Signs: Temp Pulse Pulse Resp BP Pulse Ox 11/04/19 12:48 82 14 156/99 H 100 11/04/19 12:33 74 18 152/92 H 100 11/04/19 12:18 94 H 18 131/83 100 11/04/19 11:31 36.8 C 68 18 147/90 H 97 11/04/19 07:15 36.8 C 75 73 20 146/91 H 97 11/04/19 03:37 37.0 C 65 16 133/77 95 11/04/19 01:41 75 11/04/19 00:22 36.6 C 71 18 143/89 H 95 11/03/19 20:00 37.1 C 73 18 138/86 97 11/03/19 18:39 79 157/96 H 11/03/19 17:48 36.4 C L 107 H 22 170/80 H 90 11/03/19 16:00 68 11/03/19 15:47 36.5 C 92 H 20 169/95 H 95 Pain Intensity Right Ribs: Pain Intensity: 3 Transfer of Care Handoff Completed per policy Notes Mental Status: alert / awake / arousable and participated in evaluation Patient Amnestic to Procedure: Yes Nausea / Vomiting: adequately controlled Pain: adequately controlled Airway Patency, RR, SpO2: stable & adequate BP & HR: stable & adequate Hydration State: stable & adequate Anesthetic Complications: no major complications apparent and Pt Satisfied with anesthetic care
--- NOTE | 2019-11-04 14:30 | Hospitalist Progress Note ---
Date of Service November 04, 2019 Assessment & Plan (1) Jejunal ulcer: (2) Acute GI bleedinyoM with hx of CAD s/p stent placement, ischemic cardiomyopathy, HLD, HTN, recent upper GI bleed admission 10/08-10/17 with jejunal ulcer finding, gastric bypass history, pancreatic neoplasm and idiopathic neuropathy presented with Pre-syncopal event in the setting of recurrent upper GI bleed likely from jejunal ulcer noted on 10/15 EGD. Now with improving/stable Hgb s/p 2 units of pRBC transfusion. Transitioned to clears. Pre-syncope 2/2 recurrent upper GI bleed likely from jejunal ulcer. s/p 2u pRBC transfusion. HD stable Hgb down to 7.5 this AM; 2u pRBC re-ordered for transfusion prior to EGD On protonix drip, zofran, IVF - NSS + KCL 20meq at 80cc/hr Continue home misoprostol EGD today: cratered ulcer at gastric bypass anastamosis with granulation tissue. base of ulcer friable with mild contact oozing. no high risk stigmata. - recommended repeat EGD in 4 weeks for proper healing. Continue IV PPI, plus oral carafate and cytotec. Pt pre-contemplative to stop smoking; smokes 5 cigars a day. Jejunal Ulcer and Hx of Gastric Bypass Noted on previous admission EGD on 10/15 near ulcer anastomosis site Anemia 2/2 UGI bleed Management as above Hx of CAD/Ischemic cardiomyopathy/HTN Holding metoprolol in setting of acute GIB. Restarting lisinopril today given elevated blood pressures. Idiopathic peripheral neuropathy Hold tramadol Diet: clear liquid DVT prop: chemical contraindicated in the setting of acute bleeding GI ppx: protonix drip. will flip to PO BID on discharge. Code: full Dispo: home pending GI sign off (3) Anemia: (4) History of gastric bypass: (5) Cardiomyopathy, ischemic: (6) Idiopathic peripheral neuropathy: (7) Dyslipidemia: (8) Pancreatic neoplasm: (9) Hypertension: (10) Coronary artery disease: Admission and Anticipated Discharge Date Admission Date: October 31, 2019 Supervising Physician Co-Signing Physician Notes Patient seen and examined with PGY-1 Dr. Palomo. Agree with history, exam, assessment and plan of care as outlined by Dr. Palomo. In brief, Mr. Mcgregor is a 69 year old male with history of gastric bypass and recent upper GI bleed, CAD, and HTN admitted with upper GI bleed. Today, feels well. No complaints. He had already been seen by anesthesia. Reports that stool were no longer black and tarry. Denies nausea, vomiting. VS, labs and nursing notes reviewed. Abd soft nontender. 1. upper GI bleed, prior bleed near anastomosis site, likely in the same place. EGD today showed ulcer at the gastroenteric anastomosis; ulcer base is friable with mild contact oozing. Continue IV PPI, miso, and carafate. 2. Anemia secondary to GI bleed. Transfused 2 units PRBCs on admission; hgb 7.5 today and will transfuse another 2 units (given CAD history). 2. CAD, ischemic cardiomyopathy, HTN. Restarted lisinopril 10mg, still holding home metoprolol XL 25mg. 3. Tobacco use. Not ready to cut down or quit. Helps with light sensitivity/eye pain from prior eye surgeries. Dispo: If no further bleeding, hemoglobin stable and tolerating clears; hopeful for discharge tomorrow. Subjective No complaints this morning. Denies any abdominal pain, burning, discomfort. States stools are less melanotic today. Review of Systems Constitutional: no fever, no chills, no body aches and no fatigue Respiratory: no cough and no dyspnea Cardiovascular: no chest pain, no dyspnea and no edema Gastrointestinal: no abdominal pain, no nausea, no vomiting, no constipation and no diarrhea/loose stools Physical Exam Constitutional: cooperative; no acute distress and not ill appearing Neck: normal visual inspection Respiratory: normal respiratory effort and able to speak in complete sentences; no respiratory distress, no labored breathing, no retractions, no cough and no audible wheezes Auscultation: lungs clear to auscultation bilaterally; no crackles, no rales, no rhonchi and no wheezes Cardiovascular: Rate/Rhythm: regular rate and regular rhythm Heart Sounds: normal S1 and normal S2; no gallop, no murmur and no cardiac rub Vessels: posterior tibial pulses present Extremities: no pedal edema and no edema Gastrointestinal (Abdomen): Inspection/Auscultation: abdomen normal to inspection, normal bowel sounds and + significant pannus; abdomen not distended Percussion/Palpation: abdomen soft; abdomen nontender, no guarding, abdomen not rigid and no abdominal mass Results & Data Results & Data ([facility]) Vital Signs (Past 12 Hours) Vital Signs Temp Pulse Pulse Resp BP Pulse Ox 11/04/19 13:44 36.7 C 74 20 134/84 97 11/04/19 12:48 82 14 156/99 H 100 11/04/19 12:33 74 18 152/92 H 100 11/04/19 12:18 94 H 18 131/83 100 11/04/19 11:31 36.8 C 68 18 147/90 H 97 11/04/19 07:15 36.8 C 75 73 20 146/91 H 97 11/04/19 03:37 37.0 C 65 16 133/77 95 Laboratory Results WBC 5.79 K/uL (4.8-10.8) 11/04/19 06:32 RBC 2.97 M/uL (4.7-6.1) L 11/04/19 06:32 Hgb 7.5 g/dL (14.0-18.0) L 11/04/19 06:32 Hct 24.4 % (42-52) L 11/04/19 06:32 MCV 82.2 fL (80-100) 11/04/19 06:32 MCH 25.3 pg (25-34) 11/04/19 06:32 MCHC 30.7 g/dL (32-36) L 11/04/19 06:32 RDW Std Deviation 48.9 fL (36.4-46.3) H 11/04/19 06:32 RDW Coeff of Td 16.4 % (11.5-14.5) H 11/04/19 06:32 Plt Count 238 K/uL (130-400) 11/04/19 06:32 MPV 9.0 fL (7.4-10.4) 11/04/19 06:32 Immature Gran % (Auto) 0.9 % 11/04/19 06:32 Neut % (Auto) 62.2 % 11/04/19 06:32 Lymph % (Auto) 20.4 % 11/04/19 06:32 Benson % (Auto) 13.6 % 11/04/19 06:32 Eos % (Auto) 2.4 % 11/04/19 06:32 Baso % (Auto) 0.5 % 11/04/19 06:32 Immature Gran # (Auto) 0.05 K/uL (0.00-0.02) H 11/04/19 06:32 Neut # (Auto) 3.60 K/uL (1.4-6.5) 11/04/19 06:32 Lymph # (Auto) 1.18 K/uL (1.2-3.4) L 11/04/19 06:32 Benson # (Auto) 0.79 K/uL (0.11-0.59) H 11/04/19 06:32 Eos # (Auto) 0.14 K/uL (0-0.5) 11/04/19 06:32 Baso # (Auto) 0.03 K/uL (0-0.2) 11/04/19 06:32 Polychromasia 1+ 11/01/19 02:06 Hypochromasia Present 11/02/19 06:32 Basophilic Stippling 1+ 11/01/19 02:06 Microcytosis Present 11/04/19 06:32 PT 11.2 Seconds (9.0-12.0) 11/01/19 02:06 INR 1.1 (0.9-1.1) 11/01/19 02:06 APTT 21.7 Seconds (21.0-31.0) 11/01/19 02:06 PTT Ratio 0.8 11/01/19 02:06 Sodium 140 mmol/L (136-145) 11/03/19 06:31 Potassium 3.7 mmol/L (3.5-5.1) 11/03/19 06:31 Chloride 109 mmol/L (98-107) H 11/03/19 06:31 Carbon Dioxide 27 mmol/L (21-32) 11/03/19 06:31 Anion Gap 4.0 (3-11) 11/03/19 06:31 BUN 13 mg/dl (7-18) 11/03/19 06:31 Creatinine 0.78 mg/dl (0.6-1.4) 11/03/19 06:31 Est Cr Clr Drug Dosing 123.2 ml/min 11/03/19 06:31 Est GFR ( Amer) 106.7 11/03/19 06:31 Est GFR (Non-Af Amer) 92.1 11/03/19 06:31 BUN/Creatinine Ratio 17.1 (10-20) 11/03/19 06:31 Glucose 90 mg/dl (70-99) 11/03/19 06:31 Calcium 8.4 mg/dl (8.5-10.1) L 11/03/19 06:31 Magnesium 2.0 mg/dl (1.8-2.4) 11/01/19 02:06 Total Bilirubin 0.3 mg/dl (0.2-1) 11/01/19 02:06 AST 10 U/L (15-37) L 11/01/19 02:06 ALT 22 U/L (12-78) 11/01/19 02:06 Alkaline Phosphatase 95 U/L (45-117) 11/01/19 02:06 Troponin I < 0.015 ng/ml (0-0.045) 11/01/19 02:06 Total Protein 5.4 gm/dl (6.4-8.2) L 11/01/19 02:06 Albumin 2.6 gm/dl (3.4-5.0) L 11/01/19 02:06 Globulin 2.8 gm/dl (2.5-4.0) 11/01/19 02:06 Albumin/Globulin Ratio 0.9 (0.9-2) 11/01/19 02:06 Hepatitis C Ab Screen Neg (Neg) 10/31/19 19:04 Blood Type O Positive 11/04/19 09:21 Antibody Screen NEGATIVE 11/04/19 09:21 Crossmatch See Detail 11/04/19 09:21 Resident Activity Tracking Resident Involvement: Resident Care Provided Care Provided: Adult Hospital Medicine (1) Anemia Anemia type: unspecified type Qualified Code(s): D64.9 - Anemia, unspecified
[2019-11-04] MEDS: SUCRALFATE 1 GM/10 ML UDC PO SCH ×2 (16:54→20:50)
[2019-11-04] MEDS: lisinopriL 10 MG TAB PO SCH (18:38)
[2019-11-04 21:23] LABS: Hematocrit (blood only) 31.2 % (42-52); Hemoglobin 9.5 g/dL (14.0-18.0)
[2019-11-05] MEDS: PANTOprazole 40 MG in DEXTROSE 5% 100 ML IV SCH ×2 (05:00→11:40)
[2019-11-05 06:58] LABS: Hematocrit (blood only) 30.2 % (42-52); Hemoglobin 9.4 g/dL (14.0-18.0); Mean Corpuscular Hemoglobin 26.2 pg (25-34); Mean Corpuscular Hgb Conc 31.1 g/dL (32-36); Mean Corpuscular Volume 84.1 fL (80-100); Mean Platelet Volume 9.3 fL (7.4-10.4); Platelet Count 247 K/uL (130-400); RDW Coefficient of Variation 16.1 % (11.5-14.5); RDW Standard Deviation 49.2 fL (36.4-46.3); Red Blood Count 3.59 M/uL (4.7-6.1); White Blood Count 5.65 K/uL (4.8-10.8)
[2019-11-05 07:24] LABS: BUN Creatinine Ratio 7.2 (10-20); Calcium 8.3 mg/dl (8.5-10.1); Creatinine Clr Calc Pharmacy 129.8 ml/min; Est GFR (African American) 109.1; Est GFR (Non-African American) 94.1; Potassium 3.6 mmol/L (3.5-5.1)
--- NOTE | 2019-11-05 08:13 | Anesthesiology Progress Note ---
Date of Service November 05, 2019 Anesthesia Post Procedure Vital Signs Vital Signs: Temp Pulse Pulse Resp BP BP BP 11/05/19 07:22 63 11/05/19 07:19 68 18 132/85 11/05/19 04:00 37.0 C 78 18 134/84 11/05/19 00:18 67 11/05/19 00:06 37.0 C 71 18 123/74 11/04/19 20:48 36.8 C 65 18 171/89 H 11/04/19 20:00 36.7 C 68 18 149/92 H 11/04/19 19:14 36.8 C 71 18 160/91 H 11/04/19 18:44 36.7 C 72 18 159/80 H 11/04/19 18:29 36.7 C 73 18 160/79 H 11/04/19 18:10 36.5 C 72 18 164/79 H 11/04/19 17:58 64 11/04/19 16:58 36.5 C 63 18 157/89 H 11/04/19 16:00 36.9 C 66 18 160/87 H 11/04/19 15:30 36.9 C 68 18 152/90 H 11/04/19 15:00 36.7 C 75 18 149/90 H 11/04/19 14:45 36.9 C 72 18 154/84 H 11/04/19 14:28 36.7 C 70 18 164/90 H 11/04/19 13:44 36.7 C 74 20 134/84 11/04/19 12:48 82 14 156/99 H 11/04/19 12:33 74 18 152/92 H 11/04/19 12:18 94 H 18 131/83 11/04/19 11:31 36.8 C 68 18 147/90 H Pulse Ox 11/05/19 07:22 11/05/19 07:19 95 11/05/19 04:00 96 11/05/19 00:18 11/05/19 00:06 95 11/04/19 20:48 98 11/04/19 20:00 97 11/04/19 19:14 97 11/04/19 18:44 98 11/04/19 18:29 97 11/04/19 18:10 97 11/04/19 17:58 11/04/19 16:58 99 11/04/19 16:00 11/04/19 15:30 99 11/04/19 15:00 98 11/04/19 14:45 96 11/04/19 14:28 97 11/04/19 13:44 97 11/04/19 12:48 100 11/04/19 12:33 100 11/04/19 12:18 100 11/04/19 11:31 97 Pain Intensity Right Ribs: Pain Intensity: 0 Notes Mental Status: alert / awake / arousable and participated in evaluation Patient Amnestic to Procedure: Yes Nausea / Vomiting: adequately controlled Pain: adequately controlled Airway Patency, RR, SpO2: stable & adequate BP & HR: stable & adequate Hydration State: stable & adequate Anesthetic Complications: no major complications apparent
[2019-11-05] MEDS: lisinopriL 10 MG TAB PO SCH (08:30)
[2019-11-05] MEDS: SUCRALFATE 1 GM/10 ML UDC PO SCH ×2 (08:30→11:40)
[2019-11-05] MEDS: miSOPROStoL 200 MCG TAB PO SCH (08:30)
[2019-11-05] MEDS ORDERED: PANTOprazole 40 MG TAB PO SCH (09:00)
--- NOTE | 2019-11-05 09:55 | Discharge Summary ---
Date of Service November 05, 2019 Admission HPI Per Admitting Provider The patient is a 69-year-old male with a past medical history including CAD, coronary artery stent, upper GI bleed, jejunal ulcer, syncope, history of gastric bypass, ischemic cardiomyopathy, dyslipidemia, idiopathic peripheral neuropathy, pancreatic neoplasm and hypertension. Patient reports that he had gone to the restroom due to abdominal pain, had a bowel movement that was very dark, and became dizzy, weak, nauseated and felt like he was going to pass out. He called his , who then called EMS, and he was brought to the emergency department for assessment. [facility] bleeding. During that visit, he had an EGD performed on 10/16/2019 which showed nonbleeding jejunal ulcer, and was discharged on Protonix twice daily and misoprostol. He reports that his stools had normalized in the interim, until the bowel movement that he had today. He has continued to avoid NSAIDs as directed, and has been taking his medications as directed. He has not had any recent travels or sick exposures. Admission Exam Per Admitting Provider The patient is awake, alert and oriented 3, well developed and well nourished, normocephalic and atraumatic, lying in bed and in no acute distress. HEENT--PERRL, EOMI, mucous membranes and oropharynx dry. Neck--supple. No JVD. No bruits. Thyroid normal, trachea midline, no adenopathy. Heart--normal S1 and S2. No murmurs, rubs or gallops. Lungs--clear bilaterally, no respiratory distress, no accessory muscle use. Abdomen--normal bowel sounds and soft. Nontender. Nondistended. Extremities--no cyanosis or clubbing. No edema. Dermatologic--normal skin turgor. Looks pale. Neurologic--cranial nerves II through XII grossly intact. Rheumatologic--normal range of motion. Psychiatric--normal affect. Principal Diagnosis jejunal ulcer, upper GI bleed Discharge Exam Constitutional: cooperative; no acute distress and not ill appearing Neck: normal visual inspection Respiratory: normal respiratory effort and able to speak in complete sentences; no respiratory distress, no labored breathing, no retractions, no cough and no audible wheezes Auscultation: lungs clear to auscultation bilaterally; no crackles, no rales, no rhonchi and no wheezes Cardiovascular: Rate/Rhythm: regular rate and regular rhythm Heart Sounds: normal S1 and normal S2; no gallop, no murmur and no cardiac rub Vessels: posterior tibial pulses present Extremities: no pedal edema and no edema Gastrointestinal (Abdomen): Inspection/Auscultation: abdomen normal to inspection, normal bowel sounds and + significant pannus; abdomen not distended Percussion/Palpation: abdomen soft; abdomen nontender, no guarding, abdomen not rigid and no abdominal mass Discharge Data Allergies Allergy/AdvReac Type Severity Reaction Status Date / Time atorvastatin Allergy Unknown . Verified 10/31/19 19:44 grass pollen Allergy Unknown . Verified 10/31/19 19:44 house dust Allergy Unknown . Verified 10/31/19 19:44 house dust mite Allergy Unknown . Verified 10/31/19 19:44 verapamil Allergy Unknown . Verified 10/31/19 19:44 Beta-Blockers Allergy . Verified 10/31/19 19:44 (Beta-Adrenergic Bloc Consultations 10/31/19 19:42 ED Decision to Admit Stat 10/31/19 22:47 Consult Case Management - Discharge Planning Routine 11/01/19 08:17 Consult Gastroenterology Routine Procedures Performed Operation Date: 11/04/19 15:30 Actual Procedures p Esophagogastroduodenoscopy - [facility] Course (1) Jejunal ulcer: (2) Acute GI bleedinyoM with hx of CAD s/p stent placement, ischemic cardiomyopathy, HLD, HTN, recent upper GI bleed admission 10/08-10/17 with jejunal ulcer finding, gastric bypass history, pancreatic neoplasm and idiopathic neuropathy presented with pre-syncopal event in the setting of recurrent upper GI bleed and melanotic stools. 1) Recurrent upper GI bleed from jejunal ulcer, s/p 4u pRBC transfusion: EGD showing cratered ulcer at gastric bypass anastamosis with granulation tissue. base of ulcer friable with mild contact oozing. no high risk stigmata, no intervention during EGD. Recommended repeat EGD in 4 weeks for follow up on healing ulcer. Attempted to discuss smoking cessation with patient in regards to prevention of future bleeding episodes and ability to heal from the current one, but he is firmly pre-contemplative at this time. Currently smoking 5 cigars per day. Asymptomatic anemia with Hg 9.4 at discharge. Discharged with GI regimen of Pantoprazole 40 mg BID, Misoprostol 200 mcg QID, Sucralfate 1 gm daily. 2) HTN: lisinopril and metoprolol initially held on admission; lisinopril restarted after EGD procedure. Blood pressures were within normal range with heart rates in the 60's - 80's, so metoprolol not restarted at this time. Advised patient to follow up with PCP regarding restarting beta-medardo under guidance so as to avoid hypotension or bradycardia. All other medical conditions managed per home regimens. (3) Anemia: (4) History of gastric bypass: (5) Cardiomyopathy, ischemic: (6) Idiopathic peripheral neuropathy: (7) Dyslipidemia: (8) Pancreatic neoplasm: (9) Hypertension: (10) Coronary artery disease: Total Time Total Time Spent Total Time Spent (In Minutes): Discharge Plan Discharge Items Patient Disposition: Home - Self-Care Reason For Visit: UGI BLEED Discharge Diagnosis: jejunal ulcer, upper GI bleed Condition on Discharge: Good Activity: Resume your previous activity Non-emergency contact: Primary Care Provider Call non-emergency contact if: you have any medication questions and your symptoms worsen Follow-up/Referrals: Marisabel Walker CRNP [Primary Care Provider] - 11/13/19 10:30 am (If you need to change this appointment, please call your primary care office.) Diet: Heart Healthy Addtl Attending Provider Instructions: You were evaluated in the hospital for dizziness found to be secondary to bleeding in your upper GI tract from an ulcer by your gastric bypass anastomosis. EGD in the hospital showed this ulcer to be friable and easily agitated into bleeding, but not actively oozing. Gastroenterology recommends doing a repeat EGD in 4 weeks to ensure proper healing of the ulcer. We discussed that smaller food portion may aid in preventing repeat episodes of these bleeds, as well as cutting back on your tobacco use. New medications: - sucralfate 1 gram at bedtime Held/Stopped medications: discuss restarting these with your PCP at your hospital follow up visit - metoprolol succinate 25 mg - tramadol Pending Studies at Discharge: No Stand-Alone Forms: My [facility], Smoking Cessation Medications and DC Order Prescriptions: New sucralfate 1 gram tablet 1 gm PO ACHS 30 Days Qty: 30 RF: 0 Continued cholecalciferol (vitamin D3) 25 mcg (1,000 unit) capsule 25 mcg PO QAM RF: 0 misoprostol 200 mcg tablet 200 mcg PO Q6H Qty: 120 RF: 0 pantoprazole 40 mg tablet,delayed release (DR/EC) 40 mg PO BID 30 Days Qty: 60 RF: 0 multivitamin Tablet 1 tab PO QAM RF: 0 lisinopril 10 mg tablet 10 mg PO QAM RF: 0 Discontinued tramadol 50 mg tablet 50 mg PO TID PRN (Reason: Pain) RF: 0 metoprolol succinate 25 mg tablet extended release 24 hr 25 mg PO QAM RF: 0 Discharge Orders: Discharge Order (Routine); Ordered 11/05/19 Ordered By: Samara Palomo Admission Data Admit Date/Time: 10/31/19 20:50 Attending Provider: Kristi Maria Admit Provider: Nasir Pennington Primary Care Provider: Marisabel Walker Other Providers: Nasir Pennington ; Lillie Modi ; Samara Palomo Other Interventions: Discharge Summary Assessment (RN) Last Done: 11/05/19 10:20 Supervising Physician Co-Signing Physician Notes Patient seen and examined with PGY-1 Dr. Palomo. Agree with history, exam, assessment and plan of care as outlined by Dr. Palomo. In brief, Mr. Mcgregor is a 69 year old male with history of gastric bypass and recent upper GI bleed, CAD, and HTN admitted with upper GI bleed. Today, feels well. No complaints. Reports that stool color is back to normal, denies tarry stools. Denies nausea, vomiting. VS, labs and nursing notes reviewed. Abd soft nontender. 1. upper GI bleed, prior bleed near anastomosis site. EGD today showed ulcer at the gastroenteric anastomosis; ulcer base is friable with mild contact oozing. Discharge on protonix BID, miso, and carafate. 2. Anemia secondary to GI bleed. Transfused 2 units PRBCs on admission; hgb 7.5 today and will transfuse another 2 units (given CAD history) and hgb now 9.4. 2. CAD, ischemic cardiomyopathy, HTN. Restarted lisinopril 10mg, still holding home metoprolol XL 25mg on discharge. 3. Tobacco use. Not ready to cut down or quit. Helps with light sensitivity/eye pain from prior eye surgeries. Dispo: discharge home today. I personally spent 25 minutes discharge planning for this patient. Resident Activity Tracking Resident Involvement: Resident Care Provided Care Provided: Adult [facility]
[2019-11-05] MEDS: NSS + 20MEQ KCL 20 MEQ/1,000 ML BAG IV SCH (10:25)
== END 2019-11-05 12:36 | disposition home or self-care (01) ==
LOC: ED 18:04 → 2N 20:46 → SUATTDRO 20:46 → INTOOBSV 20:50 → SUATTDRO 20:50 → 2N 22:08

== ENCOUNTER 2023-11-17 11:30 | Inpatient (IN) ==
--- NOTE | 2023-11-17 12:03 | Emergency Department Note ---
Impression & Plan Fever, Acute UTI, Leukocytosis, History of kidney stones ED Provider Note NAME: CHRISTINA MILLER AGE: 73 SEX: M : 1950 ARRIVES VIA: Walk-In INFORMANT: [Patient][family] ED PROVIDER(S): [Melchor Baird MD] CHIEF COMPLAINT: DrMaria De Jesus Referred HISTORY OF PRESENT ILLNESS: The patient is a 73-year-old male who went to urgent care earlier today and was sent to our ER for further workup. There was concern for UTI and bacteremia. The patient states that yesterday, he had a fever and some shakes and was weak. He had not noted any cough or congestion or shortness of breath. The patient states that a few days ago, he had pain in the right flank and then, passed what he thinks was a kidney stone. No right flank pain ever since. The fever and other symptoms started after passing the stone. The patient has not had vomiting although his appetite has been decreased. He has a history of UTI and is on Macrobid daily for prevention. PMHx/PSHx/Social Hx: See Below PHYSICAL EXAM: GENERAL: Patient is in no acute distress. HEENT: No acute trauma, normocephalic atraumatic, mucous membranes moist, no nasal congestion. NECK: No stridor, no adenopathy, no meningismus, trachea is midline. LUNGS: Clear to auscultation bilaterally when listening anterior, no wheeze, no rhonchi, breath sounds equal. HEART: Mildly tachycardic with a slightly irregular rhythm, no obvious murmur. ABDOMEN: Soft, nontender, no peritonitis. Obese. EXTREMITIES: No cyanosis, full range of motion of all the joints without pain or difficulty. Mild bilateral pedal edema. NEUROLOGIC: Oriented x 3, no acute motor or sensory deficits, no focal weakness. SKIN: No jaundice, no diaphoresis. Groin: The patient has a large pannus over the groin. No evidence for erythema or infection. There is no scrotal erythema or any other sign for infection. DIFFERENTIAL DIAGNOSIS: Pyelonephritis, renal colic, hydronephrosis, UTI, bacteremia or sepsis, renal failure, among others. EMERGENCY DEPARTMENT PROCEDURES: MEDICAL DECISION MAKING: There is a mild leukocytosis, this would be consistent with infection. There is a normal hemoglobin and platelet count. No renal failure. No coagulopathy. No electrolyte abnormality in need of emergent correction. Lactic acid level was not elevated making severe sepsis less likely. No worrisome liver enzyme elevation. The patient appeared to be in a euthyroid state. Urinalysis does show findings of infection. Chest film does not show CHF or pneumonia. Abdominal and pelvis CT does not show any evidence for ureteral obstruction or acute surgical process. No bowel obstruction. The patient received IV saline for hydration. He received IV cefepime as antibiotic coverage. The patient presents with a fever. He has a history of UTI and appears to have a UTI by workup. By his report, he very likely passed a ureteral stone/kidney stone prior to the onset of fever. Given the patient's history, given his findings, given the concern for early sepsis or bacteremia, I do think a hospital stay is warranted. I spoke with the patient and case management, the on-call hospitalist was consulted. Prior/Outside records/notes reviewed: Today's outpatient note describing his presentation and the need for an ER referral. ECG per my interpretation: Indication was possible sepsis. The ECG shows a sinus rhythm with PACs. The rate is 97. There is no acute ST elevation. There is some poor R wave progression. No PVCs. The QTc is 454. Continuous Cardiac Monitoring per my interpretation: An order was placed for continuous cardiac monitoring. The monitor shows a rate of 104 with sinus tachycardia. Imaging/x-ray results per my interpretation: Chest x-ray shows a poor inspiratory effort but no focal infiltrate. No CHF. Chronic Medical/Social conditions affecting care: Advanced age, history of recurrent UTI Care/Management discussed with: Case management, the on-call hospitalist. Level of care consideration(s): After review of the information above and other included data: --I believe the patient requires escalation of care to admission DISPOSITION: Admission Past Med/Surg History Problem List History of kidney stones (Acute) Leukocytosis (Acute) Acute UTI (Acute) Fever (Acute) Tobacco abuse HFrEF (heart failure with reduced ejection fraction) UTI (urinary tract infection) Abnormal CT scan, bladder Sepsis Arthralgia Neck pain without injury Muscle spasms of lower extremity Recurrent UTI Decreased urine output Irregular heart rate Thoracic back pain Hypertension History of gastric surgery Pancreatic neoplasm (Acute) declines futher w/u, imaging Idiopathic peripheral neuropathy (Chronic) Dyslipidemia (Chronic) Cardiomyopathy, ischemic (Acute) Osteoarthritis of left hip Anemia (Chronic) Greater trochanteric bursitis Lumbar back pain with radiculopathy affecting left lower extremity Statin myopathy (Acute) Morbid obesity Trochanteric bursitis, right hip Medical History Vision problem SINCE EYE SX, VISION FLUCTUATES - WITH TOO MUCH LIGHT HAVE TROUBLE READING History of colon polyps History of IA (myocardial infarction) 2 YR AGO Acute GI bleeding HX Nephrolithiasis HX Coronary artery disease Arthritis Surgical History History of radial keratotomy Hx of LASIK History of colonoscopy H/O heart artery stent History of gastric bypass S/P cataract surgery History of cholecystectomy Family History Father Prostate cancer Skin cancer Son Family history of Crohn's disease Family/Other Hypertension Denies family history of Ovarian cancer Myocardial infarction Breast cancer Colorectal cancer Social History Smoking Status: Current every day smoker Tobacco Type: Cigars Age Started Using Tobacco: 28; Cigarettes Per Day: 5 cigars; Second Hand Exposure: Yes; Do You Dip or Chew Tobacco: No; Hx Alcohol Use: Yes Alcohol type: beer Alcohol Intake Frequency: 4 or More x per/Week Hx Substance Use: No Preferred Language: [place] Communication Ability: Effective Visual Impairment: Limited Hearing Ability: Normal 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 Beliefs That Will Affect Care: None marital status: Current Living Situation: Spouse current occupational status: retired How many Children do You have: 2 Feels Safe at Home: Yes Safety Concerns: Feels Safe At This Time Childhood Exposure to Second-Hand Smoke: No Diet: Soft and regular caffeine: Yes during the past year weight has: remained stable Dental Care, Regularly: No Physical Activity Frequency: Does not Exercise Seatbelt Use: sometimes Sunscreen Use: No Assistive Devices: Cane, Glasses and Walker Allergies Allergies Allergy/AdvReac Type Severity Reaction Status Date / Time ampicillin Allergy Severe Rash on Unverified 11/17/23 13:23 face/forehead/swelling Beta-Blockers Allergy Unknown "COULDN'T Verified 11/17/23 13:22 (Beta-Adrenergic Bloc BARELY MOVE" grass pollen Allergy Unknown SNEEZING, Verified 11/17/23 13:22 ITCHY EYES house dust Allergy Unknown SNEEZING, Verified 11/17/23 13:22 ITCHY EYES house dust mite Allergy Unknown SNEEZING, Verified 11/17/23 13:22 ITCHY EYES atorvastatin AdvReac Unknown Myalgia Verified 11/17/23 13:22 verapamil AdvReac Unknown LOWERED Verified 11/17/23 13:22 PULSE RATE TO 20-30 ? Home Meds Home Medications Medication Instructions Recorded Confirmed magnesium 250 mg tablet 250 mg PO QAM 05/24/20 11/17/23 cholecalciferol (vitamin D3) 50 50 mcg PO DAILY 09/20/22 11/17/23 mcg (2,000 unit) capsule acetaminophen 500 mg/15 mL oral 500 mg PO QID PRN pain/fever 09/07/23 11/17/23 liquid cranberry extract 200 mg capsule 400 mg PO DAILY 09/07/23 11/17/23 lisinopril 10 mg tablet See Rx Instructions .Route .COMPLEX 11/17/23 11/17/23 lisinopril 20 mg tablet See Rx Instructions .Route .COMPLEX 11/17/23 11/17/23 nitrofurantoin 100 mg PO DAILY 11/17/23 11/17/23 monohydrate/macrocrystals 100 mg capsule potassium chloride 10 mEq 10 meq PO DAILY muscle spasticity 11/17/23 11/17/23 tablet,extended release (Klor-Con) Previous Rx's Medication Instructions Recorded clopidogrel 75 mg tablet (Plavix) 75 mg PO DAILY #90 tabs 05/18/23 metoprolol succinate 25 mg 25 mg PO DAILY #90 tabs 05/18/23 tablet,extended release 24 hr tamsulosin 0.4 mg capsule 0.4 mg PO DAILY #90 caps 09/05/23 apixaban 5 mg tablet (Eliquis) 5 mg PO BID #60 tabs 11/01/23 Results & Data (ED) Vital Signs Vital Signs - 24 hr 11/17/23 11:30 11/17/23 11:40 11/17/23 11:56 Temperature 37.5 C Temperature Source Temporal Artery Scan Pulse Rate 109 H 104 H Pulse Rhythm Regular Pulse Strength Normal Respiratory Rate 16 Respiratory Effort / Characteristics Non-Labored Respiratory Depth Normal Respiratory Pattern Regular Blood Pressure 162/93 H Blood Pressure Mean 116 Blood Pressure Position Sitting Pulse Oximetry 94 Oxygen Delivery Method Room Air Room Air Sepsis Recent Fever Within 48 Hours Yes Sepsis New/Unexplained Change in Mental Status N/A Sepsis Action Taken by Nursing No Action Required 11/17/23 12:00 11/17/23 12:18 11/17/23 12:36 Temperature Temperature Source Pulse Rate 98 H 91 H 97 H Pulse Rhythm Pulse Strength Respiratory Rate 29 H 28 H 26 H Respiratory Effort / Characteristics Respiratory Depth Respiratory Pattern Blood Pressure 138/84 138/84 Blood Pressure Mean 102 102 Blood Pressure Position Pulse Oximetry 95 95 Oxygen Delivery Method Sepsis Recent Fever Within 48 Hours Sepsis New/Unexplained Change in Mental Status Sepsis Action Taken by Nursing 11/17/23 13:06 11/17/23 13:33 Temperature Temperature Source Pulse Rate 94 H 93 H Pulse Rhythm Pulse Strength Respiratory Rate 34 H 33 H Respiratory Effort / Characteristics Respiratory Depth Respiratory Pattern Blood Pressure Blood Pressure Mean Blood Pressure Position Pulse Oximetry Oxygen Delivery Method Sepsis Recent Fever Within 48 Hours Sepsis New/Unexplained Change in Mental Status Sepsis Action Taken by Skilled Nursing Medications Current Medication List: was personally reviewed by me Laboratory Data Attestation: I reviewed the patient's lab results. 11/17/23 12:00 11/17/23 12:00 Lab Results 11/17/23 11/17/23 Range/Units 12:00 12:57 WBC 11.78 H (4.8-10.8) K/ul RBC 4.78 (4.70-6.10) M/uL Hgb 14.8 (14.0-18.0) g/dl Hct 43.5 (42.0-52.0) % MCV 91.0 (80.0-100.0) fL MCH 31.0 (25.0-34.0) pg MCHC 34.0 (32.0-36.0) g/dL RDW Std Deviation 47.9 H (36.4-46.3) fL RDW Coeff of Td 14.4 (11.5-14.5) % Plt Count 144 (130-400) K/uL MPV 9.7 (9.4-12.4) fL Immature Gran % (Auto) 0.5 % Neut % (Auto) 88.7 % Lymph % (Auto) 5.1 % Lyman % (Auto) 5.3 % Eos % (Auto) 0.0 % Baso % (Auto) 0.4 % Neut # (Auto) 10.44 H (1.40-6.50) K/uL Lymph # (Auto) 0.60 L (1.20-3.40) K/uL Lyman # (Auto) 0.63 H (0.11-0.59) K/uL Eos # (Auto) 0.00 (0.00-0.50) K/uL Baso # (Auto) 0.05 (0.00-0.20) K/uL Immature Gran # (Auto) 0.06 (0.01-0.20) K/uL PT 12.2 H (9.0-12.0) Seconds INR 1.1 (0.9-1.1) APTT 29 (21-31) Seconds PTT Ratio 1.1 Sodium 137 (136-145) mmol/L Potassium 4.0 (3.5-5.1) mmol/L Chloride 105 (98-107) mmol/L Carbon Dioxide 28 (21-32) mmol/L Anion Gap 4 (3-11) BUN 26 H (6-23) mg/dl Creatinine 1.07 (0.6-1.4) mg/dl Est Cr Clr Drug Dosing 87.9 ml/min Est GFR ( Amer) 79.4 ml/min Est GFR (Non-Af Amer) 68.5 ml/min BUN/Creatinine Ratio 24.3 H (10-20) Glucose 105 H (70-99(Fasting)) mg/dl Lactate 1.3 (0.4-2.0) mmol/L Calcium 9.7 (8.6-10.3) mg/dl Magnesium 1.9 (1.7-2.4) mg/dl Total Bilirubin 1.4 H (0.2-1.0) mg/dl AST 27 (13-39) U/L ALT 20 (7-52) U/L Alkaline Phosphatase 57 (34-104) U/L Total Protein 6.7 (6.0-8.3) gm/dl Albumin 4.0 (3.4-5.0) gm/dl Globulin 2.7 (2.5-4.0) gm/dl Albumin/Globulin Ratio 1.5 (0.9-2) TSH 0.783 (0.300-4.500) uIu/ml Urine Color Dark Yellow Urine Appearance Cloudy A (Clear) Urine pH 5.5 (4.5-7.5) Ur Specific [place] 1.023 (1.000-1.030) Urine Protein 1+ H (Negative) Urine Glucose (UA) Negative (Negative) Urine Ketones Trace H (Negative) Urine Blood Negative (Negative) Urine Nitrite Negative (Negative) Urine Bilirubin 1+ H (Negative) Urine Urobilinogen Negative (Negative) Ur Leukocyte Esterase 2+ H (Negative) Urine WBC (Auto) >50 H (0-5) /hpf Urine RBC (Auto) 3-5 H (0-2) /hpf U Hyaline Cast (Auto) 3-5 H (0-2) /lpf U Epithel Cells (Auto) 0-2 (0-2) /hpf Urine Bacteria (Auto) 3+ H (None Seen) Administered Medications Discontinued Medications Sodium Chloride (Nss) 1,000 mls @ 999 mls/hr IV .Q1H1M ODILON Stop: 11/17/23 13:00 Last Infusion: 11/17/23 13:14 Dose: Infused Documented By: Admin: 11/17/23 12:11 Dose: 999 mls/hr Documented By: ARS Cefepime HCl (Maxipime) 2,000 mg in 20 mls @ 5 mls/min IV NOW STA; Protocol Stop: 11/17/23 11:51 Last Admin: 11/17/23 12:32 Dose: 5 mls/min Documented By: MR Imaging Data Radiologist's Impression: Chest X-Ray 11/17/23 11:48 XR chest 1V portable CLINICAL HISTORY: Weakness. COMPARISON STUDY: Chest CT November 07, 2023. FINDINGS: Lung volumes are normal. Lungs are clear. There is no pneumothorax or pleural effusion. Stable mild cardiomegaly. Mediastinal contours are normal. There is no evidence for pulmonary edema. Electronic device projects over the chest. IMPRESSION: No acute cardiopulmonary findings. ACT 112: Negative or not required by law. Electronically signed by: Pedro Haro M.D. 11/17/2023 1:01 PM Abdomen/Pelvis CT 11/17/23 11:51 CT OF THE ABDOMEN AND PELVIS WITHOUT CONTRAST CLINICAL HISTORY: Flank pain. COMPARISON STUDY: CT of the abdomen and pelvis November 07, 2023. TECHNIQUE: Axial images of the abdomen and pelvis were obtained without IV contrast. Images were reviewed in the axial, sagittal, and coronal planes. Automated exposure control was utilized for the study. A dose lowering technique was utilized adhering to the principles of ALARA. FINDINGS: No pneumatosis, free air or portal venous gas is present. There are bilateral renal parapelvic cysts. There is no hydronephrosis and there are no urinary calculi. Water attenuation right renal lesion favors a cyst. A suspected hyperdense left renal cyst is similar to CT of August 14, 2014. There is an apparent 2.2 cm partially calcified density within the left posterior aspect of the bladder on image 308 of 385. Urothelial lesion cannot be excluded. Am 8.2 cm fat-containing right adrenal mass represents a myelolipoma. Left adrenal gland and pancreas are unremarkable with exception of a stable 1 cm nodule within the pancreatic body. This is similar to CT of August 14, 2014. There is no biliary ductal dilatation status post cholecystectomy. There are 2 fat-containing ventral hernias without resultant bowel obstruction. There is colonic diverticulosis without evidence for acute diverticulitis. There is no lymphadenopathy. No fluid collections are present. No acute fractures are identified within the lumbar spine, pelvis or hips. IMPRESSION: 1. No urinary calculi or hydronephrosis. 2. Subtle density within the left posterior aspect of the bladder. A partially calcific urothelial lesion cannot be excluded. Nonemergent Urology consultation for consideration for cystoscopy is recommended. 3. Two bowel containing ventral hernias without resultant bowel obstruction. 4. 8.2 cm right adrenal myelolipoma. ACT 112: Positive. There are findings on this exam that require communication between the performing entity and the patient following Patient Test Result Information Act ([place] Act 112) guidelines. Electronically signed by: Pedro Haro M.D. 11/17/2023 1:27 PM Discharge Plan Visit Data Chief Complaint: Referred by Doctor Stated Complaint: BLOOD INFECTION ED Provider: Melchor Baird Discharge Problem: Fever, Acute UTI, Leukocytosis, History of kidney stones Patient Disposition: Admitted As Inpatient Condition: Fair Discharge Instructions Interventions: ED Discharge Assessment Last Done: 11/17/23 15:00 Discharge Problem: Fever Qualifiers: Fever type: unspecified Qualified Code(s): R50.9 - Fever, unspecified Leukocytosis Qualifiers: Leukocytosis type: unspecified Qualified Code(s): D72.829 - Elevated white blood cell count, unspecified
[2023-11-17] MEDS: SODIUM CHLORIDE 0.9% 1,000 ML IV SCH (12:11)
[2023-11-17] MEDS: CEFEPIME 2,000 MG/20 ML VIAL IV STA (12:32)
[2023-11-17 12:33] LABS: Basophils # (auto) 0.05 K/uL (0.00-0.20); Basophils % (auto) 0.4 %; Hematocrit (blood only) 43.5 % (42.0-52.0); Hemoglobin 14.8 g/dl (14.0-18.0); Immature Granulocytes # (auto) 0.06 K/uL (0.01-0.20); Immature Granulocytes % (auto) 0.5 %; Lymphocytes % (auto) 5.1 %; Mean Platelet Volume 9.7 fL (9.4-12.4); Monocytes # (auto) 0.63 K/uL (0.11-0.59); Monocytes % (auto) 5.3 %; Neutrophils # (auto) 10.44 K/uL (1.40-6.50); Neutrophils % (auto) 88.7 %; Platelet Count 144 K/uL (130-400); RDW Coefficient of Variation 14.4 % (11.5-14.5); RDW Standard Deviation 47.9 fL (36.4-46.3); Red Blood Count 4.78 M/uL (4.70-6.10); White Blood Count 11.78 K/ul (4.8-10.8)
[2023-11-17 12:42] LABS: Albumin Globulin Ratio 1.5 (0.9-2); BUN Creatinine Ratio 24.3 (10-20); Bilirubin,Total 1.4 mg/dl (0.2-1.0); Calcium 9.7 mg/dl (8.6-10.3); Creatinine Clr Calc Pharmacy 87.9 ml/min; Est GFR (African American) 79.4 ml/min; Est GFR (Non-African American) 68.5 ml/min; Globulin 2.7 gm/dl (2.5-4.0); Magnesium 1.9 mg/dl (1.7-2.4); Total Protein 6.7 gm/dl (6.0-8.3)
[2023-11-17 12:57] LABS: Thyroid Stimulating Hormone 0.783 uIu/ml (0.300-4.500)
[2023-11-17 13:02] LABS: INR 1.1 (0.9-1.1); Partial Thromboplastin Ratio 1.1; Partial Thromboplastin Time 29 Seconds (21-31); Prothrombin Time 12.2 Seconds (9.0-12.0)
--- NOTE | 2023-11-17 13:03 | XRay Report ---
XR chest 1V portable CLINICAL HISTORY: Weakness. COMPARISON STUDY: Chest CT November 07, 2023. FINDINGS: Lung volumes are normal. Lungs are clear. There is no pneumothorax or pleural effusion. Sta ble mild cardiomegaly. Mediastinal contours are normal. There is no evidence for pulmonary edema. Gogo ctronic device projects over the chest. IMPRESSION: No acute cardiopulmonary findings. ACT 112: Negative or not required by law. Electronically signed by: Pedro Haro M.D. 11/17/2023 1:01 PM
--- NOTE | 2023-11-17 13:30 | CT Scan Report ---
CT OF THE ABDOMEN AND PELVIS WITHOUT CONTRAST CLINICAL HISTORY: Flank pain. COMPARISON STUDY: CT of the abdomen and pelvis November 07, 2023. TECHNIQUE: Axial images of the abdomen and pelvis were obtained without IV contrast. Images were revi ewed in the axial, sagittal, and coronal planes. Automated exposure control was utilized for the alfredo dy. A dose lowering technique was utilized adhering to the principles of ALARA. FINDINGS: No pneumatosis, free air or portal venous gas is present. There are bilateral renal parapel yordan cysts. There is no hydronephrosis and there are no urinary calculi. Water attenuation right renal lesion favors a cyst. A suspected hyperdense left renal cyst is similar to CT of August 14, 2014. The re is an apparent 2.2 cm partially calcified density within the left posterior aspect of the bladder on image 308 of 385. Urothelial lesion cannot be excluded. Am 8.2 cm fat-containing right adrenal mas s represents a myelolipoma. Left adrenal gland and pancreas are unremarkable with exception of a stab le 1 cm nodule within the pancreatic body. This is similar to CT of August 14, 2014. There is no bilia ry ductal dilatation status post cholecystectomy. There are 2 fat-containing ventral hernias without resultant bowel obstruction. There is colonic diverticulosis without evidence for acute diverticuliti s. There is no lymphadenopathy. No fluid collections are present. No acute fractures are identified w ithin the lumbar spine, pelvis or hips. IMPRESSION: 1. No urinary calculi or hydronephrosis. 2. Subtle density within the left posterior aspect of the bladder. A partially calcific urothelial le rowan cannot be excluded. Nonemergent Urology consultation for consideration for cystoscopy is recomme nded. 3. Two bowel containing ventral hernias without resultant bowel obstruction. 4. 8.2 cm right adrenal myelolipoma. ACT 112: Positive. There are findings on this exam that require communication between the performing entity and the patient following Patient Test Result Information Act ([place] Act 112) guidelines. Electronically signed by: Pedro Haro M.D. 11/17/2023 1:27 PM
[2023-11-17 13:37] LABS: Appearance Urine Cloudy (Clear); Bacteria Urine Automated 3+ (None Seen); Bilirubin Urine 1+ (Negative); Blood Urine Negative (Negative); Color Urine Dark Yellow; Epithelial Cell Urine Auto 0-2 /hpf (0-2); Glucose Urine UA Negative (Negative); Ketones Urine Trace (Negative); Leukocyte Esterase Urine 2+ (Negative); Nitrite Urine Negative (Negative); Protein Urine 1+ (Negative); Specific Gravity Urine 1.023 (1.000-1.030); Urobilinogen Urine Negative (Negative); WBC Urine Automated >50 /hpf (0-5); pH Urine 5.5 (4.5-7.5)
--- NOTE | 2023-11-17 14:05 | History & Physical Report ---
Date of Service November 17, 2023 Assessment & Plan (1) Sepsis: Plan: Admit to med/telemetry Currently stable and nontoxic-appearing Was sent to the ED from the urgent care clinic earlier this afternoon due to concerns for sepsis Patient has been experiencing dysuria, subjective fevers, right flank pain, and reduced appetite for the past 72 hours Patient thinks he may have passed a kidney stone during this time Patient meets sepsis criteria with a heart rate of 105, respiratory rate of 29, and source being his UTI Chest x-ray was negative for acute findings, CT of the abdomen pelvis was negative for hydronephrosis or urinary calculi or other sources of infection Lactate was within normal limits Patient was given a dose of cefepime and 1 L normal saline in the ED While the patient's sepsis fluid bolus based on ideal body weight is 2200 mL, he is hemodynamically stable, nontoxic-appearing, and has a LVEF of 35% We will hold further IV fluid boluses at this time and continue to monitor as we do not want to send him into volume overload and respiratory failure Will continue with ceftriaxone for now follow blood and urine cultures Home Eliquis for DVT prophylaxis Heart healthy diet with 2 g sodium and 1800 mL fluid restriction A.m. CBC, CMP, mag, PT/INR (2) Abnormal CT scan, bladder: Plan: CT of the abdomen pelvis without contrast noted a subtle density within the left posterior aspect of the bladder. A partially calcified urothelial lesion cannot be excluded. Nonemergent urologic consultation is recommended for consideration of cystoscopy Please ensure patient's PCP is made aware of the need for outpatient urology referral at the time of discharge (3) UTI (urinary tract infection): Plan: UA consistent with UTI today Patient had grown Enterococcus faecalis once in 2019, otherwise previous urine cultures have been unremarkable Did receive a dose of cefepime in the ED, we will continue with ceftriaxone for now as he is hemodynamically stable and nontoxic-appearing Follow urine and blood cultures (4) Hypertension: Plan: Stable will continue metoprolol but hold lisinopril today to prevent hypotension as patient does meet sepsis criteria on admission (5) HFrEF (heart failure with reduced ejection fraction): Plan: Monitor volume status closely moving forward as LVEF is 35% as of 2021 Patient is euvolemic on exam with clear chest x-ray Holding further IV fluids at the time of admission (6) Tobacco abuse: Plan: Patient smokes multiple cigars daily, has no interest in cessation He is wheezing on exam, but says he will refuse breathing treatments during admission as he does not like our nebulizer machines He is stable on room air at this time and in no respiratory distress Incentive spirometry for now Plan The patient was discussed with Dr. Almanzar at the time of the admission History of Present Illness Chief Complaint: Referred by doctor Primary Care Provider: ARELI Nicole Minda is a 73-year-old male with a past medical history significant for recurrent UTIs, ischemic cardiomyopathy (LVEF of 35% as of 2021), DVT (on Eliquis), current tobacco use, hypertension who presented to the [facility] ED at the recommendation of the urgent care clinic due to concerns for possible sepsis. On arrival to the ED the patient was noted to be tachycardic at 105, tachypneic at 29, hypertensive at 162/93, but otherwise stable. Labs were significant for a leukocytosis of 11 with neutrophil predominance of 10, and UA consistent with UTI. Chest x-ray was read as negative for acute findings. CT of the abdomen pelvis without contrast was read as negative for urinary calculi or hydronephrosis. Subtle density within the left posterior aspect of the bladder. A partially calcified uroileal lesion cannot be excluded. Nonemergent urology consultation for consideration for cystoscopy is recommended. 2 bowel containing ventral hernias without resultant bowel obstruction. 8.2 cm right adrenal myelo lipoma. Prior to admission blood cultures were obtained and urine was sent for urine culture. Patient was given a dose of cefepime and ordered 1 L normal saline. Patient was sitting in bed in no acute distress at the time of the exam with his bedside, history was obtained from both. He had been in his normal state of health when he believes he passed a kidney stone approximately 3 days ago as he noticed a large piece of debris with painful urination. Since then he has been having ongoing dysuria, hematuria, mild right flank pain, and subjective fevers. He had decreased appetite today which is why he initially presented to the urgent care clinic. Symptoms have improved since arrival other than his dysuria. Denies recent chest pain, shortness of breath, abdominal pain, nausea/vomiting, diarrhea, recent trauma, or recent wounds/skin infections. He smokes multiple cigars daily and has no intentions of quitting, he is not interested in nicotine patch. We discussed CODE STATUS, the patient wishes to be a DNR/DNI and for his to make medical decisions for him if he cannot himself. Please refer to Dr. Almanzar's attestation for any changes to the treatment plan Allergies Allergy/AdvReac Type Severity Reaction Status Date / Time ampicillin Allergy Severe Rash on Unverified 11/17/23 13:23 face/forehead/swelling Beta-Blockers Allergy Unknown "COULDN'T Verified 11/17/23 13:22 (Beta-Adrenergic Bloc BARELY MOVE" grass pollen Allergy Unknown SNEEZING, Verified 11/17/23 13:22 ITCHY EYES house dust Allergy Unknown SNEEZING, Verified 11/17/23 13:22 ITCHY EYES house dust mite Allergy Unknown SNEEZING, Verified 11/17/23 13:22 ITCHY EYES atorvastatin AdvReac Unknown Myalgia Verified 11/17/23 13:22 verapamil AdvReac Unknown LOWERED Verified 11/17/23 13:22 PULSE RATE TO 20-30 ? Home Medications Medication Instructions Recorded Confirmed Type magnesium 250 mg tablet 250 mg PO QAM 05/24/20 11/17/23 History cholecalciferol (vitamin D3) 50 50 mcg PO DAILY 09/20/22 11/17/23 History mcg (2,000 unit) capsule clopidogrel 75 mg tablet (Plavix) 75 mg PO DAILY #90 tabs 05/18/23 11/17/23 Rx metoprolol succinate 25 mg 25 mg PO DAILY #90 tabs 05/18/23 11/17/23 Rx tablet,extended release 24 hr tamsulosin 0.4 mg capsule 0.4 mg PO DAILY #90 caps 09/05/23 11/17/23 Rx acetaminophen 500 mg/15 mL oral 500 mg PO QID PRN pain/fever 09/07/23 11/17/23 History liquid cranberry extract 200 mg capsule 400 mg PO DAILY 09/07/23 11/17/23 History apixaban 5 mg tablet (Eliquis) 5 mg PO BID #60 tabs 11/01/23 11/17/23 Rx lisinopril 10 mg tablet See Rx Instructions .Route .COMPLEX 11/17/23 11/17/23 History lisinopril 20 mg tablet See Rx Instructions .Route .COMPLEX 11/17/23 11/17/23 History nitrofurantoin 100 mg PO DAILY 11/17/23 11/17/23 History monohydrate/macrocrystals 100 mg capsule potassium chloride 10 mEq 10 meq PO DAILY muscle spasticity 11/17/23 11/17/23 History tablet,extended release (Klor-Con) Past Med/Surg History Problem List (Updated 11/17/23 @ 14:27 by Keenan Arevalo PA-C) Tobacco abuse HFrEF (heart failure with reduced ejection fraction) UTI (urinary tract infection) Abnormal CT scan, bladder Sepsis Arthralgia Neck pain without injury Muscle spasms of lower extremity Recurrent UTI Decreased urine output Irregular heart rate Thoracic back pain Hypertension History of gastric surgery Pancreatic neoplasm (Acute) declines futher w/u, imaging Idiopathic peripheral neuropathy (Chronic) Dyslipidemia (Chronic) Cardiomyopathy, ischemic (Acute) Osteoarthritis of left hip Anemia (Chronic) Greater trochanteric bursitis Lumbar back pain with radiculopathy affecting left lower extremity Statin myopathy (Acute) Morbid obesity Trochanteric bursitis, right hip Medical History Vision problem History of colon polyps History of VT (myocardial infarction) Acute GI bleeding Nephrolithiasis Coronary artery disease Arthritis Surgical History History of radial keratotomy Hx of LASIK History of colonoscopy H/O heart artery stent History of gastric bypass S/P cataract surgery History of cholecystectomy Family History Father Prostate cancer Skin cancer Son Family history of Crohn's disease Family/Other Hypertension Denies family history of Ovarian cancer Myocardial infarction Breast cancer Colorectal cancer Social History Smoking Status: Current every day smoker Tobacco Type: Cigars Age Started Using Tobacco: 28; Cigarettes Per Day: 5 cigars per day; Second Hand Exposure: Yes; Do You Dip or Chew Tobacco: No; Hx Alcohol Use: Yes Alcohol type: beer Alcohol Intake Frequency: 4 or More x per/Week Hx Substance Use: No Preferred Language: Yoruba Communication Ability: Effective Visual Impairment: Limited Hearing Ability: Normal Building Services Technician Required: No Beliefs That Will Affect Care: None marital status: Current Living Situation: Spouse current occupational status: retired How many Children do You have: 2 Feels Safe at Home: Yes Childhood Exposure to Second-Hand Smoke: No Diet: Soft and regular caffeine: Yes during the past year weight has: remained stable Dental Care, Regularly: No Physical Activity Frequency: Does not Exercise Seatbelt Use: sometimes Sunscreen Use: No Assistive Devices: Glasses Physical Exam Physical Exam: Physical Exam: General: In no acute distress, stated age, morbidly obese, poor hygiene HEENT: Normocephalic, atraumatic, no scleral icterus, pupils around round, symmetrical, and reactive to light, moist mucus membranes, trachea midline, no thyromegaly Chest/Pulm: No respiratory distress, symmetrical chest expansion, scattered expiratory wheezing throughout Cardiac: RRR, no murmurs noted Abdomen: Negative for ascites and bruising, normoactive bowel sounds, soft, non-tender to palpation throughout Musculoskeletal: Symmetrical and without signs of acute trauma, upper and lower extremities with full ROM, no atrophy, spasticity, or flaccidity Extremities: Radial, dorsalis pedis, and posterior tibial pulses are intact and symmetrical, 1+ edema noted in the BL LE's Skin: Warm, dry, small skin tear on the right wang is without signs of infection or drainage Neuro: Alert and oriented to person, place, month, year, and president, no focal defects, no tremors noted Psych: No acute distress, calm and cooperative during the exam Results & Data Results & Data Vital Signs (Past 12 Hours) Vital Signs Temp Pulse Resp BP Pulse Ox O2 Del Method 11/17/23 12:36 97 H 26 H 95 11/17/23 12:18 91 H 28 H 138/84 95 11/17/23 12:00 98 H 29 H 138/84 11/17/23 11:56 104 H 11/17/23 11:40 37.5 C 109 H 16 162/93 H 94 Room Air 11/17/23 11:30 Room Air Laboratory Results Abnormal lab results 11/17/23 11/17/23 Range/Units 12:00 12:57 WBC 11.78 H (4.8-10.8) K/ul RDW Std Deviation 47.9 H (36.4-46.3) fL Neut # (Auto) 10.44 H (1.40-6.50) K/uL Lymph # (Auto) 0.60 L (1.20-3.40) K/uL [place] # (Auto) 0.63 H (0.11-0.59) K/uL PT 12.2 H (9.0-12.0) Seconds BUN 26 H (6-23) mg/dl BUN/Creatinine Ratio 24.3 H (10-20) Glucose 105 H (70-99(Fasting)) mg/dl Total Bilirubin 1.4 H (0.2-1.0) mg/dl Urine Appearance Cloudy A (Clear) Urine Protein 1+ H (Negative) Urine Ketones Trace H (Negative) Urine Bilirubin 1+ H (Negative) Ur Leukocyte Esterase 2+ H (Negative) Urine WBC (Auto) >50 H (0-5) /hpf Urine RBC (Auto) 3-5 H (0-2) /hpf U Hyaline Cast (Auto) 3-5 H (0-2) /lpf Urine Bacteria (Auto) 3+ H (None Seen) Diagnostic Findings Chest X-Ray 11/17/23 11:48 XR chest 1V portable CLINICAL HISTORY: Weakness. COMPARISON STUDY: Chest CT November 07, 2023. FINDINGS: Lung volumes are normal. Lungs are clear. There is no pneumothorax or pleural effusion. Stable mild cardiomegaly. Mediastinal contours are normal. There is no evidence for pulmonary edema. Electronic device projects over the chest. IMPRESSION: No acute cardiopulmonary findings. ACT 112: Negative or not required by law. Electronically signed by: Pedro Haro M.D. 11/17/2023 1:01 PM Abdomen/Pelvis CT 11/17/23 11:51 CT OF THE ABDOMEN AND PELVIS WITHOUT CONTRAST CLINICAL HISTORY: Flank pain. COMPARISON STUDY: CT of the abdomen and pelvis November 07, 2023. TECHNIQUE: Axial images of the abdomen and pelvis were obtained without IV contrast. Images were reviewed in the axial, sagittal, and coronal planes. Automated exposure control was utilized for the study. A dose lowering technique was utilized adhering to the principles of ALARA. FINDINGS: No pneumatosis, free air or portal venous gas is present. There are bilateral renal parapelvic cysts. There is no hydronephrosis and there are no urinary calculi. Water attenuation right renal lesion favors a cyst. A suspected hyperdense left renal cyst is similar to CT of August 14, 2014. There is an apparent 2.2 cm partially calcified density within the left posterior aspect of the bladder on image 308 of [id number]. Urothelial lesion cannot be excluded. Am 8.2 cm fat-containing right adrenal mass represents a myelolipoma. Left adrenal gland and pancreas are unremarkable with exception of a stable 1 cm nodule within the pancreatic body. This is similar to CT of August 14, 2014. There is no biliary ductal dilatation status post cholecystectomy. There are 2 fat-containing ventral hernias without resultant bowel obstruction. There is colonic diverticulosis without evidence for acute diverticulitis. There is no lymphadenopathy. No fluid collections are present. No acute fractures are identified within the lumbar spine, pelvis or hips. IMPRESSION: 1. No urinary calculi or hydronephrosis. 2. Subtle density within the left posterior aspect of the bladder. A partially calcific urothelial lesion cannot be excluded. Nonemergent Urology consultation for consideration for cystoscopy is recommended. 3. Two bowel containing ventral hernias without resultant bowel obstruction. 4. 8.2 cm right adrenal myelolipoma. ACT 112: Positive. There are findings on this exam that require communication between the performing entity and the patient following Patient Test Result Information Act ([place] Act 112) guidelines. Electronically signed by: Pedro Haro M.D. 11/17/2023 1:27 PM Code Status & VTE Plan Code Status DNR/DNI VTE Prophylaxis Plan VTE Prophylaxis will be ordered: Yes Supervising Physician Co-Signing Physician Notes patient was seen and examined, reports having fever at home , chronically on Microbid , had right flank pain , possibly passed a stone. He was started on IV antibiotics in ER , will continue Rocephin for now, pain control, follow up on blood and urine cultures. GENERAL: Patient is in no acute distress. HEENT: No acute trauma, normocephalic atraumatic, mucous membranes moist, no nasal congestion. NECK: No stridor, no adenopathy, no meningismus, trachea is midline. LUNGS: Clear to auscultation bilaterally when listening anterior, no wheeze, no rhonchi, breath sounds equal. HEART: Mildly tachycardic with a slightly irregular rhythm, no obvious murmur. ABDOMEN: Soft, nontender, no peritonitis. Obese. EXTREMITIES: No cyanosis, full range of motion of all the joints without pain or difficulty. Mild bilateral pedal edema. NEUROLOGIC: Oriented x 3, no acute motor or sensory deficits, no focal weakness. SKIN: No jaundice, no diaphoresis. Groin: The patient has a large pannus over the groin. No evidence for erythema or infection. There is no scrotal erythema or any other sign for infection. agree with above assessment and plan continue home meds PG Care Time/CCT Total # of Minutes Spent Total Time Spent with Patient: Total time spent is greater than 50% in coordination of care (as documented) at patient's floor/unit and/or counseling patient: Coding [place] [address] INT INP/OBS CARE 2/55MIN Patient Type Established Medical Decision Making Moderate Complexity Diagnoses Sepsis A41.[address] scan, bladder R93.41 UTI (urinary tract infection) N39.0 Primary hypertension I10 Hypertension type: primary hypertension HFrEF (heart failure with reduced ejection fraction) I50.20 Tobacco abuse Z72.0 (4) Hypertension Hypertension type: primary hypertension Qualified Code(s): I10 - Essential (primary) hypertension
--- NOTE | 2023-11-17 19:23 | Electrocardiogram Report ---
Test Reason : Blood Pressure : / mmHG Vent. Rate : 097 BPM Atrial Rate : 097 BPM P-R Int : 114 ms QRS Dur : 094 ms QT Int : 358 ms P-R-T Axes : 015 -16 002 degrees QTc Int : 454 ms Sinus rhythm Premature atrial complexes Cannot rule out Anterior infarct , age undetermined Nonspecific T wave abnormality Abnormal ECG When compared with ECG of 31-OCT-2019 19:08, Premature atrial complexes are now Present Confirmed by Tahir Lind ([id number]) on 11/17/2023 7:22:57 PM Referred By: Confirmed By:Tahir Lind
[2023-11-17] MEDS: APIXABAN 5 MG TABLET PO SCH (20:20)
[2023-11-17] MEDS: cefTRIAXone SODIUM 2,000 MG/50 ML BAG IV SCH (20:21)
[2023-11-18 07:29] LABS: BUN Creatinine Ratio 25.3 (10-20); Calcium 8.8 mg/dl (8.6-10.3); Creatinine Clr Calc Pharmacy 108.3 ml/min; Est GFR (African American) 99.2 ml/min; Est GFR (Non-African American) 85.6 ml/min; Magnesium 1.9 mg/dl (1.7-2.4)
[2023-11-18 07:42] LABS: Basophils # (auto) 0.04 K/uL (0.00-0.20); Basophils % (auto) 0.4 %; Eosinophils # (auto) 0.07 K/uL (0.00-0.50); Eosinophils % (auto) 0.7 %; Hematocrit (blood only) 39.3 % (42.0-52.0); Hemoglobin 13.3 g/dl (14.0-18.0); Immature Granulocytes # (auto) 0.04 K/uL (0.01-0.20); Immature Granulocytes % (auto) 0.4 %; Lymphocytes # (auto) 0.97 K/uL (1.20-3.40); Lymphocytes % (auto) 10.3 %; Mean Corpuscular Hemoglobin 30.7 pg (25.0-34.0); Mean Corpuscular Hgb Conc 33.8 g/dL (32.0-36.0); Mean Corpuscular Volume 90.8 fL (80.0-100.0); Mean Platelet Volume 10.3 fL (9.4-12.4); Monocytes # (auto) 1.05 K/uL (0.11-0.59); Monocytes % (auto) 11.2 %; Neutrophils # (auto) 7.22 K/uL (1.40-6.50); Platelet Count 143 K/uL (130-400); RDW Coefficient of Variation 14.2 % (11.5-14.5); RDW Standard Deviation 47.6 fL (36.4-46.3); Red Blood Count 4.33 M/uL (4.70-6.10); White Blood Count 9.39 K/ul (4.8-10.8)
[2023-11-18 07:47] LABS: INR 1.1 (0.9-1.1); Prothrombin Time 11.5 Seconds (9.0-12.0)
[2023-11-18] MEDS: METOPROLOL SUCC 25MG EXT REL TAB PO SCH (08:25)
[2023-11-18] MEDS: TAMSULOSIN HCL 0.4 MG CAP PO SCH (08:25)
[2023-11-18] MEDS: CLOPIDOGREL BISULFATE 75 MG TAB PO SCH (08:25)
--- NOTE | 2023-11-18 09:47 | Hospitalist Progress Note ---
Date of Service November 18, 2023 Assessment & Plan (1) Sepsis: Plan: Was sent to the ED from the urgent care clinic due to concerns for sepsis Patient has been experiencing dysuria, subjective fevers, right flank pain, After passing a kidney stone On admission, patient met sepsis criteria, likely source UTI Chest x-ray was negative for acute findings, CT of the abdomen pelvis was negative for hydronephrosis or urinary calculi or other sources of infection -Cultures were obtained patient empirically started on IV antibiotics cefepime, This has been changed to ceftriaxone -Upon evaluation today, he feels a lot better states the flank pain has resolved -Await cultures (2) Abnormal CT scan, bladder: Plan: CT of the abdomen pelvis without contrast noted a subtle density within the left posterior aspect of the bladder. A partially calcified urothelial lesion cannot be excluded. Nonemergent urologic consultation is recommended for consideration of cystoscopy Outpatient follow-up with urology (3) UTI (urinary tract infection): Plan: UA consistent with UTI today Patient had grown Enterococcus faecalis once in 2019, otherwise previous urine cultures have been unremarkable Did receive a dose of cefepime in the ED, we will continue with ceftriaxone for now as he is hemodynamically stable and nontoxic-appearing Follow urine and blood cultures (4) Hypertension: Plan: Stable will continue metoprolol but hold lisinopril today to prevent hypotension as patient does meet sepsis criteria on admission (5) HFrEF (heart failure with reduced ejection fraction): Plan: Monitor volume status closely moving forward as LVEF is 35% as of 2021 Patient is euvolemic on exam with clear chest x-ray Holding further IV fluids at the time of admission (6) Tobacco abuse: Plan: Patient smokes multiple cigars daily, has no interest in cessation He is wheezing on exam, but says he will refuse breathing treatments during admission as he does not like our nebulizer machines He is stable on room air at this time and in no respiratory distress Incentive spirometry for now Plan Continue hospitalization Await cultures Admission and Anticipated Discharge Date Admission Date: November 17, 2023 Subjective Patient seen and examined, states the flank pain is resolved, denies fevers or chills Review of Systems Review of Systems: All systems reviewed are negative, apart from the ones contained in the history. Physical Exam Physical Exam: The patient is awake, alert and oriented 3, well developed and well nourished, normocephalic and atraumatic, lying in bed and in no acute distress. HEENT--PERRL, EOMI, mucous membranes and oropharynx mildly dry Neck--supple. No JVD. No bruits. Thyroid normal, trachea midline, no adenopathy. Heart--normal S1 and S2. No murmurs, rubs or gallops. Lungs--clear bilaterally, no respiratory distress, no accessory muscle use. Abdomen--normal bowel sounds and soft. Extremities--no cyanosis or clubbing. No edema. Dermatologic--normal skin turgor, normal color, no abnormal lymph nodes, no rash. Neurologic--cranial nerves II through XII grossly intact. Rheumatologic--normal range of motion. Psychiatric--normal affect. Results & Data Results & Data Vital Signs (Past 12 Hours) Vital Signs Temp Pulse Pulse Resp BP Pulse Ox O2 Del Method 11/18/23 08:27 98.2 F 83 20 119/79 95 Room Air 11/18/23 08:00 81 11/18/23 04:31 98.1 F 79 16 127/84 92 Room Air 11/17/23 23:16 97.9 F 87 16 113/69 92 Room Air 11/17/23 23:00 87 PG Care Time/CCT Total # of Minutes Spent Total Time Spent with Patient: Total time spent is greater than 50% in coordination of care (as documented) at patient's floor/unit and/or counseling patient: Coding Level of Care Code 46472 SUB INP/OBS CARE 2/35MIN Diagnoses Sepsis A41.[address] scan, bladder R93.41 UTI (urinary tract infection) N39.0 Primary hypertension I10 Hypertension type: primary hypertension HFrEF (heart failure with reduced ejection fraction) I50.20 Tobacco abuse Z72.0 Time Spent (min) 35 (4) Hypertension Hypertension type: primary hypertension Qualified Code(s): I10 - Essential (primary) hypertension
[2023-11-19 06:53] LABS: Basophils # (auto) 0.04 K/uL (0.00-0.20); Basophils % (auto) 0.6 %; Eosinophils # (auto) 0.14 K/uL (0.00-0.50); Eosinophils % (auto) 2.2 %; Hematocrit (blood only) 36.4 % (42.0-52.0); Hemoglobin 12.2 g/dl (14.0-18.0); Immature Granulocytes # (auto) 0.03 K/uL (0.01-0.20); Immature Granulocytes % (auto) 0.5 %; Lymphocytes % (auto) 17.2 %; Mean Corpuscular Hemoglobin 30.4 pg (25.0-34.0); Mean Corpuscular Hgb Conc 33.5 g/dL (32.0-36.0); Mean Corpuscular Volume 90.8 fL (80.0-100.0); Mean Platelet Volume 10.3 fL (9.4-12.4); Monocytes # (auto) 0.72 K/uL (0.11-0.59); Monocytes % (auto) 11.3 %; Neutrophils # (auto) 4.35 K/uL (1.40-6.50); Neutrophils % (auto) 68.2 %; Platelet Count 134 K/uL (130-400); RDW Coefficient of Variation 14.1 % (11.5-14.5); RDW Standard Deviation 46.8 fL (36.4-46.3); Red Blood Count 4.01 M/uL (4.70-6.10); White Blood Count 6.38 K/ul (4.8-10.8)
[2023-11-19 07:40] LABS: Prothrombin Time 11.1 Seconds (9.0-12.0)
[2023-11-19 10:24] LABS: Calcium 8.6 mg/dl (8.6-10.3); Potassium 3.9 mmol/L (3.5-5.1)
[2023-11-19 10:30] LABS: BUN Creatinine Ratio 21.1 (10-20); Creatinine Clr Calc Pharmacy 99.5 ml/min; Est GFR (African American) 91.7 ml/min; Est GFR (Non-African American) 79.1 ml/min
--- NOTE | 2023-11-19 12:49 | Urology Consultation ---
Date of Consultation November 19, 2023 Assessment & Plan (1) Acute UTI: (2) Abnormal CT scan, bladder: (3) Adrenal myelolipoma: 73 yo/M admitted for suspected UTI and sepsis Urology consulted for UTI, possible bladder mass and adrenal myelolipoma He is afebrile and hemodynamically stable Labs reviewedcreatinine 0.95, WBC 6.38, hemoglobin 12.2 Urinalysis appeared grossly positive Urine culture did not identify any specific bacteria Blood cultures showing no growth x 24 hours Recommend monitor voiding, bladder scan as needed CT reviewed and discussed with patient Discussed finding of density within the bladder Discussed recommendation for cystoscopy outpatient for further evaluation, he is hesitant Discussed finding of 8.2 cm right adrenal myolipoma, which has grown in size since 2015can discuss options as an outpatient Recommend continue empiric antibiotics for suspected UTI Will arrange outpatient urology follow-up to discuss cystoscopy and ongoing management will follow peripherally, please contact our service with any additional questions or concerns History of Present Illness Attending Physician: Christianne Chavez MD History of Present Illness This is a 73-year-old male with past medical history of hypertension, ischemic cardiomyopathy, DVT on Eliquis, current tobacco use, and recurrent UTIs who was referred to the emergency department by the urgent care clinic due to concerns for UTI with possible sepsis. On arrival, he was tachycardic, tachypneic and hypertensive. Lab work showed WBC 11.78, hemoglobin 14.8, creatinine 1.07, lactate 1.3. Urinalysis showed 2+ LE, >50 WBC, 3-5 RBC, 0-2 epithelial cells and 3+ bacteria. Workup included CT A/P without contrast. CT imaging reviewed and showed no urinary calculi or hydronephrosis, subtle density within the left posterior aspect of the bladder; an 8.2 cm right adrenal myelolipoma. ED course: IV fluids and cefepime. He was admitted to the hospital medicine service for UTI with possible sepsis. Urology consulted for bladder mass, adrenal mass, UTI. Patient is known to our service. Previously seen for recurrent UTI and has been on Macrobid daily for prevention. Labs todaycreatinine 0.95, WBC 6.38, hemoglobin 12.2 Urine culture showed more than 3 types of organisms present, all high counts of mixed probable skin karel Blood cultures with no growth x 24 hours Currently on IV ceftriaxone Patient seen and examined at bedside. He is awake and sitting up in bedside chair. He denies flank or abdominal pain at present. He reports that over the past week he had right flank pain and subsequently felt he passed a kidney stone. He reports dysuria, hematuria, fever and shaking chills prior to arrival. He went to urgent care for further evaluation and was referred to the emergency department. He reports he is no longer having dysuria or hematuria. He is voiding spontaneously and feels he is emptying his bladder well. He has been on Macrobid daily for the past year. He reports he has been doing well with regimen. He is a current every day smoker of cigars. He had a cystoscopy in 2015. Allergies Allergy/AdvReac Type Severity Reaction Status Date / Time ampicillin Allergy Severe Rash on Unverified 11/17/23 13:23 face/forehead/swelling Beta-Blockers Allergy Unknown "COULDN'T Verified 11/17/23 13:22 (Beta-Adrenergic Bloc BARELY MOVE" grass pollen Allergy Unknown SNEEZING, Verified 11/17/23 13:22 ITCHY EYES house dust Allergy Unknown SNEEZING, Verified 11/17/23 13:22 ITCHY EYES house dust mite Allergy Unknown SNEEZING, Verified 11/17/23 13:22 ITCHY EYES atorvastatin AdvReac Unknown Myalgia Verified 11/17/23 13:22 verapamil AdvReac Unknown LOWERED Verified 11/17/23 13:22 PULSE RATE TO 20-30 ? Home Medications Medication Instructions Recorded Confirmed Type magnesium 250 mg tablet 250 mg PO QAM 05/24/20 11/17/23 History cholecalciferol (vitamin D3) 50 50 mcg PO DAILY 09/20/22 11/17/23 History mcg (2,000 unit) capsule clopidogrel 75 mg tablet (Plavix) 75 mg PO DAILY #90 tabs 05/18/23 11/17/23 Rx metoprolol succinate 25 mg 25 mg PO DAILY #90 tabs 05/18/23 11/17/23 Rx tablet,extended release 24 hr tamsulosin 0.4 mg capsule 0.4 mg PO DAILY #90 caps 09/05/23 11/17/23 Rx acetaminophen 500 mg/15 mL oral 500 mg PO QID PRN pain/fever 09/07/23 11/17/23 History liquid cranberry extract 200 mg capsule 400 mg PO DAILY 09/07/23 11/17/23 History apixaban 5 mg tablet (Eliquis) 5 mg PO BID #60 tabs 11/01/23 11/17/23 Rx lisinopril 10 mg tablet See Rx Instructions .Route .COMPLEX 11/17/23 11/17/23 History lisinopril 20 mg tablet See Rx Instructions .Route .COMPLEX 11/17/23 11/17/23 History nitrofurantoin 100 mg PO DAILY 11/17/23 11/17/23 History monohydrate/macrocrystals 100 mg capsule potassium chloride 10 mEq 10 meq PO DAILY muscle spasticity 11/17/23 11/17/23 History tablet,extended release (Klor-Con) Patient History Medical History Vision problem SINCE EYE SX, VISION FLUCTUATES - WITH TOO MUCH LIGHT HAVE TROUBLE READING History of colon polyps History of [place] (myocardial infarction) 2 YR AGO Acute GI bleeding HX Nephrolithiasis HX Coronary artery disease Arthritis Surgical History History of radial keratotomy RIGHT Hx of LASIK BOTH EYES History of colonoscopy H/O heart artery stent X2 - 2 YR AGO , ? TYPE - [facility] History of gastric bypass S/P cataract surgery HX, BOTH EYES History of cholecystectomy Family History Father Prostate cancer Skin cancer Son Family history of Crohn's disease Family/Other Hypertension "all" Denies family history of Ovarian cancer Myocardial infarction Breast cancer Colorectal cancer Social History Smoking Status: Current every day smoker Tobacco Type: Cigars Age Started Using Tobacco: 28; Cigarettes Per Day: 5 cigars; Second Hand Exposure: Yes; Do You Dip or Chew Tobacco: No; Hx Alcohol Use: Yes Alcohol type: beer Alcohol Intake Frequency: 4 or More x per/Week Hx Substance Use: No Preferred Language: Sami Communication Ability: Effective Visual Impairment: Limited Hearing Ability: Normal Environmental Compliance Officer Required: No Beliefs That Will Affect Care: None marital status: Current Living Situation: Spouse current occupational status: retired How many Children do You have: 2 Feels Safe at Home: Yes Safety Concerns: Feels Safe At This Time Childhood Exposure to Second-Hand Smoke: No Diet: Soft and regular caffeine: Yes during the past year weight has: remained stable Dental Care, Regularly: No Physical Activity Frequency: Does not Exercise Seatbelt Use: sometimes Sunscreen Use: No Assistive Devices: None Review of Systems Review of Systems: All systems reviewed & are unremarkable except as noted in HPI & below Physical Exam Constitutional: well developed, well nourished and + obese; no acute distress Eyes: no scleral abnormality Respiratory: normal respiratory effort; no respiratory distress and no labored breathing Gastrointestinal (Abdomen): Inspection/Auscultation: abdomen normal to inspection Musculoskeletal: Head/Neck/Chest: normocephalic Neurologic: moves all extremities and awake Psychiatric: Orientation: alert and oriented x 3 Genitourinary: Urinal with concentrated yellow urine Results & Data Vital Signs (Past 12 Hours) Vital Signs Temp Pulse Resp BP Pulse Ox O2 Del Method 11/19/23 11:36 36.6 C 67 20 118/76 95 Room Air 11/19/23 07:36 36.8 C 55 L 20 118/82 96 Room Air 11/19/23 02:48 36.8 C 68 18 126/78 94 Room Air PG Care Time/CCT Total # of Minutes Spent Total Time Spent with Patient: Total time spent is greater than 50% in coordination of care (as documented) at patient's floor/unit and/or counseling patient: Coding Level of Care Code 53703 INT INP/OBS CARE 2/55MIN Diagnoses Acute UTI N39.[address] scan, bladder R93.41 Adrenal myelolipoma D17.79
--- NOTE | 2023-11-19 16:30 | Discharge Summary ---
Discharge Summary Date of Service November 19, 2023 Principal Dx & Hospital Course #1 = Principal Diagnosis (1) Sepsis: Was sent to the ED from the urgent care clinic due to concerns for sepsis Patient has been experiencing dysuria, subjective fevers, right flank pain, After passing a likely large kidney stone On admission, patient met sepsis criteria, likely source UTI Chest x-ray was negative for acute findings, CT of the abdomen pelvis was negative for hydronephrosis or urinary calculi or other sources of infection -Cultures were obtained patient empirically started on IV antibiotics cefepime, This has been changed to ceftriaxone Ur cx with mixed karel, blood cxs remained NGTD but fevers and sepsis resolved, flank pain gone, hematuria resolved Finish out 5 more days of cefdinir 300mg po bid after discharge f/u with Urology as outpt for 2.2 cm bladder mass and 8 cm right adrenal mass PCP can f/u on final blood cx results after discharge (2) Abnormal CT scan, bladder: CT of the abdomen pelvis without contrast noted a subtle density within the left posterior aspect of the bladder. A partially calcified urothelial lesion cannot be excluded. Nonemergent urologic consultation is recommended for consideration of cystoscopy-consulted in hospital-f/u as outpt for cystoscopy (3) UTI (urinary tract infection): as above (4) Hypertension: BPs stable continue home metoprolol and lisinopril (5) HFrEF (heart failure with reduced ejection fraction): volume status euvolemic, LVEF is 35% as of 2021 had 6 beats asymptomatic VT while here but pt has declined ICD in the past and continues to tell me he doesn't care if he drops and does not want to do anything to prolong his life (6) Tobacco abuse: Patient smokes multiple cigars daily, has no interest in cessation He is stable on room air at this time and in no respiratory distress Plan DVT-has a h/o DVT--> continues on Eliquis Dispo-dc to home, discussed care with Admission HPI Per Admitting Provider Minda is a 73-year-old male with a past medical history significant for recurrent UTIs, ischemic cardiomyopathy (LVEF of 35% as of 2021), DVT (on Eliquis), current tobacco use, hypertension who presented to the [facility] ED at the recommendation of the urgent care clinic due to concerns for possible sepsis. On arrival to the ED the patient was noted to be tachycardic at 105, tachypneic at 29, hypertensive at 162/93, but otherwise stable. Labs were significant for a leukocytosis of 11 with neutrophil predominance of 10, and UA consistent with UTI. Chest x-ray was read as negative for acute findings. CT of the abdomen pelvis without contrast was read as negative for urinary calculi or hydronephrosis. Subtle density within the left posterior aspect of the bladder. A partially calcified uroileal lesion cannot be excluded. Nonemergent urology consultation for consideration for cystoscopy is recommended. 2 bowel containing ventral hernias without resultant bowel obstruction. 8.2 cm right adrenal myelo lipoma. Prior to admission blood cultures were obtained and urine was sent for urine culture. Patient was given a dose of cefepime and ordered 1 L normal saline. Patient was sitting in bed in no acute distress at the time of the exam with his bedside, history was obtained from both. He had been in his normal state of health when he believes he passed a kidney stone approximately 3 days ago as he noticed a large piece of debris with painful urination. Since then he has been having ongoing dysuria, hematuria, mild right flank pain, and subje ctive fevers. He had decreased appetite today which is why he initially presented to the urgent care clinic. Symptoms have improved since arrival other than his dysuria. Denies recent chest pain, shortness of breath, abdominal pain, nausea/vomiting, diarrhea, recent trauma, or recent wounds/skin infections. He smokes multiple cigars daily and has no intentions of quitting, he is not interested in nicotine patch. We discussed CODE STATUS, the patient wishes to be a DNR/DNI and for his to make medical decisions for him if he cannot himself. Please refer to Dr. Almanzar's attestation for any changes to the treatment plan Updated Medication List Medication Instructions Recorded Confirmed Type magnesium 250 mg tablet 250 mg PO QAM 05/24/20 11/17/23 History cholecalciferol (vitamin D3) 50 50 mcg PO DAILY 09/20/22 11/17/23 History mcg (2,000 unit) capsule clopidogrel 75 mg tablet (Plavix) 75 mg PO DAILY #90 tabs 05/18/23 11/17/23 Rx metoprolol succinate 25 mg 25 mg PO DAILY #90 tabs 05/18/23 11/17/23 Rx tablet,extended release 24 hr tamsulosin 0.4 mg capsule 0.4 mg PO DAILY #90 caps 09/05/23 11/17/23 Rx acetaminophen 500 mg/15 mL oral 500 mg PO QID PRN pain/fever 09/07/23 11/17/23 History liquid cranberry extract 200 mg capsule 400 mg PO DAILY 09/07/23 11/17/23 History lisinopril 10 mg tablet See Rx Instructions .Route .COMPLEX 11/17/23 11/17/23 History lisinopril 20 mg tablet See Rx Instructions .Route .COMPLEX 11/17/23 11/17/23 History nitrofurantoin 100 mg PO DAILY 11/17/23 11/17/23 History monohydrate/macrocrystals 100 mg capsule potassium chloride 10 mEq 10 meq PO DAILY muscle spasticity 11/17/23 11/17/23 History tablet,extended release (Klor-Con) apixaban 5 mg tablet (Eliquis) 5 mg PO BID #60 tabs 11/19/23 11/17/23 Rx cefdinir 300 mg capsule 300 mg PO BID 5 days #10 caps 11/19/23 Rx Hospital Stay Data Consultations 11/17/23 14:00 ED Decision to Admit Stat 11/19/23 08:52 Consult Urology Routine Diagnostic Imagining Performed 11/17/23 11:51 CT abd pelvis wo con Stat Pending Results Patient Have Any Pending Studies at Discharge: Yes (Final blood cultures-no growth to date) Discharge Instructions Given to Patient (Per Discharging Provider) Please finish out 5 more days of the antibiotic called cefdinir and then return to taking your usual Macrobid. You were found to have a mass in your bladder as well as a mass on your adrenal gland on the CT scan. Please follow up with the Urologist for a cystoscopy as planned. Total Time Total Time Spent Total Time Spent (In Minutes): 35 min Coding Level of Care Code 54554 INP/OBS DISCH >30 MIN Diagnoses Sepsis A41.[address] scan, bladder R93.41 UTI (urinary tract infection) N39.0 Primary hypertension I10 Hypertension type: primary hypertension HFrEF (heart failure with reduced ejection fraction) I50.20 Tobacco abuse Z72.0
== END 2023-11-19 16:51 | disposition home or self-care (01) | DRG 872 ==
LOC: ED 11:30 → SUATTDRO 14:07 → 2N 14:07